=== PATIENT | female | born 1975 | race Caucasian/White ===

== ENCOUNTER 2024-05-03 07:29 | Observation (INO) ==
[2024-05-03] MEDS ORDERED: ALBUTEROL HFA 8 GM INHALER INH PRN (12:11)
[2024-05-03] MEDS ORDERED: HYDROCORTISONE HC 2.5% CRM 30GM TUBE EXT PRN (12:11)
[2024-05-03] MEDS ORDERED: traMADol HCL 50 MG TABLET PO PRN (12:11)
[2024-05-03] MEDS ORDERED: ALUMINUM/MAGNESIUM SUSP 30 ML UDC PO PRN (12:14)
[2024-05-03] MEDS ORDERED: oxyCODONE HCL IR 5 MG TAB (IMMEDIATE RELEASE) PO PRN (12:14)
[2024-05-03] MEDS ORDERED: ONDANSETRON INJ 2 MG/ML 2 ML VIAL IV PRN (12:14)
--- NOTE | 2024-05-03 13:03 | History & Physical Report ---
Date of Service May 03, 2024 Assessment & Plan (1) UTI (urinary tract infection): Plan: Patient developed a fever around 0300 on 05/03 and went to [facility] ED Direct transfer to [facility] for possible sepsis S/p ureteroscopy and laser lithotripsy with Dr. Trujillo on 05/02 Labs at : Lactate 2.2, WBC 11, BUN 35.4, creatinine 2.07, chloride 112, troponin 7, UA infected Lactate WNL at 0.7 on arrival No leukocytosis; afebrile Hx of recurrent UTIs Most recent UCx on 03/23/2024 grew Proteus mirabilis with resistance to Cipro/levofloxacin Ceftriaxone 2000 mg IV q24h Follow current UA/UCx/Blood cx Daily catheter care Acetaminophen as needed for fever/pain IVF with Plasma-Lyte at 100mL/hr x 2 Urology assistance appreciated A.m. CBC, BMP (2) Staghorn calculus: Plan: Left-sided staghorn calculus x 1 year Patient had a procedure in [place] 1 month ago to have half of it removed She has been following with [facility] for stage II ureteroscopy (will require 2-3 more to completely remove staghorn) KUB ordered by urology to assess left ureteral stent placement (3) Anemia: Plan: Hgb 7.5 on arrival; most recently 10.8 on 03/22/2024 Per review of operative note, EBL was listed as 0 cc Hx of SALLY; MCV WNL at 84.5 Clinically, no signs of active bleeding on physical exam Ferritin, iron labs ordered for a.m. Trend a.m. CBC (4) Thrombocytopenia: Plan: Mild; platelet count 104 on arrival Hold heparin VTE ppx if platelet count drops below <100 Follow a.m. CBCs (5) Type 2 diabetes mellitus: Plan: No A1c on record Glucose 112 on admission Hold Sitagliptin, metformin SSI; with target BSG range 120-160mg/dL, CF 20, carb ratio 7 T2DM diet BSG ACHS Adjust regimen as needed AM A1c (6) Psychological disorder: Plan: Patient exhibits severe anxiety on arrival, and is very concerned that she is going to Continue topiramate, sertraline, buspirone (7) IBS (irritable bowel syndrome): Plan: Continue hyoscyamine QID (8) Hemorrhoids: Plan: Hydrocortisone cream as needed (9) VANDANA (obstructive sleep apnea): Plan: BiPAP HS (10) Legally blind: (11) Left nephrolithiasis: Plan Disposition: Admit to [facility] telemetry Full code T2DM diet VTE PPx: Heparin 5000 units SQ q12h Admission and Anticipated Discharge Date Admission Date: May 03, 2024 History of Present Illness Chief Complaint: Fever in the setting of recent urologic procedure Primary Care Provider: José Miguel Ramírez is a 48-year-old female with PMH of legal blindness, left-sided staghorn calculus, T2DM, IBS, GERD, OCD, recurrent UTIs, and anxiety/depression. Patient recently had a stage II ureteroscopy and lithotripsy with [facility] on 05/02 for her left-sided staghorn calculus. This calculus is not new to her. It was discovered around 1 year ago, and she had a procedure in [place] last month to have half of it removed. While the patient was initially thinking of having PCNL at [place], it was determined that it was easier for her to have 2-3 procedures done at [facility] to have a staghorn removed. After her procedure on 05/02, she reports that she developed a fever around 3 AM at home (100.7 F). She took Tylenol, which she reports helped, then she went to [facility] ED. [facility] was concern for possible sepsis due to a lactate of 2.2, and the patient was transferred to the ICU at [facility]. She appears very anxious in the room, and does endorse all symptoms associated with prior UTIs (burning with urination, dysuria, and suprapubic tenderness). She reports she has not had any of her regular morning medicine for 2 days. She does not use a BiPAP at night; no other supplemental oxygen at home. She is a former tobacco cigarette smoker; quit 6 years ago. She denies any recent alcohol use. Patient's vitals are stable at time of admission. ROS: Patient endorses fever, cold intolerance, trouble breathing (which she attributes to her anxiety/paranoia), burning with urination, dysuria, suprapubic tenderness, ongoing diarrhea, and left leg sciatica. Patient denies night sweats, dizziness/lightheadedness with movements, headache, chest pain, chest palpitations, pleuritic CP, SOB, cough, abdominal pain, nausea, or vomiting. Per discussion with fabrication and layout craftsman, and urology, it is unclear why the patient was a direct admit transfer to the ICU rather than one of the [facility] telemetry floors. Allergies Allergy/AdvReac Type Severity Reaction Status Date / Time adhesive tape Allergy Severe Verified 05/03/24 14:17 Penicillins Allergy Severe Rash Verified 05/03/24 14:17 aspirin AdvReac Severe Advised to Verified 05/03/24 14:17 avoid "due to angioma" blood thinner AdvReac Severe Advised to Uncoded 05/03/24 14:17 avoid "due to angioma" Home Medications Medication Instructions Recorded Confirmed Type cholecalciferol (vitamin D3) 50 50 mcg PO QAM 11/18/20 05/03/24 History mcg (2,000 unit) capsule cyanocobalamin (vitamin B-12) 500 1,000 mcg PO QAM 11/18/20 05/03/24 History mcg tablet acetazolamide 500 mg 500 mg PO BID 09/23/22 05/03/24 History capsule,extended release sertraline 100 mg tablet 200 mg PO QAM 09/23/22 05/03/24 History topiramate 200 mg tablet 200 mg PO BID 09/23/22 05/03/24 History albuterol sulfate 90 mcg/actuation 2 puff inhalation Q6H PRN sob 11/04/22 05/03/24 History aerosol inhaler (Ventolin HFA) famotidine 20 mg tablet (Pepcid) 20 mg PO HS 11/04/22 05/03/24 History sitagliptin phosphate 50 mg tablet 50 mg PO HS 12/01/22 05/03/24 History (Januvia) ferrous sulfate 325 mg (65 mg 325 mg PO QAM 04/23/23 05/03/24 History iron) tablet (iron) lisinopril 5 mg tablet 5 mg PO HS 04/23/23 05/03/24 History pantoprazole 40 mg tablet,delayed 40 mg PO BID #60 tabs 08/05/23 05/03/24 Rx release ascorbic acid (vitamin C) 500 mg 500 mg PO BID 04/21/24 05/03/24 History tablet,extended release (Vitamin C With Uyen Hips) atorvastatin 10 mg tablet 10 mg PO HS 04/21/24 05/03/24 History buspirone 30 mg tablet 30 mg PO BID 04/21/24 05/03/24 History clindamycin phosphate 1 % lotion 1 applic topical DAILY PRN 04/21/24 05/03/24 History inflammed boils hydrocortisone 2.5 % topical cream 1 applic SD BID PRN hemorrhoids 04/21/24 05/03/24 History with perineal applicator hyoscyamine sulfate 0.125 mg tablet 0.125 mg PO QID 04/21/24 05/03/24 History solifenacin 10 mg tablet (Vesicare) 10 mg PO DAILY #30 tabs 04/25/24 05/03/24 Rx sulfamethoxazole 800 1 tab PO BID #10 tabs 05/02/24 05/03/24 Rx mg-trimethoprim 160 mg tablet (Bactrim DS) tramadol 50 mg tablet 50 mg PO Q6H PRN pain #20 tabs 05/02/24 05/03/24 Rx metformin 500 mg tablet,extended 1,000 mg PO QAM 05/03/24 05/03/24 History release 24 hr nystatin 100,000 unit/gram topical 1 applic topical HS 05/03/24 05/03/24 History powder tamsulosin 0.4 mg capsule 0.4 mg PO DAILY 05/03/24 05/03/24 History Past Med/Surg History Problem List (Updated 05/03/24 @ 18:38 by Asad Infante PA-C) Thrombocytopenia Anemia Ureteral stent present Hemorrhoids occasional bleeding UTI (urinary tract infection) Staghorn calculus Left nephrolithiasis Nausea Diarrhea Encounter for pre-operative examination Hemorrhoids Heme positive stool GERD (gastroesophageal reflux disease) IBS (irritable bowel syndrome) Type 2 diabetes mellitus Cellulitis Legally blind VANDANA (obstructive sleep apnea) BiPAP UTI symptoms Obsessive compulsive disorder Anxiety and depression Frequency of micturition Urgency of urination Arthritis (Acute) Asthma (Acute) Psychological disorder (Acute) Sensation of pressure in bladder area (Acute) History of recurrent UTIs Medical History Osteoarthritis Diabetes mellitus, type 2 NIDDM Chronic sinusitis Staghorn calculus current - left side History of recurrent UTI (urinary tract infection) Legally blind VANDANA (obstructive sleep apnea) Bipap at night Hx of necrotizing fasciitis (2017) unknown cause. IBS (irritable bowel syndrome) Hemorrhoids occasional bleeding GERD (gastroesophageal reflux disease) Pseudotumor cerebri follows with [facility] Neurology Angioma brain angioma -- follows with [facility] neurology Orthopnea Overactive bladder Anxiety severe Depression OCD (obsessive compulsive disorder) Morbid obesity with BMI of 70 and over, adult Asthma well controlled Iron deficiency anemia Surgical History History of cystoscopy with stent placement and removal "some of the kidney stone" at [facility] 03/30/24 History of colonoscopy History of open reduction and internal fixation (ORIF) procedure LLE History of tonsillectomy History of x2 History of cholecystectomy History of surgery (2017) RLE x 7 surgeries r/t necrotizing fasciitis Family History Other Bladder cancer No family history of adverse response to anesthesia Social History Smoking Status: Former smoker Tobacco Type: Cigarettes Second Hand Exposure: No; Do You Dip or Chew Tobacco: No; Hx Alcohol Use: No Hx Substance Use: No Preferred Language: Lao Communication Ability: Effective Communication Ability Comment: pt is legally blind. does not read braille Cable Stretcher And Tester Required: No Beliefs That Will Affect Care: None Current Living Situation: Other Feels Safe at Home: Yes Assistive Devices: None Review of Systems Review of Systems: See HPI above Physical Exam Physical Exam: General: no acute distress; anxious; non-toxic appearing; cooperative; morbid obesity; SpO2 100% on RA; afebrile HEENT: normocephalic, atraumatic; no scleral icterus; PERRLA; unable to assess vision; hearing grossly intact Neck: supple; no lymphadenopathy; trachea midline Skin: warm, dry without signs of tenting; no cyanosis; no rashes, bruising, lesions, or erythema noted on the extremities, abdomen, flanks, or back CV: chest wall NTP; RRR; S1/S2 normal; no murmurs/rubs/gallops; pulses intact and symmetric at radial, DP, and PT Lungs: no acute respiratory distress; symmetrical chest wall expansion; clear breath sounds across all lung jain w/o adventitious sounds; no wheezing ABD: Soft, NTP; BS present; no rebound/guarding; suboptimal exam secondary to patient's body habitus; distention secondary to body habitus; negative CVA tenderness MSK: no tics or fasciculations; no edema noted in the LEs b/l, nonerythematous Neuro: A&Ox3; normal mood and affect; fluent speech; no focal deficits; sensation grossly intact and symmetric in the LEs b/l Results & Data Results & Data Vital Signs (Past 12 Hours) Vital Signs Temp Resp BP Pulse Ox O2 Del Method 05/03/24 12:17 Room Air 05/03/24 11:49 37.3 C 26 H 111/56 L 93 Room Air Laboratory Results Abnormal lab results 05/03/24 Range/Units 12:06 POC Glucose 112 H (70-99) mg/dl ECG Additional Comments: ECG revealed NSR at 99 bpm; QTc 526 (caution use of QT prolonging agents) Code Status & VTE Plan Code Status Full code VTE Prophylaxis Plan VTE Prophylaxis will be ordered: Yes Supervising Physician Co-Signing Physician Notes Patient was seen and examined independently I discussed the case with JEREMY MILAN I reviewed pertinent past medical social family history and also the plan of care and agree with the plan of care. Transfer to [facility] for concern for sepsis from the urological source with recent urological procedure with a lithotripsy for staghorn calculus on May 02. Patient previous had Proteus mirabilis urinary tract infection with some resistances. Patient was given vancomycin and Rocephin in the ER [place] subsequent continues on ceftriaxone here She had mild BERE on CKD 3 Patient is stable condition she is sight impaired . She appears no distress cardiac exam is regular lungs are clear Patient will be continued on Rocephin therapy hydration and follow renal function. She is minorly anemic undetermined this is a chronic disease and I will continue to follow. Any exceptions will be noted below PG Care Time/CCT Total # of Minutes Spent Total Time Spent with Patient: Total time spent is greater than 50% in coordination of care (as documented) at patient's floor/unit and/or counseling patient: C[place] [address] INT INP/OBS CARE 3/75MIN Patient Type Established Medical Decision Making High Complexity Diagnoses UTI (urinary tract infection) N39.0 Staghorn calculus N20.0 Anemia D64.9 Thrombocytopenia D69.6 Type 2 diabetes mellitus E11.9 Psychological disorder F99 IBS (irritable bowel syndrome) K58.9 Hemorrhoids K64.9 VANDANA (obstructive sleep apnea) G47.33 Legally blind H54.8 Left nephrolithiasis N20.0
[2024-05-03] MEDS: SODIUM CHLORIDE 0.9% 1,000 ML IV SCH (13:25)
[2024-05-03] MEDS: HYOSCYAMINE SULFATE 0.125 MG TAB PO SCH (13:26)
[2024-05-03] MEDS: cefTRIAXone SODIUM 2,000 MG/50 ML BAG IV SCH (13:26)
[2024-05-03 13:29] LABS: Anion Gap 6 (3-11); BUN Creatinine Ratio 20.5 (10-20); Blood Urea Nitrogen 36 mg/dl (6-23); Calcium 7.9 mg/dl (8.6-10.3); Carbon Dioxide 20 mmol/L (21-32); Chloride 111 mmol/L (98-107); Est GFR (African American) 38.7 ml/min; Est GFR (Non-African American) 33.4 ml/min; Glucose 107 mg/dl (70-99(Fasting)); Sodium 137 mmol/L (136-145)
[2024-05-03] MEDS: INSULIN ASPART PER UNIT CHARGE SC SCH (14:17)
--- NOTE | 2024-05-03 14:28 | Urology Consultation ---
Date of Consultation May 03, 2024 Assessment & Plan (1) UTI (urinary tract infection): (2) Staghorn calculus: (3) Ureteral stent present: Plan 48yo/F with a hx of left staghorn stone s/p Left URS/LL on 05/02 who was a direct transfer to [facility] from [facility] due to concern of sepsis. - Afebrile, hemodynamically stable, non-toxic appearing. - Labs on arrival - creatinine 1.76. - UCx to be collected. Blood cultures pending. On Ceftriaxone. Most recent UCx on 03/23/2024 grew Proteus mirabilis resistant to fluoroquinolones. - Voiding without issue. Has external cath in place. Continue to monitor. Bladder scan PRN. - KUB ordered to assess left stent placement. - Continue antibiotics and tailor as culture data becomes available. - Continue supportive care. - Urology will follow along. History of Present Illness Attending Physician: Bg Sibley MD History of Present Illness 48-year-old female with PMHx including legal blindness, left-sided staghorn calculus, T2DM, IBS, GERD, OCD, recurrent UTIs, and anxiety/depression who underwent Left URS/LL/stent on 05/02 for her left-sided staghorn calculus. After her procedure on 05/02, she developed fever at home of 100.7F for which she took Tylenol. She then proceeded to [facility] ED for evaluation. At , there was concern for possible sepsis due to lactate of 2.2 and the patient was transferred to ICU at [facility]. On arrival, she was afebrile and hemodynamically stable. Labs shows a creatinine of 1.76. Blood cultures collected and pending. IV Ceftriaxone given. KUB ordered to check stent placement. Labs at : Lactate 2.2, WBC 11, creatinine 2.07. Pt seen at bedside in the ICU. Awake, resting in bed eating lunch on arrival. No acute distress. Very anxious at time of exam. She reports some bladder discomfort with voiding. External purewick cath in place. Feels she is emptying her bladder well. Reports fever at home. No nausea or vomiting. Pt is well known to the urology service, follows with Dr. Trujillo. Allergies Allergy/AdvReac Type Severity Reaction Status Date / Time adhesive tape Allergy Severe Verified 05/03/24 14:17 Penicillins Allergy Severe Rash Verified 05/03/24 14:17 aspirin AdvReac Severe Advised to Verified 05/03/24 14:17 avoid "due to angioma" blood thinner AdvReac Severe Advised to Uncoded 05/03/24 14:17 avoid "due to angioma" Home Medications Medication Instructions Recorded Confirmed Type cholecalciferol (vitamin D3) 50 50 mcg PO QAM 11/18/20 05/03/24 History mcg (2,000 unit) capsule cyanocobalamin (vitamin B-12) 500 1,000 mcg PO QAM 11/18/20 05/03/24 History mcg tablet acetazolamide 500 mg 500 mg PO BID 09/23/22 05/03/24 History capsule,extended release sertraline 100 mg tablet 200 mg PO QAM 09/23/22 05/03/24 History topiramate 200 mg tablet 200 mg PO BID 09/23/22 05/03/24 History albuterol sulfate 90 mcg/actuation 2 puff inhalation Q6H PRN sob 11/04/22 05/03/24 History aerosol inhaler (Ventolin HFA) famotidine 20 mg tablet (Pepcid) 20 mg PO HS 11/04/22 05/03/24 History sitagliptin phosphate 50 mg tablet 50 mg PO HS 12/01/22 05/03/24 History (Januvia) ferrous sulfate 325 mg (65 mg 325 mg PO QAM 04/23/23 05/03/24 History iron) tablet (iron) lisinopril 5 mg tablet 5 mg PO HS 04/23/23 05/03/24 History pantoprazole 40 mg tablet,delayed 40 mg PO BID #60 tabs 08/05/23 05/03/24 Rx release ascorbic acid (vitamin C) 500 mg 500 mg PO BID 04/21/24 05/03/24 History tablet,extended release (Vitamin C With Uyen Hips) atorvastatin 10 mg tablet 10 mg PO HS 04/21/24 05/03/24 History buspirone 30 mg tablet 30 mg PO BID 04/21/24 05/03/24 History clindamycin phosphate 1 % lotion 1 applic topical DAILY PRN 04/21/24 05/03/24 History inflammed boils hydrocortisone 2.5 % topical cream 1 applic ID BID PRN hemorrhoids 04/21/24 05/03/24 History with perineal applicator hyoscyamine sulfate 0.125 mg tablet 0.125 mg PO QID 04/21/24 05/03/24 History solifenacin 10 mg tablet (Vesicare) 10 mg PO DAILY #30 tabs 04/25/24 05/03/24 Rx sulfamethoxazole 800 1 tab PO BID #10 tabs 05/02/24 05/03/24 Rx mg-trimethoprim 160 mg tablet (Bactrim DS) tramadol 50 mg tablet 50 mg PO Q6H PRN pain #20 tabs 05/02/24 05/03/24 Rx metformin 500 mg tablet,extended 1,000 mg PO QAM 05/03/24 05/03/24 History release 24 hr nystatin 100,000 unit/gram topical 1 applic topical HS 05/03/24 05/03/24 History powder tamsulosin 0.4 mg capsule 0.4 mg PO DAILY 05/03/24 05/03/24 History Patient History Medical History Osteoarthritis Diabetes mellitus, type 2 NIDDM Chronic sinusitis Staghorn calculus current - left side History of recurrent UTI (urinary tract infection) Legally blind VANDANA (obstructive sleep apnea) Bipap at night Hx of necrotizing fasciitis (2017) unknown cause. IBS (irritable bowel syndrome) Hemorrhoids occasional bleeding GERD (gastroesophageal reflux disease) Pseudotumor cerebri follows with [facility] Neurology Angioma brain angioma -- follows with [facility] neurology Orthopnea Overactive bladder Anxiety severe Depression OCD (obsessive compulsive disorder) Morbid obesity with BMI of 70 and over, adult Asthma well controlled Iron deficiency anemia Surgical History History of cystoscopy with stent placement and removal "some of the kidney stone" at [facility] 03/30/24 History of colonoscopy History of open reduction and internal fixation (ORIF) procedure LLE History of tonsillectomy History of x2 History of cholecystectomy History of surgery (2017) RLE x 7 surgeries r/t necrotizing fasciitis Family History Other Bladder cancer No family history of adverse response to anesthesia Social History Smoking Status: Former smoker Tobacco Type: Cigarettes Second Hand Exposure: No; Do You Dip or Chew Tobacco: No; Hx Alcohol Use: No Hx Substance Use: No Preferred Language: Sami Communication Ability: Effective Communication Ability Comment: pt is legally blind. does not read braille Lead Systems Engineer Required: No Beliefs That Will Affect Care: None Current Living Situation: Other Feels Safe at Home: Yes Assistive Devices: None Review of Systems Review of Systems: All systems reviewed & are unremarkable except as noted in HPI & below Physical Exam Constitutional: + obese; no acute distress Eyes: Legally blind Neck: normal visual inspection Respiratory: no respiratory distress and no labored breathing Musculoskeletal: Head/Neck/Chest: normocephalic Skin: No visible rashes or lesions to exposed skin areas Neurologic: awake Psychiatric: Orientation: alert and oriented x 3 Affect: + anxious affect Results & Data Vital Signs (Past 12 Hours) Vital Signs Temp Pulse Resp BP Pulse Ox Pulse Ox O2 Del Method 05/03/24 13:28 36.8 C 24 117/62 100 Room Air 05/03/24 13:27 100 05/03/24 12:17 Room Air 05/03/24 11:49 37.3 C 26 H 111/56 L 93 Room Air 05/03/24 11:36 95 H O2 Del Method 05/03/24 13:28 05/03/24 13:27 Room Air 05/03/24 12:17 05/03/24 11:49 05/03/24 11:36 PG Care Time/CCT Total # of Minutes Spent Total Time Spent with Patient: Total time spent is greater than 50% in coordination of care (as documented) at patient's floor/unit and/or counseling patient: Coding Level of Care Code 28156 IN/OBS CONSULT LVL 3,45M Diagnoses UTI (urinary tract infection) N39.0 Staghorn calculus N20.0 Ureteral stent present Z96.0
[2024-05-03] MEDS: PLASMA-LYTE A 1,000 ML IV SCH (14:53)
--- NOTE | 2024-05-03 15:01 | Electrocardiogram Report ---
Test Reason : Blood Pressure : / mmHG Vent. Rate : 099 BPM Atrial Rate : 100 BPM P-R Int : 150 ms QRS Dur : 102 ms QT Int : 410 ms P-R-T Axes : 047 043 038 degrees QTc Int : 526 ms Age and gender specific ECG analysis Normal sinus rhythm Left atrial enlargement ST depression in Anterior leads , consider ischemia Abnormal ECG No previous ECGs available Confirmed by Edy Flores ([id number]) on 05/03/2024 3:00:57 PM Referred By: Twan Kinsey Confirmed By:Edy Flores
[2024-05-03 15:25] LABS: Basophils # (auto) 0.02 K/uL (0.00-0.20); Basophils % (auto) 0.3 %; Hemoglobin 7.5 g/dl (12.0-16.0); Immature Granulocytes # (auto) 0.04 K/uL (0.01-0.20); Immature Granulocytes % (auto) 0.6 %; Lymphocytes # (auto) 0.48 K/uL (1.20-3.40); Lymphocytes % (auto) 7.2 %; Mean Corpuscular Hemoglobin 25.3 pg (25.0-34.0); Mean Corpuscular Volume 84.5 fL (80.0-100.0); Mean Platelet Volume 9.3 fL (9.4-12.4); Monocytes # (auto) 0.67 K/uL (0.11-0.59); Neutrophils % (auto) 81.9 %; Platelet Count 104 K/uL (130-400); RDW Coefficient of Variation 15.8 % (11.5-14.5); RDW Standard Deviation 48.3 fL (36.4-46.3); Red Blood Count 2.96 M/uL (4.20-5.40); White Blood Count 6.71 K/ul (4.8-10.8)
[2024-05-03 15:49] LABS: Microcytosis Present
--- NOTE | 2024-05-03 16:52 | XRay Report ---
KUB CLINICAL HISTORY: Left ureteral stent placement. FINDINGS: An AP, portable, supine abdominal radiograph is compared to study dated 04/19/2024. Cholecys tectomy clips are noted in the right upper quadrant. A left ureteral stent is in place. No calcificat ions are clearly seen in the left ureter along the course of the stent. Suspect a large staghorn calc ulus of the left kidney. No bowel obstruction is identified. The skeletal structures are osteopenic a nd appear intact. IMPRESSION: 1. A left ureteral stent is in place. No calcifications are seen along the course of the stent. 2. Suspect a large Staghorn calculus within the left renal collecting system. Electronically signed by: Anmol Mosqueda M.D. 05/03/2024 4:50 PM
--- NOTE | 2024-05-03 19:38 | Communication Note ---
Date of Service: May 03, 2024 [facility] urology team asked this provider to follow-up on results of KUB as patient has had a recent cystoscopy with ureteral stent. The KUB was reviewed from today and it does appear that patient's left ureteral stent is in good position.
[2024-05-03] MEDS: ACETAMINOPHEN 325 MG TAB PO PRN (19:56)
[2024-05-03 20:07] LABS: Appearance Urine Turbid (Clear); Bacteria Urine Automated 2+ (None Seen); Bilirubin Urine Negative (Negative); Blood Urine 3+ (Negative); Color Urine Orange; Glucose Urine UA Negative (Negative); Ketones Urine Negative (Negative); Leukocyte Esterase Urine 3+ (Negative); Nitrite Urine Negative (Negative); Protein Urine 3+ (Negative); RBC Urine Automated >20 /hpf (0-2); Specific Gravity Urine 1.017 (1.000-1.030); Urobilinogen Urine Negative (Negative); WBC Urine Automated >50 /hpf (0-5)
[2024-05-03] MEDS: ATORVASTATIN 10 MG TAB PO SCH (23:04)
[2024-05-03] MEDS: lisinopril 5 MG TAB PO SCH (23:04)
[2024-05-03] MEDS: PANTOprazole 40 MG TAB PO SCH (23:05)
[2024-05-03] MEDS: acetaZOLAMIDE 500 MG CAPCR PO SCH (23:05)
[2024-05-03] MEDS: busPIRone 15 MG TAB PO SCH (23:05)
[2024-05-03] MEDS: TOPIRAMATE 100 MG TAB PO SCH (23:05)
[2024-05-03] MEDS: FAMOTIDINE 20 MG TAB PO SCH (23:06)
[2024-05-03] MEDS: HEPARIN SOD 5,000 UNIT/0.5 ML VIAL SQ SCH (23:06)
[2024-05-04] MEDS: MENTHOL-ZINC OXIDE 360 APPLN/120 GM TUBE EXT SCH (00:54)
--- NOTE | 2024-05-04 07:52 | Hospitalist Progress Note ---
Date of Service May 04, 2024 Assessment & Plan (1) UTI (urinary tract infection): Plan: Patient developed a fever around 0300 on 05/03 and went to [facility] ED She was transferred to [place] for possible sepsis in the setting of recent lithotripsy on 05/02 Lactate WNL at 0.7 on arrival No leukocytosis; afebrile Patient remains afebrile on 05/04 Hx of recurrent UTIs Most recent UCx on 03/23/2024 grew Proteus mirabilis with resistance to Cipro/levofloxacin Continue ceftriaxone 2000 mg IV q24h Follow current UA/UCx/Blood cx Daily catheter care Acetaminophen as needed for fever/pain Additional IVF with Plasma-Lyte at 100mL/hr x 2 (set to end on 05/05) Urology assistance appreciated Creatinine level increased overnight from 1.76 on 05/03 --> 1.89 on 05/04 Once trending in the right direction, she can likely be discharged on p.o. antibiotics Hold lisinopril A.m. CBC, BMP (2) Staghorn calculus: Plan: Left-sided staghorn calculus x 1 year Patient had a procedure in [place] 1 month ago to have half of it removed She has been following with [place] urology for stage II ureteroscopy (will require 2-3 more to completely remove staghorn) KUB on 05/03 showed left ureteral stent is in place (3) Iron deficiency anemia: Plan: Hgb 7.5 on 05/03 --> 8.4 on 05/04 Per review of operative note, EBL was listed as 0 cc Hx of SALLY; MCV WNL at 84.5 Clinically, no signs of active bleeding on physical exam Iron < 10 L on a.m. labs 05/04 Ferritin WNL Patient reports she has not been taking her iron prior to urologic procedure Restart ferrous sulfate 325 mg p.o. daily at 6 PM Trend a.m. CBC (4) Fall: Plan: Patient sustained a mechanical ground-level fall while ambulating with her walker on the afternoon of 05/04 No head strike; no LOC; however, patient was able to get up on her own and a code lift was called Fall precaution PT/OT evaluations appreciate (5) Type 2 diabetes mellitus: Plan: A1c 5.5% on 05/04 Hold Sitagliptin, metformin Loose SSI with target BSG range 120-160mg/dL, CF 20, carb ratio 7 T2DM diet BSG ACHS Adjust regimen as needed (6) Psychological disorder: Plan: Patient exhibits severe anxiety on arrival, and is very concerned that she is going to Continue topiramate, sertraline, buspirone (7) IBS (irritable bowel syndrome): Plan: Continue hyoscyamine QID (8) Hemorrhoids: Plan: Hydrocortisone cream as needed (9) VANDANA (obstructive sleep apnea): Plan: BiPAP HS (10) Thrombocytopenia: Plan: Mild; platelet count 105 on 05/04 (11) Angioma: Plan: Patient follows with [facility] Hold chemical DVT PPx (12) Legally blind: (13) Left nephrolithiasis: Plan Disposition: Downgrade MedSurg telemetry --> MedSurg Full code T2DM diet VTE PPx: Patient has been declining blood thinners; will start on SCDs Admission and Anticipated Discharge Date Admission Date: May 03, 2024 Subjective Patient denies any new fevers since she has been in the hospital. She remains anxious, and is concerned about her overall state of health. Her only new symptom at this time is loose stool, but she attributes this to her IBS, which commonly acts up when she is in the hospital. She is not having any new UTI symptoms other than frequent urination (in the setting of IV fluids); burning with urination has resolved. She reports she is eating and drinking well, and ambulating well with a walker. She reports that she has been declining her heparin SQ BID as she was told in the past that she has a history of carcinous angioma, and has weak blood vessels in her brain by a neurologist; for this reason she is not allowed to take aspirin or any blood thinners. She would like to be updated regularly with her hemoglobin levels and white blood cell count. She is okay to use powder on her creases, that she plans to bring in from home. ROS: Patient endorses sweating, increased urinary frequency, and potential blood in her urine. Patient denies fever, chills, chest pain, chest pressure, chest palpitations, SOB, cough, pleuritic CP, wheezing, abdominal pain, N/V/D, burning with urination, or blood in her stool. Addendum written at 1417: Patient was a "code lift" this afternoon. She reportedly fell while walking; no head strike; no LOC. Patient is not currently on blood thinners. Patient reports that she might have banged her right ankle, but denies any other injuries. Initially, attempted to lift patient with 2 other security guards, but was unable. Patient was very anxious at this time regarding being lifted. Nursing obtained Radha lift from sterile processing, and were able to successfully get her back into bed. Review of Systems Review of Systems: See HPI above Physical Exam Physical Exam: General: no acute distress; anxious; non-toxic appearing; cooperative; morbid obesity; SpO2 100% on RA; afebrile HEENT: normocephalic, atraumatic; no scleral icterus; PERRLA; unable to assess vision; hearing grossly intact Neck: supple; no lymphadenopathy; trachea midline Skin: warm, dry without signs of tenting; no cyanosis; no rashes, bruising, lesions, or erythema noted on the extremities, abdomen, flanks, or back CV: chest wall NTP; RRR; S1/S2 normal; no murmurs/rubs/gallops; pulses intact and symmetric at radial, DP, and PT Lungs: no acute respiratory distress; symmetrical chest wall expansion; clear breath sounds across all lung jain w/o adventitious sounds; no wheezing ABD: Soft, NTP; BS present; no rebound/guarding; suboptimal exam secondary to patient's body habitus; distention secondary to body habitus Back: Negative CVA tenderness MSK: no tics or fasciculations; no edema noted in the LEs b/l, nonerythematous Neuro: A&Ox3; normal mood and affect; fluent speech; no focal deficits; sensation grossly intact and symmetric in the LEs b/l Results & Data Results & Data Vital Signs (Past 12 Hours) Vital Signs Temp Pulse Pulse Resp BP BP Pulse Ox 05/04/24 03:14 36.6 C 84 18 111/69 97 05/04/24 00:22 81 17 97 05/03/24 22:24 37.1 C 93 H 16 112/69 95 05/03/24 22:00 85 O2 Del Method FiO2 05/04/24 03:14 Room Air 05/04/24 00:22 21 05/03/24 22:24 Room Air 05/03/24 22:00 Laboratory Results Abnormal lab results 05/03/24 05/03/24 05/03/24 Range/Units 12:34 14:48 17:10 RBC 2.96 L (4.20-5.40) M/uL Hgb 7.5 L (12.0-16.0) g/dl Hct 25.0 L (37.0-47.0) % MCHC 30.0 L (32.0-36.0) g/dL RDW Std Deviation 48.3 H (36.4-46.3) fL RDW Coeff of Eleni 15.8 H (11.5-14.5) % Plt Count 104 L (130-400) K/uL MPV 9.3 L (9.4-12.4) fL Lymph # (Auto) 0.48 L (1.20-3.40) K/uL Island # (Auto) 0.67 H (0.11-0.59) K/uL Chloride 111 H (98-107) mmol/L Carbon Dioxide 20 L (21-32) mmol/L BUN 36 H (6-23) mg/dl Creatinine 1.76 H (0.6-1.2) mg/dl BUN/Creatinine Ratio 20.5 H (10-20) Glucose 107 H (70-99(Fasting)) mg/dl POC Glucose 118 H (70-99) mg/dl Calcium 7.9 L (8.6-10.3) mg/dl Iron (35-150) mcg/dl Unsaturated IBC (155-355) mcg/dl Urine Appearance (Clear) Urine Protein (Negative) Urine Blood (Negative) Ur Leukocyte Esterase (Negative) Urine WBC (Auto) (0-5) /hpf Urine RBC (Auto) (0-2) /hpf U Hyaline Cast (Auto) (0-2) /lpf U Epithel Cells (Auto) (0-2) /hpf Urine Bacteria (Auto) (None Seen) Urine Yeast (None Prsent) 05/03/24 05/03/24 05/04/24 Range/Units 19:42 19:57 07:40 RBC 3.27 L (4.20-5.40) M/uL Hgb 8.4 L (12.0-16.0) g/dl Hct 28.2 L (37.0-47.0) % MCHC 29.8 L (32.0-36.0) g/dL RDW Std Deviation 49.3 H (36.4-46.3) fL RDW Coeff of Eleni 15.9 H (11.5-14.5) % Plt Count 105 L (130-400) K/uL MPV (9.4-12.4) fL Lymph # (Auto) (1.20-3.40) K/uL Island # (Auto) (0.11-0.59) K/uL Chloride 113 H (98-107) mmol/L Carbon Dioxide 19 L (21-32) mmol/L BUN 36 H (6-23) mg/dl Creatinine 1.89 H (0.6-1.2) mg/dl BUN/Creatinine Ratio (10-20) Glucose (70-99(Fasting)) mg/dl POC Glucose 112 H (70-99) mg/dl Calcium 8.2 L (8.6-10.3) mg/dl Iron < 10 L (35-150) mcg/dl Unsaturated IBC 143 L (155-355) mcg/dl Urine Appearance Turbid A (Clear) Urine Protein 3+ H (Negative) Urine Blood 3+ H (Negative) Ur Leukocyte Esterase 3+ H (Negative) Urine WBC (Auto) >50 H (0-5) /hpf Urine RBC (Auto) >20 H (0-2) /hpf U Hyaline Cast (Auto) 3-5 H (0-2) /lpf U Epithel Cells (Auto) 11-20 H (0-2) /hpf Urine Bacteria (Auto) 2+ H (None Seen) Urine Yeast Present A (None Prsent) 05/04/24 05/04/24 Range/Units 08:07 12:20 RBC (4.20-5.40) M/uL Hgb (12.0-16.0) g/dl Hct (37.0-47.0) % MCHC (32.0-36.0) g/dL RDW Std Deviation (36.4-46.3) fL RDW Coeff of Eleni (11.5-14.5) % Plt Count (130-400) K/uL MPV (9.4-12.4) fL Lymph # (Auto) (1.20-3.40) K/uL Island # (Auto) (0.11-0.59) K/uL Chloride (98-107) mmol/L Carbon Dioxide (21-32) mmol/L BUN (6-23) mg/dl Creatinine (0.6-1.2) mg/dl BUN/Creatinine Ratio (10-20) Glucose (70-99(Fasting)) mg/dl POC Glucose 101 H 102 H (70-99) mg/dl Calcium (8.6-10.3) mg/dl Iron (35-150) mcg/dl Unsaturated IBC (155-355) mcg/dl Urine Appearance (Clear) Urine Protein (Negative) Urine Blood (Negative) Ur Leukocyte Esterase (Negative) Urine WBC (Auto) (0-5) /hpf Urine RBC (Auto) (0-2) /hpf U Hyaline Cast (Auto) (0-2) /lpf U Epithel Cells (Auto) (0-2) /hpf Urine Bacteria (Auto) (None Seen) Urine Yeast (None Prsent) PG Care Time/CCT Total # of Minutes Spent Total Time Spent with Patient: Total time spent is greater than 50% in coordination of care (as documented) at patient's floor/unit and/or counseling patient: [place] [address] SUB INP/OBS CARE 3/50MIN Patient Type Established History Comprehensive Exam Comprehensive Medical Decision Making Moderate Complexity Diagnoses UTI (urinary tract infection) N39.0 Staghorn calculus N20.0 Iron deficiency anemia D50.9 Fall W19.XXXA Type 2 diabetes mellitus E11.9 Psychological disorder F99 IBS (irritable bowel syndrome) K58.9 Hemorrhoids K64.9 VANDANA (obstructive sleep apnea) G47.33 Thrombocytopenia D69.6 Angioma D18.00 Legally blind H54.8 Left nephrolithiasis N20.0
[2024-05-04 08:04] LABS: Hematocrit (blood only) 28.2 % (37.0-47.0); Hemoglobin 8.4 g/dl (12.0-16.0); Mean Corpuscular Hemoglobin 25.7 pg (25.0-34.0); Mean Corpuscular Hgb Conc 29.8 g/dL (32.0-36.0); Mean Corpuscular Volume 86.2 fL (80.0-100.0); Mean Platelet Volume 9.4 fL (9.4-12.4); Platelet Count 105 K/uL (130-400); RDW Coefficient of Variation 15.9 % (11.5-14.5); RDW Standard Deviation 49.3 fL (36.4-46.3); Red Blood Count 3.27 M/uL (4.20-5.40); White Blood Count 5.49 K/ul (4.8-10.8)
[2024-05-04] MEDS: SERTRALINE HCL 100 MG TABLET PO SCH (08:06)
[2024-05-04] MEDS: OXYBUTYNIN CHLORIDE XL 5 MG TABCR PO SCH (08:07)
[2024-05-04 08:35] LABS: Anion Gap 8 (3-11); Blood Urea Nitrogen 36 mg/dl (6-23); Calcium 8.2 mg/dl (8.6-10.3); Carbon Dioxide 19 mmol/L (21-32); Chloride 113 mmol/L (98-107); Est GFR (African American) 35.5 ml/min; Est GFR (Non-African American) 30.6 ml/min; Glucose 96 mg/dl (70-99(Fasting)); Sodium 140 mmol/L (136-145)
[2024-05-04 08:37] LABS: Iron < 10 mcg/dl (35-150); Unsaturated Iron Binding Cap 143 mcg/dl (155-355)
[2024-05-04] MEDS: FERROUS SULFATE 325 MG TAB PO SCH ×2 (08:39→17:14)
[2024-05-04 08:54] LABS: Ferritin 124.6 ng/ml (8-388)
[2024-05-04 09:02] LABS: Estimated Average Glucose 111 mg/dl; Hemoglobin A1C 5.5 % (4.5-5.6)
[2024-05-04] MEDS: CHOLECALCIFEROL 25 MCG (1000 UNITS) TAB PO SCH (09:14)
[2024-05-04] MEDS: CYANOCOBALAMIN (B-12) 500 MCG TABLET PO SCH (09:14)
--- NOTE | 2024-05-04 09:21 | Urology Progress Note ---
Date of Service May 04, 2024 Assessment & Plan (1) UTI (urinary tract infection): (2) Staghorn calculus: (3) Ureteral stent present: Plan 48yo/F with a hx of left staghorn stone s/p Left URS/LL on 05/02 who was a direct transfer to [place] from [facility] due to concern of sepsis. - Afebrile and hemodynamically stable at present. - Labs reviewed - WBC 5.49, Hemoglobin 8.4, Creatinine 1.89. Continue to trend. - Urine and blood cultures pending. On Ceftriaxone. - Voiding without issue. Continue to monitor. Bladder scan PRN. - KUB shows the left ureteral stent in appropriate position. - Continue antibiotics and tailor as culture data becomes available. - Continue supportive care. - No acute intervention warranted. - Urology will follow. Admission and Anticipated Discharge Date Admission Date: May 03, 2024 Subjective Pt seen at bedside this AM Awake, sitting in bedside chair on arrival No acute distress She reports some mild stent discomfort No fevers Voiding spontaneously Review of Systems Constitutional: as per Subjective / HPI Genitourinary: as per Subjective / HPI Physical Exam Constitutional: + obese; no acute distress Eyes: Legally blind Respiratory: no respiratory distress and no labored breathing Neurologic: awake Psychiatric: Orientation: alert and oriented x 3 Affect: + anxious affect Results & Data Vital Signs (Past 12 Hours) Vital Signs Temp Pulse Pulse Resp BP BP Pulse Ox 05/04/24 08:25 36.8 C 87 17 102/62 98 05/04/24 03:14 36.6 C 84 18 111/69 97 05/04/24 00:22 81 17 97 05/03/24 22:24 37.1 C 93 H 16 112/69 95 05/03/24 22:00 85 O2 Del Method FiO2 05/04/24 08:25 Room Air 05/04/24 03:14 Room Air 05/04/24 00:22 21 05/03/24 22:24 Room Air 05/03/24 22:00 PG Care Time/CCT Total # of Minutes Spent Total Time Spent with Patient: Total time spent is greater than 50% in coordination of care (as documented) at patient's floor/unit and/or counseling patient: Coding Level of Care Code 35520 SUB INP/OBS CARE 2/35MIN Diagnoses UTI (urinary tract infection) N39.0 Staghorn calculus N20.0 Ureteral stent present Z96.0
[2024-05-04] MEDS: PLASMA-LYTE A 1,000 ML IV SCH (17:14)
[2024-05-04] MEDS: HYOSCYAMINE SULFATE 0.125 MG TAB PO SCH (20:40)
[2024-05-05] MEDS: NYSTATIN POWDER 15GM BTL EXT PRN (05:19)
[2024-05-05 07:29] LABS: Hematocrit (blood only) 25.2 % (37.0-47.0); Hemoglobin 7.4 g/dl (12.0-16.0); Mean Corpuscular Hemoglobin 25.3 pg (25.0-34.0); Mean Corpuscular Hgb Conc 29.4 g/dL (32.0-36.0); Mean Corpuscular Volume 86.3 fL (80.0-100.0); Mean Platelet Volume 9.7 fL (9.4-12.4); Platelet Count 115 K/uL (130-400); RDW Coefficient of Variation 15.7 % (11.5-14.5); RDW Standard Deviation 49.7 fL (36.4-46.3); Red Blood Count 2.92 M/uL (4.20-5.40); White Blood Count 4.19 K/ul (4.8-10.8)
[2024-05-05 07:58] LABS: Anion Gap 8 (3-11); Blood Urea Nitrogen 34 mg/dl (6-23); Calcium 8.2 mg/dl (8.6-10.3); Carbon Dioxide 19 mmol/L (21-32); Chloride 115 mmol/L (98-107); Est GFR (African American) 40.3 ml/min; Est GFR (Non-African American) 34.8 ml/min; Glucose 103 mg/dl (70-99(Fasting)); Potassium 4.1 mmol/L (3.5-5.1); Sodium 142 mmol/L (136-145)
--- NOTE | 2024-05-05 08:47 | Urology Progress Note ---
Date of Service May 05, 2024 Assessment & Plan (1) UTI (urinary tract infection): (2) Staghorn calculus: (3) Ureteral stent present: Plan 48yo/F with a hx of left staghorn stone s/p Left URS/LL on 05/02 who was a direct transfer to [place] from [facility] due to concern of sepsis. - Afebrile and hemodynamically stable at present. - Labs reviewed - WBC 4.19, Hemoglobin 7.4, Creatinine 1.70. - Urine and blood cultures prelim no growth. On Ceftriaxone. - Voiding without issue. Continue to monitor. Bladder scan PRN. - KUB shows the left ureteral stent in appropriate position. - No acute intervention warranted. - Continue antibiotics and tailor as culture data becomes available. - Continue supportive care. - Okay to d/c from perspective when medically stable. - Pt is scheduled for the next stage of stone treatment on 05/16, will keep as scheduled for now. - Urology will sign-off. Please call with any further questions or concerns. Admission and Anticipated Discharge Date Admission Date: May 03, 2024 Subjective Pt seen at bedside this AM Awake, sitting in bedside chair on arrival No acute distress Tolerating the stent with minimal discomfort Voiding spontaneously, report some frequency Denies dysuria or hematuria Denies f/c/n/v Review of Systems Constitutional: as per Subjective / HPI Genitourinary: as per Subjective / HPI Physical Exam Constitutional: + obese; no acute distress Eyes: Legally blind Respiratory: no respiratory distress and no labored breathing Neurologic: awake Psychiatric: Orientation: alert and oriented x 3 Affect: + anxious affect Results & Data Vital Signs (Past 12 Hours) Vital Signs O2 Del Method 05/05/24 07:39 Room Air PG Care Time/CCT Total # of Minutes Spent Total Time Spent with Patient: Total time spent is greater than 50% in coordination of care (as documented) at patient's floor/unit and/or counseling patient: Coding Level of Care Code 41267 SUB INP/OBS CARE 2/35MIN Diagnoses UTI (urinary tract infection) N39.0 Staghorn calculus N20.0 Ureteral stent present Z96.0
[2024-05-05] MEDS: TAMSULOSIN HCL 0.4 MG CAP PO SCH (09:35)
--- NOTE | 2024-05-05 15:38 | Hospitalist Progress Note ---
Date of Service May 05, 2024 Assessment & Plan (1) UTI (urinary tract infection): Plan: Patient developed a fever around 0300 on 05/03 and went to [facility] ED She was transferred to [place] for possible sepsis in the setting of recent lithotripsy on 05/02 Lactate WNL at 0.7 on arrival No leukocytosis; afebrile Patient remains afebrile Hx of recurrent UTIs Most recent UCx on 03/23/2024 grew Proteus mirabilis with resistance to Cipro/levofloxacin Continue ceftriaxone 2000 mg IV q24h Follow current UA/UCx/Blood cx Daily catheter care Acetaminophen as needed for fever/pain Additional IVF with Plasma-Lyte at 100mL/hr x 2 (set to end on 05/05) Urology assistance appreciated Creatinine level increased overnight from 1.76 on 05/03 --> 1.89 on 05/04. Today 1.7. But her baseline on 04/06 was 1.79 She can likely be switched to p.o. antibiotics soon. Hold lisinopril Urology has signed off. (2) Staghorn calculus: Plan: Left-sided staghorn calculus x 1 year Patient had a procedure in [place] 1 month ago to have half of it removed She has been following with [place] urology for stage II ureteroscopy (will require 2-3 more to completely remove staghorn) KUB on 05/03 showed left ureteral stent is in place Urology did not recommend any acute intervention. Recommended continuing antibiotics (3) Iron deficiency anemia: Plan: Hgb 7.5 on 05/03 --> 8.4 on 05/04 Per review of operative note, EBL was listed as 0 cc Hx of SALLY; MCV WNL at 84.5 Clinically, no signs of active bleeding on physical exam Iron < 10 L on a.m. labs 05/04 Ferritin WNL Patient reports she has not been taking her iron prior to urologic procedure Restart ferrous sulfate 325 mg p.o. daily at 6 PM Trend a.m. CBC (4) Fall: Plan: Patient sustained a mechanical ground-level fall while ambulating with her walker on the afternoon of 05/04 No head strike; no LOC; however, patient was able to get up on her own and a code lift was called Fall precaution PT/OT recommend discharge to home with home health. (5) Type 2 diabetes mellitus: Plan: A1c 5.5% on 05/04 Hold Sitagliptin, metformin Loose SSI with target BSG range 120-160mg/dL, CF 20, carb ratio 7 T2DM diet BSG ACHS Adjust regimen as needed (6) Psychological disorder: Plan: Patient exhibits severe anxiety on arrival, and is very concerned that she is going to Continue topiramate, sertraline, buspirone (7) IBS (irritable bowel syndrome): Plan: Continue hyoscyamine QID (8) Hemorrhoids: Plan: Hydrocortisone cream as needed (9) VANDANA (obstructive sleep apnea): Plan: BiPAP HS (10) Thrombocytopenia: Plan: Mild; improved to 115 today (11) Angioma: Plan: Patient follows with [facility] Hold chemical DVT PPx (12) Legally blind: (13) Left nephrolithiasis: Plan Full code VTE PPx: Patient has been declining blood thinners; will start on SCDs Admission and Anticipated Discharge Date Admission Date: May 03, 2024 Subjective Patient has anxiety and OCD. She keeps asking if I think she is going to . Review of Systems Review of Systems: All systems reviewed & are unremarkable except as noted in Subjective Physical Exam Physical Exam: General: Awake, conversant. Morbidly obese Heart: S1, S2/regular rate and rhythm, no murmur rubs or gallops Lungs: Clear to auscultation bilaterally. Normal effort Abdomen: Soft/nontender/nondistended. No hepatosplenomegaly Extremities: No clubbing/cyanosis. No edema Behavior: Appropriate, cooperative Results & Data Results & Data Vital Signs (Past 12 Hours) Vital Signs O2 Del Method 05/05/24 07:39 Room Air Laboratory Results Abnormal lab results 05/04/24 05/04/24 05/05/24 Range/Units 17:06 20:50 06:07 WBC 4.19 L (4.8-10.8) K/ul RBC 2.92 L (4.20-5.40) M/uL Hgb 7.4 L (12.0-16.0) g/dl Hct 25.2 L (37.0-47.0) % MCHC 29.4 L (32.0-36.0) g/dL RDW Std Deviation 49.7 H (36.4-46.3) fL RDW Coeff of Eleni 15.7 H (11.5-14.5) % Plt Count 115 L (130-400) K/uL Chloride 115 H (98-107) mmol/L Carbon Dioxide 19 L (21-32) mmol/L BUN 34 H (6-23) mg/dl Creatinine 1.70 H (0.6-1.2) mg/dl Glucose 103 H (70-99(Fasting)) mg/dl POC Glucose 107 H 122 H (70-99) mg/dl Calcium 8.2 L (8.6-10.3) mg/dl 05/05/24 Range/Units 07:36 WBC (4.8-10.8) K/ul RBC (4.20-5.40) M/uL Hgb (12.0-16.0) g/dl Hct (37.0-47.0) % MCHC (32.0-36.0) g/dL RDW Std Deviation (36.4-46.3) fL RDW Coeff of Eleni (11.5-14.5) % Plt Count (130-400) K/uL Chloride (98-107) mmol/L Carbon Dioxide (21-32) mmol/L BUN (6-23) mg/dl Creatinine (0.6-1.2) mg/dl Glucose (70-99(Fasting)) mg/dl POC Glucose 100 H (70-99) mg/dl Calcium (8.6-10.3) mg/dl PG Care Time/CCT Total # of Minutes Spent Total Time Spent with Patient: Total time spent is greater than 50% in coordination of care (as documented) at patient's floor/unit and/or counseling patient: Coding Level of Care Code 24565 SUB INP/OBS CARE 235MIN Diagnoses UTI (urinary tract infection) N39.0 Staghorn calculus N20.0 Iron deficiency anemia D50.9 Fall W19.XXXA Type 2 diabetes mellitus E11.9 Psychological disorder F99 IBS (irritable bowel syndrome) K58.9 Hemorrhoids K64.9 VANDANA (obstructive sleep apnea) G47.33 Thrombocytopenia D69.6 Angioma D18.00 Legally blind H54.8 Left nephrolithiasis N20.0
[2024-05-05] MEDS: ASCORBIC ACID 500 MG TAB PO SCH (21:09)
[2024-05-05] MEDS: CLOTRIMAZOLE 1% CR 15 GM TUBE EXT SCH (21:11)
[2024-05-05] MEDS: MICONAZOLE NITRATE 2% CR 30 GM TUBE EXT SCH (21:13)
[2024-05-06 07:22] LABS: Hematocrit (blood only) 25.1 % (37.0-47.0); Hemoglobin 7.3 g/dl (12.0-16.0); Mean Corpuscular Hgb Conc 29.1 g/dL (32.0-36.0); Mean Platelet Volume 9.5 fL (9.4-12.4); Platelet Count 110 K/uL (130-400); RDW Coefficient of Variation 15.4 % (11.5-14.5); RDW Standard Deviation 48.8 fL (36.4-46.3); Red Blood Count 2.92 M/uL (4.20-5.40); White Blood Count 3.61 K/ul (4.8-10.8)
[2024-05-06 07:47] LABS: Anion Gap 7 (3-11); BUN Creatinine Ratio 18.6 (10-20); Blood Urea Nitrogen 30 mg/dl (6-23); Calcium 8.1 mg/dl (8.6-10.3); Carbon Dioxide 19 mmol/L (21-32); Chloride 116 mmol/L (98-107); Est GFR (African American) 43.1 ml/min; Est GFR (Non-African American) 37.2 ml/min; Glucose 100 mg/dl (70-99(Fasting)); Potassium 4.1 mmol/L (3.5-5.1); Sodium 142 mmol/L (136-145)
--- NOTE | 2024-05-06 12:31 | Discharge Summary ---
Date of Service May 06, 2024 Admission HPI Per Admitting Provider Desiree is a 48-year-old female with PMH of legal blindness, left-sided staghorn calculus, T2DM, IBS, GERD, OCD, recurrent UTIs, and anxiety/depression. Patient recently had a stage II ureteroscopy and lithotripsy with CT urology on 05/02 for her left-sided staghorn calculus. This calculus is not new to her. It was discovered around 1 year ago, and she had a procedure in [place] last month to have half of it removed. While the patient was initially thinking of having PCNL at [place], it was determined that it was easier for her to have 2-3 procedures done at [facility] to have a staghorn removed. After her procedure on 05/02, she reports that she developed a fever around 3 AM at home (100.7 F). She took Tylenol, which she reports helped, then she went to [facility] ED. [facility] was concern for possible sepsis due to a lactate of 2.2, and the patient was transferred to the ICU at [facility]. She appears very anxious in the room, and does endorse all symptoms associated with prior UTIs (burning with urination, dysuria, and suprapubic tenderness). She reports she has not had any of her regular morning medicine for 2 days. She does not use a BiPAP at night; no other supplemental oxygen at home. She is a former tobacco cigarette smoker; quit 6 years ago. She denies any recent alcohol use. Patient's vitals are stable at time of admission. ROS: Patient endorses fever, cold intolerance, trouble breathing (which she attributes to her anxiety/paranoia), burning with urination, dysuria, suprapubic tenderness, ongoing diarrhea, and left leg sciatica. Patient denies night sweats, dizziness/lightheadedness with movements, headache, chest pain, chest palpitations, pleuritic CP, SOB, cough, abdominal pain, nausea, or vomiting. Per discussion with rn bariatric, and urology, it is unclear why the patient was a direct admit transfer to the ICU rather than one of the [facility] telemetry floors. Admission Exam Per Admitting Provider General: no acute distress; anxious; non-toxic appearing; cooperative; morbid obesity; SpO2 100% on RA; afebrile HEENT: normocephalic, atraumatic; no scleral icterus; PERRLA; unable to assess vision; hearing grossly intact Neck: supple; no lymphadenopathy; trachea midline Skin: warm, dry without signs of tenting; no cyanosis; no rashes, bruising, lesions, or erythema noted on the extremities, abdomen, flanks, or back CV: chest wall NTP; RRR; S1/S2 normal; no murmurs/rubs/gallops; pulses intact and symmetric at radial, DP, and PT Lungs: no acute respiratory distress; symmetrical chest wall expansion; clear breath sounds across all lung jain w/o adventitious sounds; no wheezing ABD: Soft, NTP; BS present; no rebound/guarding; suboptimal exam secondary to patient's body habitus; distention secondary to body habitus; negative CVA tenderness MSK: no tics or fasciculations; no edema noted in the LEs b/l, nonerythematous Neuro: A&Ox3; normal mood and affect; fluent speech; no focal deficits; sensation grossly intact and symmetric in the LEs b/l Principal Diagnosis Acute complicated UTI with sepsis, recent left lithotripsy on 05/02 Left staghorn calculus, being followed by [facility] urology. Scheduled for next stage of stone treatment on 05/16 Mechanical fall Discharge Exam General: Awake, conversant. Morbidly obese Heart: S1, S2/regular rate and rhythm, no murmur rubs or gallops Lungs: Clear to auscultation bilaterally. Normal effort Abdomen: Soft/nontender/nondistended. No hepatosplenomegaly Extremities: No clubbing/cyanosis. No edema Behavior: Appropriate, cooperative Discharge Data Allergies Allergy/AdvReac Type Severity Reaction Status Date / Time adhesive tape Allergy Severe Verified 05/03/24 14:17 Penicillins Allergy Severe Rash Verified 05/03/24 14:17 aspirin AdvReac Severe Advised to Verified 05/03/24 14:17 avoid "due to angioma" blood thinner AdvReac Severe Advised to Uncoded 05/03/24 14:17 avoid "due to angioma" Consultations 05/03/24 12:14 Consult Urology Routine Hospital Course (1) UTI (urinary tract infection): Patient developed a fever around 0300 on 05/03 and went to [facility] She was transferred to CT for possible sepsis in the setting of recent lithotripsy on 05/02 Lactate WNL at 0.7 on arrival No leukocytosis; afebrile Patient remains afebrile Hx of recurrent UTIs Most recent UCx on 03/23/2024 grew Proteus mirabilis with resistance to Cipro/levofloxacin Patient was treated with ceftriaxone 2000 mg IV q24h All blood cultures and urine cultures were negative Acetaminophen as needed for fever/pain Patient was given IV fluids Urology assistance appreciated, did not recommend any acute intervention during this hospital stay. Recommended follow-up for next step of stone management Creatinine trending down. Urology signed off (2) Staghorn calculus: Left-sided staghorn calculus x 1 year Patient had a procedure in [place] 1 month ago to have half of it removed She has been following with CT urology for stage II ureteroscopy (will require 2-3 more to completely remove staghorn) KUB on 05/03 showed left ureteral stent is in place Urology did not recommend any acute intervention. Recommended continuing antibiotics and follow-up with urology for next stage of stone management. Patient has been advised to follow-up with urology in 2 weeks (3) Iron deficiency anemia: Hgb 7.5 on 05/03 Per review of operative note, EBL was listed as 0 cc Hx of SALLY; MCV WNL at 84.5 Clinically, no signs of active bleeding on physical exam Iron < 10 L on a.m. labs 05/04 Ferritin WNL Patient reports she has not been taking her iron prior to urologic procedure Resume ferrous sulfate Hemoglobin has been low during this hospital stay. Part of it could be due to hemodilution versus frequent blood draws. This will need to be pursued outpatient Patient is not having any GI bleed. No black or bloody stools She denies any dizziness. No hypotension. No indication for blood transfusion. This will need to be pursued outpatient by her PCP. Advised to follow-up with PCP in 1 week (4) Fall: Patient sustained a mechanical ground-level fall while ambulating with her walker on the afternoon of 05/04 No head strike; no LOC; however, patient was able to get up on her own and a code lift was called Fall precaution PT/OT recommend discharge to home with home health. PCP to arrange for home health outpatient. (5) Type 2 diabetes mellitus: A1c 5.5% on 05/04 Hold Sitagliptin, metformin Loose SSI with target BSG range 120-160mg/dL, CF 20, carb ratio 7 T2DM diet BSG ACHS Adjust regimen as needed (6) Psychological disorder: Patient exhibits severe anxiety on arrival, and is very concerned that she is going to Continue topiramate, sertraline, buspirone (7) IBS (irritable bowel syndrome): Continue hyoscyamine QID (8) Hemorrhoids: Hydrocortisone cream as needed (9) VANDANA (obstructive sleep apnea): BiPAP HS (10) Thrombocytopenia: Mild; improved (11) Angioma: Patient follows with [facility] Hold chemical DVT PPx (12) Legally blind: (13) Left nephrolithiasis: Plan Full code VTE PPx: Patient has been declining blood thinners; will start on SCDs Total Time Total Time Spent Total Time Spent (In Minutes): 35 Discharge Plan Discharge Items Patient Disposition: Home - Home Health Services Reason For Visit: SEPSIS Discharge Diagnosis: Acute complicated UTI with sepsis, recent left lithotripsy on 05/02 Left staghorn calculus, being followed by [facility] urology. Scheduled for next stage of stone treatment on 05/16 Mechanical fall Activity: Resume your previous activity Non-emergency contact: Primary Care Provider Call non-emergency contact if: you have any medication questions and your symptoms worsen Follow-up/Referrals: José Miguel Ohara [Primary Care Provider] - Diet: Heart Healthy Addtl Attending Provider Instructions: Advised to note that you were treated for a UTI with sepsis with IV antibiotics and will be discharged on oral antibiotics Advised to note that you will need to follow-up with urology, next stage of stone treatment scheduled for 05/16 Advised to follow-up with PCP in 1 week Advised to follow-up with urology in 2 weeks Pending Studies at Discharge: No Stand-Alone Forms: My [facility] Medications and DC Order Prescriptions: New cefdinir 300 mg capsule 300 mg PO BID 5 Days Qty: 10 0RF Continued famotidine [Pepcid] 20 mg tablet 20 mg PO HS albuterol sulfate [Ventolin HFA] 90 mcg/actuation HFA aerosol inhaler 2 puff inhalation Q6H PRN (Reason: sob) pantoprazole 40 mg tablet,delayed release (DR/EC) 40 mg PO BID Qty: 60 0RF solifenacin [Vesicare] 10 mg tablet 10 mg PO DAILY Qty: 30 11RF cholecalciferol (vitamin D3) 50 mcg (2,000 unit) capsule 50 mcg PO QAM Rx Instructions: Unable to verify OTC meds at this date/time cyanocobalamin (vitamin B-12) 500 mcg tablet 1,000 mcg PO QAM Rx Instructions: Unable to verify OTC meds at this date/time acetazolamide 500 mg capsule, extended release 500 mg PO BID sertraline 100 mg tablet 200 mg PO QAM topiramate 200 mg tablet 200 mg PO BID Januvia 50 mg tablet 50 mg PO HS ferrous sulfate [iron] 325 mg (65 mg iron) Tablet 325 mg PO QAM lisinopril 5 mg tablet 5 mg PO HS hyoscyamine sulfate 0.125 mg tablet 0.125 mg PO QID buspirone 30 mg tablet 30 mg PO BID ascorbic acid (vitamin C) [Vitamin C With Uyen Hips] 500 mg Tablet Extended Release 500 mg PO BID Rx Instructions: Unable to verify OTC meds at this date/time atorvastatin 10 mg tablet 10 mg PO HS hydrocortisone 2.5 % cream with perineal applicator 1 applic HI BID PRN (Reason: hemorrhoids) clindamycin phosphate 1 % lotion 1 applic topical DAILY PRN (Reason: inflammed boils) Rx Instructions: Apply to the lesions BID when inflamed. tramadol 50 mg tablet 50 mg PO Q6H PRN (Reason: pain) Qty: 20 0RF Rx Instructions: As of 05/03/24 - Pt hasn't started medication yet. tamsulosin 0.4 mg capsule 0.4 mg PO DAILY metformin 500 mg tablet extended release 24 hr 1,000 mg PO QAM nystatin 100,000 unit/gram powder 1 applic TOPICAL HS Discontinued sulfamethoxazole-trimethoprim [Bactrim DS] 800-160 mg tablet 1 tab PO BID Qty: 10 0RF Rx Instructions: As of 05/03/24 - Pt hasn't started medication yet. Discharge Orders: Discharge Order (Routine); Ordered 05/06/24 Ordered By: Rodo Ariza Admission Data Admit Date/Time: 05/03/24 11:23 Attending Provider: Rodo Ariza Admit Provider: Twan Kinsey Primary Care Provider: José Miguel Ohara Other Providers: Burt Trujillo Coding Level of Care Code 19733 INP/OBS DISCH >30 MIN Diagnoses UTI (urinary tract infection) N39.0 Staghorn calculus N20.0 Iron deficiency anemia D50.9 Fall W19.XXXA Type 2 diabetes mellitus E11.9 Psychological disorder F99 IBS (irritable bowel syndrome) K58.9 Hemorrhoids K64.9 VANDANA (obstructive sleep apnea) G47.33 Thrombocytopenia D69.6 Angioma D18.00 Legally blind H54.8 Left nephrolithiasis N20.0
--- NOTE | 2024-05-09 05:17 | Coding Query ---
CODING QUERY To promote full compliance with coding requirements relating to patient care, provider participation is requested in all cases of link and link knitting machine operator uncertainty. Please assist us with the question(s) below: Coding Question(s): Pt admittted for Sepsis. Pt had a lithotripsy at outside hospital on 05/02. Developed a postop fever at home. 05/05 note stated pt admitted for possible Sepsis in the setting of recent Lithotripsy. Please document, if known or suspected, the etiology of the Sepsis POA. Thanks for your help! Scott Colmeanres [facility] Physician's Response(s): Patient had fever, lactic acidosis and leukocytosis at outside hospital. Thus, she met sepsis criteria on admission. Known Sepsis POA Principal Diagnosis: "that condition established after study, to be chiefly responsible for occasioning the admission of the patient to the hospital for care." Co-Existing Principal Diagnosis: "when two or more diagnoses equally meet the criteria for principal diagnosis as determined by the circumstances of admission, diagnostic work up, and/or therapy provided, and the Alphabetic Index, Tabular List, or another coding guideline does not provide sequencing direction, any one of the diagnoses may be sequenced first." "When the physician has documented what appears to be a current diagnosis in the body of the record, but has not included the diagnosis in the final diagnostic statement, the physician should be asked whether the diagnosis should be added." (Source Coding Clinic 2 QTR90. p3-4) GELY
== END 2024-05-06 15:13 | disposition home or self-care (01) ==
LOC: SUATTDRO 11:23 → INTOOBSV 11:23 → 1E 11:23 → 2W 15:42 → 3E 05-04 19:42

== ENCOUNTER 2024-05-16 05:53 | Observation (INO) ==
--- NOTE | 2024-05-09 14:56 | Anesthesiology Consultation ---
Date of Service May 09, 2024 Assessment & Plan (1) Encounter for pre-operative examination: Chart Review Chart Review: Acceptable Risk for Surgery and Patient NOT seen in Pre Admission Testing *D/w (see note, Re: EKG, CBC). Infectious Disease screening: Per PAT nursing assessment on 05/09/24, No known infectious disease contacts in past 10 days or current infectious disease symptoms. No recent travel outside the country. History Surgery Operation Date: 05/16/24 08:40 Proposed Procedures p Cystoscopy, Ureteronephroscopy Retrograde Pyelogram, with Possible Ureteral Dilation, Laser Destruction or Extraction of the Stone, Insertion or Exchange of Stent Catheter Left - Burt Trujillo MD Height/Weight Height: 5 ft 4 in Weight: 188.694 kg Allergies Allergy/AdvReac Type Severity Reaction Status Date / Time adhesive tape Allergy Severe Verified 05/09/24 13:22 Penicillins Allergy Severe Rash Verified 05/09/24 13:22 aspirin AdvReac Severe Advised to Verified 05/09/24 13:22 avoid "due to angioma" blood thinner AdvReac Severe Advised to Uncoded 05/09/24 13:22 avoid "due to angioma" Medications Home Medications Medication Instructions Recorded Confirmed Last Taken cholecalciferol (vitamin D3) 50 50 mcg PO QAM 11/18/20 05/09/24 04/21/24 mcg (2,000 unit) capsule cyanocobalamin (vitamin B-12) 500 1,000 mcg PO QAM 11/18/20 05/09/24 04/21/24 mcg tablet acetazolamide 500 mg 500 mg PO BID 09/23/22 05/09/24 05/01/24 12:00 capsule,extended release sertraline 100 mg tablet 200 mg PO QAM 09/23/22 05/09/24 05/01/24 12:00 topiramate 200 mg tablet 200 mg PO BID 09/23/22 05/09/24 05/01/24 23:59 albuterol sulfate 90 mcg/actuation 2 puff inhalation Q6H PRN sob 11/04/22 05/09/24 Unknown aerosol inhaler (Ventolin HFA) famotidine 20 mg tablet (Pepcid) 20 mg PO HS 11/04/22 05/09/24 05/01/24 23:59 sitagliptin phosphate 50 mg tablet 50 mg PO HS 12/01/22 05/09/24 04/30/24 23:59 (Januvia) ferrous sulfate 325 mg (65 mg 325 mg PO QAM 04/23/23 05/09/24 04/21/24 iron) tablet (iron) lisinopril 5 mg tablet 5 mg PO HS 04/23/23 05/09/24 05/01/24 23:59 pantoprazole 40 mg tablet,delayed 40 mg PO BID #60 tabs 08/05/23 05/09/24 05/01/24 23:59 release ascorbic acid (vitamin C) 500 mg 500 mg PO BID 04/21/24 05/09/24 04/21/24 tablet,extended release (Vitamin C With Uyen Hips) atorvastatin 10 mg tablet 10 mg PO HS 04/21/24 05/09/24 04/30/24 23:59 buspirone 30 mg tablet 30 mg PO BID 04/21/24 05/09/24 05/01/24 23:59 clindamycin phosphate 1 % lotion 1 applic topical DAILY PRN 04/21/24 05/09/24 Unknown inflammed boils hydrocortisone 2.5 % topical cream 1 applic MS BID PRN hemorrhoids 04/21/24 05/09/24 05/01/24 23:59 with perineal applicator hyoscyamine sulfate 0.125 mg tablet 0.125 mg PO QID 04/21/24 05/09/24 05/01/24 23:59 solifenacin 10 mg tablet (Vesicare) 10 mg PO DAILY #30 tabs 04/25/24 05/09/24 Un known tramadol 50 mg tablet 50 mg PO Q6H PRN pain #20 tabs 05/02/24 05/09/24 Unknown metformin 500 mg tablet,extended 1,000 mg PO QAM 05/03/24 05/09/24 Unknown release 24 hr cefdinir 300 mg capsule 300 mg PO BID 5 days #10 caps 05/06/24 05/09/24 Unknown Past Medical History Medical History (Updated 05/09/24 @ 15:33 by Jerrica Pfeiffer PA-C) Angioma brain angioma -- follows with [facility] neurology Anxiety severe Arthritis Asthma well controlled Chronic sinusitis Depression Diabetes mellitus, type 2 NIDDM GERD (gastroesophageal reflux disease) Hemorrhoids occasional bleeding History of recent fall 05/04/24, while amb w/ walker while inpt at [facility]. no loc, no head strike History of recurrent UTI (urinary tract infection) Hx of necrotizing fasciitis (2017) unknown cause. IBS (irritable bowel syndrome) Iron deficiency anemia monitored during inpt admission 04/2024. Iron was low; pt had been off of iron supplement and it was resumed. No signs of GI bleed. Per D/C summary: "She denies any dizziness. No hypotension. No indication for blood transfusion. This will need to be pursued outpatient by her PCP. Advised to follow-up with PCP in 1 week" Left nephrolithiasis Legally blind Morbid obesity with BMI of 70 and over, adult OCD (obsessive compulsive disorder) severe Orthopnea VANDANA (obstructive sleep apnea) Bipap at night; not using, being fixed currently Osteoarthritis Overactive bladder Pseudotumor cerebri follows with [facility] Neurology Staghorn calculus current - left side (had procedure 03/2024 in [place] and 04/2024 [facility] for this) Thrombocytopenia Thrombocytopenia dx during 04/2024 admission [facility]; mild; monitoring Ureteral stent present UTI (urinary tract infection) pt admitted [facility] 05/03/24 (POD1 from cysto, litho procedure) for UTI with possible sepsis. D/C on 05/06/24. currently on Cefdinir Past Family History Family History Other Bladder cancer No family history of adverse response to anesthesia Past Surgical History Surgical History (Updated 05/09/24 @ 14:41 by Jerrica Pfeiffer PA-C) History of x2 History of cholecystectomy History of colonoscopy History of cystoscopy multiple cystoscopy and lithotripsy procedures. most recent: cysto, laser litho, L stent 05/02/24 [facility]: GA: Glidescope#3, ETT#7.0 oral, Gr View 1 History of open reduction and internal fixation (ORIF) procedure LLE History of surgery (2017) RLE x 7 surgeries r/t necrotizing fasciitis History of tonsillectomy Social History Smoking Status: Former smoker Do You Dip or Chew Tobacco: No Smoking End Date: quit 2017 Hx Alcohol Use: No Hx Substance Use: No substance use type: does not use Lab Results Anesthesia Preop Results Results Anesthesia Widget: WBC 3.61 K/ul (4.8-10.8) L 05/06/24 Hgb 7.3 g/dl (12.0-16.0) L 05/06/24 Hct 25.1 % (37.0-47.0) L 05/06/24 Plt 110 K/uL (130-400) L 05/06/24 Na 142 mmol/L (136-145) 05/06/24 K 4.1 mmol/L (3.5-5.1) 05/06/24 Cl 116 mmol/L (98-107) H 05/06/24 CO2 19 mmol/L (21-32) L 05/06/24 BUN 30 mg/dl (6-23) H 05/06/24 Creat 1.61 mg/dl (0.6-1.2) H 05/06/24 Glucose Level 100 mg/dl (70-99(Fasting)) H 05/06/24 POC Glucose 125 mg/dl (70-99) H 05/06/24 PT 12.4 seconds (9-12) H 04/06/24 INR 1.09 (0.9-1.1) 04/06/24 HA1c 5.5 % (4.5-5.6) 05/04/24 POC Ur Test NEG (NEG) 05/02/24 Urine Color [facility] 05/03/24 Urine Appearance Turbid (Clear) A 05/03/24 Urine pH 6.0 (4.5-7.5) 05/03/24 Urine Specific [place] 1.017 (1.000-1.030) 05/03/24 Urine Protein 3+ (Negative) H 05/03/24 Urine Glucose (UA) Negative (Negative) 05/03/24 Urine Ketones Negative (Negative) 05/03/24 Urine Blood 3+ (Negative) H 05/03/24 Urine Nitrite Negative (Negative) 05/03/24 Urine Bilirubin Negative (Negative) 05/03/24 Urine Urobilinogen Negative (Negative) 05/03/24 Urine Leukocyte Esterase 3+ (Negative) H 05/03/24 Urine WBC (Auto) >50 /hpf (0-5) H 05/03/24 Urine RBC (Auto) >20 /hpf (0-2) H 05/03/24 Urine Hyaline Casts (Auto) 3-5 /lpf (0-2) H 05/03/24 Urine Epithelial Cells (Auto) 11-20 /hpf (0-2) H 05/03/24 Urine Bacteria (Auto) 2+ (None Seen) H 05/03/24 Urine Yeast Present (None Prsent) A 05/03/24 Testing Laboratory Results *D/w Dr. Cantu, Re: pt's anemia. (See notation Re: Iron Deficiency anemia; pt's 04/2024 hospitalization). CBC and BMP will be repeated AM of surgery. Electrocardiogram Date: 05/03/24 Findings: + NSR @ (99bpm) LA enlargement. ST depression in anterior leads. (EKG reviewed with . EKG was done during pt inpt stay. Pt asympto matic. ST depression in V3 likely 2/2 body habitus. Will repeat AM of surgery)
[2024-05-16] MEDS ORDERED: ONDANSETRON INJ 2 MG/ML 2 ML VIAL IV PRN (06:31)
[2024-05-16] MEDS ORDERED: ATROPINE SULFATE 0.1 MG/ML 10ML SYR IV PRN (06:31)
[2024-05-16] MEDS ORDERED: ePHEDrine sulfate 50 MG/ML AMP IV PRN (06:31)
[2024-05-16] MEDS ORDERED: fentaNYL citrate PF 100 MCG/2 ML VIAL IV PRN (06:31)
[2024-05-16 06:38] LABS: Basophils # (auto) 0.05 K/uL (0.00-0.20); Basophils % (auto) 0.7 %; Eosinophils # (auto) 0.11 K/uL (0.00-0.50); Eosinophils % (auto) 1.6 %; Hematocrit (blood only) 30.8 % (37.0-47.0); Hemoglobin 9.2 g/dl (12.0-16.0); Immature Granulocytes # (auto) 0.04 K/uL (0.01-0.20); Immature Granulocytes % (auto) 0.6 %; Lymphocytes # (auto) 1.06 K/uL (1.20-3.40); Mean Corpuscular Hemoglobin 25.6 pg (25.0-34.0); Mean Corpuscular Hgb Conc 29.9 g/dL (32.0-36.0); Mean Corpuscular Volume 85.8 fL (80.0-100.0); Mean Platelet Volume 9.4 fL (9.4-12.4); Monocytes # (auto) 0.58 K/uL (0.11-0.59); Monocytes % (auto) 8.2 %; Neutrophils # (auto) 5.22 K/uL (1.40-6.50); Neutrophils % (auto) 73.9 %; Platelet Count 189 K/uL (130-400); RDW Coefficient of Variation 15.8 % (11.5-14.5); RDW Standard Deviation 49.6 fL (36.4-46.3); Red Blood Count 3.59 M/uL (4.20-5.40); White Blood Count 7.06 K/ul (4.8-10.8)
[2024-05-16] MEDS ORDERED: ONDANSETRON INJ 2 MG/ML 2 ML VIAL ONE (06:43)
[2024-05-16] MEDS ORDERED: DEXAMETHASONE SOD INJ 4 MG/ML VIAL ONE (06:43)
[2024-05-16] MEDS ORDERED: LIDOCAINE 2% 2 ML VIAL/AMP(20MG/ML) INFIL ONE (06:43)
[2024-05-16] MEDS ORDERED: SUCCINYLCHOLINE CHLORIDE 20 MG/ML 10 ML VIAL IV ONE (06:43)
[2024-05-16] MEDS ORDERED: PROPOFOL IV EMULSION 10 MG/ML 20 ML VIAL IV ONE (06:43)
[2024-05-16] MEDS ORDERED: ROCURONIUM BROMIDE 10 MG/ML 5 ML VIAL IV ONE (06:43)
[2024-05-16] MEDS ORDERED: fentaNYL citrate PF 100 MCG/2 ML VIAL ONE (06:44)
[2024-05-16] MEDS ORDERED: DexMEDEtomidine HCL IV 100 MCG/ML VIAL IV ONE (06:44)
[2024-05-16] MEDS: LR 15ML/HR IV SCH (06:48)
[2024-05-16 06:50] LABS: BUN Creatinine Ratio 17.2 (10-20); Calcium 8.3 mg/dl (8.6-10.3); Creatinine Clr Calc Pharmacy 56.1 ml/min; Est GFR (African American) 32.4 ml/min; Est GFR (Non-African American) 27.9 ml/min; Potassium 4.3 mmol/L (3.5-5.1)
--- NOTE | 2024-05-16 07:27 | History & Physical Report ---
Date of Service May 16, 2024 Assessment & Plan (1) Staghorn calculus: Plan: Extremely large left staghorn calculus Undergoing staged ureteroscopy and laser lithotripsy Returns today for the next age Risks, benefits, expectations reviewed History of Present Illness Primary Care Provider: José Miguel Ohara Returns for the next stage of her multistage left ureteroscopy laser lithotripsy for a large staghorn calculus Allergies Allergy/AdvReac Type Severity Reaction Status Date / Time adhesive tape Allergy Severe Redness of Verified 05/16/24 06:20 Skin Penicillins Allergy Severe Rash Verified 05/16/24 06:20 aspirin AdvReac Severe Advised to Verified 05/16/24 06:20 avoid "due to angioma" blood thinner AdvReac Severe Advised to Uncoded 05/16/24 06:20 avoid "due to angioma" Home Medications Medication Instructions Recorded Confirmed Type cholecalciferol (vitamin D3) 50 50 mcg PO QAM 11/18/20 05/16/24 History mcg (2,000 unit) capsule cyanocobalamin (vitamin B-12) 500 1,000 mcg PO QAM 11/18/20 05/16/24 History mcg tablet acetazolamide 500 mg 500 mg PO BID 09/23/22 05/16/24 History capsule,extended release sertraline 100 mg tablet 200 mg PO QAM 09/23/22 05/16/24 History topiramate 200 mg tablet 200 mg PO BID 09/23/22 05/16/24 History albuterol sulfate 90 mcg/actuation 2 puff inhalation Q6H PRN sob 11/04/22 05/09/24 History aerosol inhaler (Ventolin HFA) famotidine 20 mg tablet (Pepcid) 20 mg PO HS 11/04/22 05/16/24 History sitagliptin phosphate 50 mg tablet 50 mg PO HS 12/01/22 05/16/24 History (Januvia) ferrous sulfate 325 mg (65 mg 325 mg PO QAM 04/23/23 05/16/24 History iron) tablet (iron) lisinopril 5 mg tablet 5 mg PO HS 04/23/23 05/16/24 History pantoprazole 40 mg tablet,delayed 40 mg PO BID #60 tabs 08/05/23 05/16/24 Rx release ascorbic acid (vitamin C) 500 mg 500 mg PO BID 04/21/24 05/16/24 History tablet,extended release (Vitamin C With Uyen Hips) atorvastatin 10 mg tablet 10 mg PO HS 04/21/24 05/16/24 History buspirone 30 mg tablet 30 mg PO BID 04/21/24 05/16/24 History clindamycin phosphate 1 % lotion 1 applic topical DAILY PRN 04/21/24 05/16/24 History inflammed boils hydrocortisone 2.5 % topical cream 1 applic MT BID PRN hemorrhoids 04/21/24 05/16/24 History with perineal applicator hyoscyamine sulfate 0.125 mg tablet 0.125 mg PO QID 04/21/24 05/16/24 History solifenacin 10 mg tablet (Vesicare) 10 mg PO DAILY #30 tabs 04/25/24 05/16/24 Rx tramadol 50 mg tablet 50 mg PO Q6H PRN pain #20 tabs 05/02/24 05/09/24 Rx metformin 500 mg tablet,extended 1,000 mg PO QAM 05/03/24 05/16/24 History release 24 hr Past Med/Surg History Problem List Fall Thrombocytopenia Anemia Ureteral stent present UTI (urinary tract infection) Hemorrhoids occasional bleeding Staghorn calculus Left nephrolithiasis Nausea Diarrhea Encounter for pre-operative examination 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 Iron deficiency anemia Hemorrhoids Heme positive stool GERD (gastroesophageal reflux disease) IBS (irritable bowel syndrome) Type 2 diabetes mellitus Cellulitis Legally blind VANDANA (obstructive sleep apnea) BiPAP UTI symptoms Obsessive compulsive disorder Anxiety and depression Frequency of micturition Urgency of urination Arthritis (Acute) Asthma (Acute) Psychological disorder (Acute) Sensation of pressure in bladder area (Acute) History of recurrent UTIs Medical History Thrombocytopenia dx during 04/2024 admission [facility]; mild; monitoring UTI (urinary tract infection) pt admitted [facility] 05/03/24 (POD1 from cysto, litho procedure) for UTI with possible sepsis. D/C on 05/06/24. currently on Cefdinir History of recent fall 05/04/24, while amb w/ walker while inpt at [facility]. no loc, no head strike Arthritis Left nephrolithiasis Hemorrhoids occasional bleeding Ureteral stent present Thrombocytopenia Iron deficiency anemia monitored during inpt admission 04/2024. Iron was low; pt had been off of iron supplement and it was resumed. No signs of GI bleed. Per D/C summary: "She denies any dizziness. No hypotension. No indication for blood transfusion. This will need to be pursued outpatient by her PCP. Advised to follow-up with PCP in 1 week" 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 Osteoarthritis Diabetes mellitus, type 2 NIDDM Chronic sinusitis Staghorn calculus current - left side (had procedure 03/2024 in [place] and 04/2024 [facility] for this) History of recurrent UTI (urinary tract infection) Legally blind VANDANA (obstructive sleep apnea) Bipap at night; not using, being fixed currently Hx of necrotizing fasciitis (2017) unknown cause. IBS (irritable bowel syndrome) GERD (gastroesophageal reflux disease) Pseudotumor cerebri follows with [facility] Neurology Orthopnea Overactive bladder Anxiety severe Depression OCD (obsessive compulsive disorder) severe Morbid obesity with BMI of 70 and over, adult Asthma well controlled Surgical History History of cystoscopy multiple cystoscopy and lithotripsy procedures. most recent: cysto, laser litho, L stent 05/02/24 [facility]: GA: Glidescope#3, ETT#7.0 oral, Gr View 1 History of colonoscopy History of open reduction and internal fixation (ORIF) procedure LLE History of tonsillectomy History of x2 History of cholecystectomy History of surgery (2017) RLE x 7 surgeries r/t necrotizing fasciitis Family History Other Bladder cancer No family history of adverse response to anesthesia Social History Smoking Status: Former smoker Tobacco Type: Cigarettes Smoking End Date: quit 2017; Second Hand Exposure: No; Do You Dip or Chew Tobacco: No; Tobacco Cessation Education Requested by Patient: No Hx Alcohol Use: No Hx Substance Use: No Preferred Language: Syriac Communication Ability: Effective Communication Ability Comment: pt is legally blind. does not read braille Visual Impairment: Blindness Designer Writer Required: No Beliefs That Will Affect Care: None Current Living Situation: Family and Significant Other Current Living Situation Comment: son and boyfriend Other Information That Helps Us Care for You: No Feels Safe at Home: Yes Safety Concerns: Feels Safe At This Time Assistive Devices: BiPap and Walker Physical Exam Physical Exam: Obese Constitutional: well developed and well nourished Neck: neck nontender Respiratory: normal respiratory effort; no respiratory distress and does not use accessory muscles Cardiovascular: Rate/Rhythm: regular rate Vessels: radial pulses present Extremities: no edema Gastrointestinal (Abdomen): Inspection/Auscultation: abdomen normal to inspection Percussion/Palpation: abdomen soft; abdomen nontender and no guarding Musculoskeletal: Head/Neck/Chest: normocephalic and head atraumatic Extremities: extremities normal to inspection Skin: no rashes and no lesions Trauma: no evidence of skin trauma Neurologic: awake; not obtunded Speech / Cognition: normal speech Motor/Sensory: no tremor Psychiatric: Orientation: alert and oriented x 3 Lymphatic: no lymphadenopathy Results & Data Vital Signs (Past 12 Hours) Vital Signs O2 Del Method 05/16/24 06:34 BiPAP
[2024-05-16] MEDS: MEROPENEM 1,000 MG in SYRINGE 0 ML IV ONE (07:40)
[2024-05-16] MEDS ORDERED: SUGAMMADEX SODIUM 200 MG/2 ML VIAL IV ONE (09:05)
[2024-05-16] MEDS: DIATRIZOATE MEGLUMINE 30% 100ML VIAL INSTIL ONE (09:18)
--- NOTE | 2024-05-16 09:30 | Operative Report ---
PG Post Operative Report Pre & Post Diagnosis Operation Date: 05/16/24 07:30 Pre-Op Diagnosis: Calculus Kidney Post-Op Diagnosis: Calculus Kidney I identified the patient and participated in the time-out.: Yes Procedure Operation Date: 05/16/24 07:30 Actual Procedures p Cystoscopy, Ureteronephroscopy, Retrograde Pyelogram, Laser Lithotripsy, Exchange of Stent Catheter Left(Right) - Burt Trujillo MD Surgeon Burt Trujillo MD Banquet Manager none Estimated Blood Loss 0 Findings Consistent with Post-Op Diagnosis Specimens none Description of Procedure The patient was identified in the preoperative holding area, appropriate informed consents were reviewed and completed and the patient was transferred to the operative suite. Upon arrival, appropriate antibiotics and anesthesia were administered and the patient was placed in dorsal lithotomy position and prepped and draped in sterile fashion. To begin the case I passed a 21 Maltese cystoscope with 30 degree lens. Inspection of her bladder was unremarkable. There was some debris and stone within the bladder and I irrigated this out of the bladder. The stent was in appropriate position and protruding from the left orifice. The distal aspect of the stent was grasped and withdrawn to the meatus. I was able to intubate it with a sensor wire and then utilizing a 10 Maltese double-lumen catheter introduced a second wire into the kidney. I did opacify the collecting system before placing a second wire. This showed that the upper pole of the kidney had been largely cleared of stone debris. There was still stone within the upper mid pole and the main mid pole as well as a substantial amount of stone in the lower pole. I placed a ureteral access sheath to the proximal ureter and then advanced a flexible ureteroscope utilizing a single use disposable scope. I chose a 200 m laser fiber and I began fragmenting the stone within the renal pelvis followed by inspection of the upper pole which revealed a relatively clear and healthy calyx. The lower portion of this upper pole or upper portion of the midpole had some stone remaining within it. I fragmented all of the free-floating pieces and then there was a shell of stone around the lateral border of the calyx. I was able to fragment this entirely. After feeling that that area was cleared and moved down 1 level and begin working through the lower portion of the mid pole. This was not 1 large stone but numerous smaller stones, all of which were too large to pass. I was able to fragment most of these into smaller pieces and I was able to inspect the whole calyx and saw no large fragments. At that time I decided to try to work my way into the extreme lower pole. There was a stone wedged into the infundibulum of the lower pole and I was able to gradually work my way through this stone. As a navigated through it and into the lower pole there were numerous moderate to large size fragments within the lower pole. I work my way through all of these attempting to fragment them all to the best of my ability. I saw no other large stones remaining at that time. She has a huge amount of stone debris filed within her kidney. I performed a careful exit ureteroscopy and saw clear and healthy appearing ureter. I placed a 7 Maltese by 24 cm stent with good curl in the kidney as well as the bladder. I will anticipate at least 1 additional procedure to confirm that the largest fragments have been cleared. Given her substantial amount of stone debris there is a possibility she could require 1 more procedure after that. What ever the case, she did extremely well today we made a lot of progress. I attest to the content of the Intraoperative Record and any orders documented therein. Any exceptions are noted below.
--- NOTE | 2024-05-16 09:38 | Fluoroscopy Report ---
FL retrograde includes kub CLINICAL HISTORY: Left retrograde COMPARISON STUDY: None. FLUOROSCOPY TIME: 28 seconds FLUOROSCOPY IMAGES: 1 Ka,r: 19.7 mGy FINDINGS: Retrograde opacification of the left renal collecting system with placement of a left urete ral stent. Only the proximal portion of the stent is identified and appears in good position. IMPRESSION: Fluoroscopic assistance as above. ACT 112: Negative or not required by law. Electronically signed by: Asad Forrester M.D. 05/16/2024 9:37 AM
--- NOTE | 2024-05-16 10:11 | Anesthesiology Progress Note ---
Date of Service May 16, 2024 Anesthesia Post Procedure Vital Signs Vital Signs: Temp Pulse Resp BP Pulse Ox O2 Del Method O2 Flow Rate 05/16/24 09:50 98 H 20 103/56 L 100 Oxymask 4 05/16/24 09:40 95 H 20 98/53 L 100 Oxymask 4 05/16/24 09:30 98 H 22 101/73 98 Oxymask 6 05/16/24 09:22 36 C L 100 H 23 104/57 L 98 Oxymask 6 05/16/24 06:34 BiPAP Pain Intensity Left Hip: Pain Intensity: 6 Transfer of Care Handoff Completed per policy Notes Mental Status: alert / awake / arousable Patient Amnestic to Procedure: Yes Nausea / Vomiting: adequately controlled Pain: adequately controlled Airway Patency, RR, SpO2: stable & adequate BP & HR: stable & adequate Hydration State: stable & adequate Anesthetic Complications: no major complications apparent and Pt Satisfied with anesthetic care
--- NOTE | 2024-05-16 10:48 | Electrocardiogram Report ---
Test Reason : Blood Pressure : / mmHG Vent. Rate : 081 BPM Atrial Rate : 081 BPM P-R Int : 164 ms QRS Dur : 102 ms QT Int : 396 ms P-R-T Axes : 060 046 026 degrees QTc Int : 460 ms Poor data quality, interpretation may be adversely affected Normal sinus rhythm Normal ECG When compared with ECG of 03-MAY-2024 14:38, QT has shortened Confirmed by Burt Mercado ([id number]) on 05/16/2024 10:48:23 AM Referred By: Lauro Trujillo Confirmed By:Lauro Mercado
[2024-05-16] MEDS ORDERED: traMADol HCL 50 MG TABLET PO PRN (11:17)
[2024-05-16] MEDS ORDERED: PHARMACY GLYCEMIC MGMT CONSULT PRN (11:17)
[2024-05-16] MEDS ORDERED: GENTAMICIN SULFATE 80 MG in DEXTROSE 5% 100 ML IV SCH (11:17)
[2024-05-16] MEDS ORDERED: ALBUTEROL HFA 8 GM INHALER INH PRN (11:17)
[2024-05-16] MEDS ORDERED: GENTAMICIN CONSULT ACTIVE PRN (11:17)
[2024-05-16] MEDS ORDERED: PHENAZOPYRIDINE HCL 200 MG TAB PO PRN (11:17)
[2024-05-16] MEDS ORDERED: GLUCOSE 10 TAB/TUBE PO PRN (12:00)
[2024-05-16] MEDS ORDERED: CARBOHYDRATES FOR HYPOGLYCEMIA PO PRN (12:00)
[2024-05-16] MEDS ORDERED: GLUCOSE 40% GEL 15 GM TUBE PO PRN (12:00)
[2024-05-16] MEDS ORDERED: GLUCAGON FOR INJ 1 MG VIAL IM PRN (12:00)
[2024-05-16] MEDS ORDERED: DEXTROSE 50% 50 ML SYRINGE IV PRN (12:00)
[2024-05-16] MEDS: ACETAMINOPHEN 1,000 MG/100 ML VIAL IV STA (12:37)
[2024-05-16] MEDS: cefTRIAXone SODIUM 2,000 MG/50 ML BAG IV SCH (13:04)
[2024-05-16] MEDS: HYOSCYAMINE SULFATE 0.125 MG TAB PO SCH ×2 (13:12→18:31)
[2024-05-16] MEDS ORDERED: FERROUS SULFATE 325 MG TAB PO SCH (13:15)
[2024-05-16] MEDS: INSULIN ASPART PER UNIT CHARGE SC SCH (13:19)
[2024-05-16] MEDS: SODIUM CHLORIDE 0.9% 1,000 ML IV SCH (13:40)
--- NOTE | 2024-05-16 14:05 | Pharmacy Report ---
Pharmacy Glycemic Short Note 2 - Date of Service May 16, 2024 - Glycemic Short BSG Results (Last 24 hours): 05/16/24 05/16/24 05/16/24 06:17 09:24 12:22 Glucose 107 H POC Glucose 109 H 141 H 127 H OUTPATIENT ANTIDIABETIC REGIMEN: * Metformin 1000 mg ER qam * A1c = 5.5 % (05/04/24) ASSESSMENT: * Desiree is a T2DM s/p staged ureteroscopy and laser lithotripsy for large left staghorn calculus * She is well controlled on metformin as an outpatient. Will hold this for now. * During hospital admission April 2024, patient required only 3 units of bolus insulin with BSGs ranging from 94 to 140 mg/dL. She refused insulin on multiple occasions. * Dexamethasone 4 mg IV was pulled in the OR. Unclear if patient received this. BSG decreased from 141 to 127 mg/dL without administration of insulin so I assume steroids were not administered. Will start conservative bolus insulin. PLAN FOR INPATIENT GLYCEMIC CONTROL: * Hold outpatient oral diabetes medications * Basal insulin * none * Bolus insulin * NovoLog per scale ACHS or Q6hrs while NPO * Goal Range: Low 110 mg/dL - High 140 mg/dL * Correction Factor: 20 mg/dL/unit * Nutritional / Prandial insulin per carb ratio of 1 unit per 10 grams CHO consumed
[2024-05-16] MEDS: SODIUM CHLORIDE 0.9% 500 ML IV SCH (14:44)
[2024-05-16] MEDS ORDERED: Nursing to Pharmacy Communication SCH (15:00)
[2024-05-16] MEDS: TAMSULOSIN HCL 0.4 MG CAP PO ONE (16:31)
[2024-05-16] MEDS: FERROUS SULFATE 325 MG TAB PO SCH (16:58)
[2024-05-16] MEDS: ACETAMINOPHEN 325 MG TAB PO PRN (19:09)
[2024-05-16] MEDS: TOPIRAMATE 100 MG TAB PO SCH (21:45)
[2024-05-16] MEDS: acetaZOLAMIDE 500 MG CAPCR PO SCH (21:45)
[2024-05-16] MEDS: PANTOprazole 40 MG TAB PO SCH (21:46)
[2024-05-16] MEDS: FAMOTIDINE 20 MG TAB PO SCH (21:46)
[2024-05-16] MEDS: lisinopril 5 MG TAB PO SCH (21:46)
[2024-05-16] MEDS: ATORVASTATIN 10 MG TAB PO SCH (21:47)
[2024-05-16] MEDS: busPIRone 15 MG TAB PO SCH (21:47)
[2024-05-16] MEDS: TAMSULOSIN HCL 0.4 MG CAP PO SCH (22:03)
[2024-05-17 07:36] LABS: Calcium 7.3 mg/dl (8.6-10.3); Creatinine Clr Calc Pharmacy 53.5 ml/min; Est GFR (African American) 30.5 ml/min; Est GFR (Non-African American) 26.3 ml/min; Potassium 4.2 mmol/L (3.5-5.1)
[2024-05-17 08:24] LABS: Hematocrit (blood only) 22.2 % (37.0-47.0); Hemoglobin 6.5 g/dl (12.0-16.0); Mean Corpuscular Hgb Conc 29.3 g/dL (32.0-36.0); Mean Corpuscular Volume 85.4 fL (80.0-100.0); Mean Platelet Volume 9.3 fL (9.4-12.4); Platelet Count 103 K/uL (130-400); RDW Coefficient of Variation 15.9 % (11.5-14.5); RDW Standard Deviation 49.6 fL (36.4-46.3); White Blood Count 3.31 K/ul (4.8-10.8)
[2024-05-17] MEDS: CHOLECALCIFEROL 25 MCG (1000 UNITS) TAB PO SCH (09:11)
[2024-05-17] MEDS: OXYBUTYNIN CHLORIDE XL 5 MG TABCR PO SCH (09:12)
[2024-05-17] MEDS: SERTRALINE HCL 100 MG TABLET PO SCH (09:12)
--- NOTE | 2024-05-17 09:54 | Pharmacy Report ---
Pharmacy Glycemic Sign Off Nt - Date of Service May 17, 2024 - Assessment & Plan ASSESSMENT: * Pharmacy consulted for glycemic management. * Patient refused insulin x2 yesterday, with the 3rd check not requiring insulin. Refused insulin on previous admission as well. * Despite that, BSG's have been good, ranging 100-127 mg/dL yesterday. * Novolog regimen is currently very loose - no carb coverage ordered, with loose correction factor. Patient will only have insulin indicated if BSG's rise above 140 mg/dL. * Pharmacy will sign off glycemic management at this time - Bryant'norman Trujillo r/e above and sign-off, message read. PLAN FOR INPATIENT GLYCEMIC CONTROL: No changes needed to current regimen. * No basal insulin * Continue NovoLog per scale ACHS/Q6hrs while NPO * Goal range = 110 140 mg/dl * CF = 20 mg/dl/unit * Pharmacy is signing off of glycemic consult and will no longer be making adjustments to inpatient regimen. Please feel free to re-consult if needed. Thank you.
[2024-05-17 12:57] LABS: Hematocrit (blood only) 25.7 % (37.0-47.0); Hemoglobin 7.5 g/dl (12.0-16.0)
[2024-05-17] MEDS ORDERED: MENTHOL-ZINC OXIDE 360 APPLN/120 GM TUBE EXT SCH (16:15)
--- NOTE | 2024-05-17 16:38 | Urology Progress Note ---
Date of Service May 17, 2024 Assessment & Plan (1) Ureteral stent present: (2) Staghorn calculus: Plan - POD #1 s/p Cystoscopy, Ureteronephroscopy, Retrograde Pyelogram, Laser Lithotripsy, Exchange of Left Stent Catheter - Admitted to urology service postoperatively. - Afebrile at present (Febrile overnight - Tmax 38C). Mildly hypotensive otherwise stable vitals. - Labs reviewed - WBC 3.31, Hemoglobin 6.5, Creatinine 2.14. - Voiding spontaneously. - Continues on Ceftriaxone. - Will repeat H&H now. - Continue supportive care and antibiotic therapy. - Will reassess after repeat labs. - Pt reassessed - Afebrile, mildly hypotensive otherwise stable vitals - Repeat Hgb 7.5, Hct 25.7 - Will continue to trend labs - Continue supportive care and antibiotic therapy - Will reassess in the morning, possible d/c home tomorrow pending patient progression Plan reviewed with Dr. Trujillo. Admission and Anticipated Discharge Date Admission Date: May 16, 2024 Subjective Patient seen at bedside this AM Awake, sitting in bedside chair on arrival No acute distress Febrile overnight No reported pain at present Reports some pressure with voiding Denies dysuria Denies f/c/n/v at present Denies chest pain, dizziness, lightheadedness Review of Systems Constitutional: as per Subjective / HPI Gastrointestinal: as per Subjective / HPI Genitourinary: as per Subjective / HPI Physical Exam Constitutional: + obese; no acute distress Eyes: Legally blind Respiratory: no respiratory distress and no labored breathing Skin: Warm and dry Neurologic: moves all extremities and awake Psychiatric: Orientation: alert and oriented x 3 Affect: + anxious affect and + tearful affect Results & Data Vital Signs (Past 12 Hours) Vital Signs Temp Pulse Resp BP BP Pulse Ox O2 Del Method 05/17/24 10:11 100/56 L 84/43 L 05/17/24 09:55 37.4 C 90 18 82/49 L 95 Room Air 05/17/24 07:32 Room Air 05/17/24 05:37 36.8 C 96 H 18 92/56 L 99 Room Air PG Care Time/CCT Total # of Minutes Spent Total Time Spent with Patient: Total time spent is greater than 50% in coordination of care (as documented) at patient's floor/unit and/or counseling patient: Coding Level of Care Code 12585 SUB INP/OBS CARE 35MIN Diagnoses Ureteral stent present Z96.0 Staghorn calculus N20.0
[2024-05-17] MEDS: ASCORBIC ACID 500 MG TAB PO SCH (18:12)
[2024-05-18 06:29] LABS: Calcium 7.8 mg/dl (8.6-10.3); Creatinine Clr Calc Pharmacy 58.4 ml/min; Est GFR (Non-African American) 29.3 ml/min; Potassium 4.2 mmol/L (3.5-5.1)
[2024-05-18 06:42] LABS: Hematocrit (blood only) 24.1 % (37.0-47.0); Mean Corpuscular Hemoglobin 25.1 pg (25.0-34.0); Mean Corpuscular Volume 86.4 fL (80.0-100.0); Mean Platelet Volume 9.1 fL (9.4-12.4); Platelet Count 105 K/uL (130-400); RDW Coefficient of Variation 15.9 % (11.5-14.5); RDW Standard Deviation 51.3 fL (36.4-46.3); Red Blood Count 2.79 M/uL (4.20-5.40); White Blood Count 2.92 K/ul (4.8-10.8)
--- NOTE | 2024-05-18 07:52 | Urology Progress Note ---
Date of Service May 18, 2024 Assessment & Plan (1) Ureteral stent present: (2) Staghorn calculus: Plan - POD #2 s/p Cystoscopy, Ureteronephroscopy, Retrograde Pyelogram, Laser Lithotripsy, Exchange of Left Stent Catheter - Admitted to urology service postoperatively - Tolerating the stent with minimal bother - Afebrile, normotensive. - Labs today - WBC 2.92, Hemoglobin 7.0, Creatinine 1.96. - Voiding spontaneously Plan: - D/C IV Fluids - Repeat H&H - Continue home medications - Continue SCDs Update- - Repeat Hgb 7.0-6.7-6.6. - Hospital medicine consulted d/t anemia, medical management - appreciate assistance - Continue to trend labs - Continue supportive care and antibiotic therapy - Encourage ambulation - Will reassess in the AM, possible discharge home tomorrow pending patient progression Admission and Anticipated Discharge Date Admission Date: May 16, 2024 Subjective Patient seen at bedside today Awake, sitting in bedside chair on arrival No acute distress Reports some pressure with voiding Denies dysuria Denies f/c/n/v at present Denies chest pain, dizziness, lightheadedness Review of Systems Constitutional: as per Subjective / HPI Genitourinary: as per Subjective / HPI Physical Exam Constitutional: + obese; no acute distress Eyes: Legally blind Respiratory: no respiratory distress and no labored breathing Skin: Warm and dry Neurologic: moves all extremities and awake Psychiatric: Orientation: alert and oriented x 3 Affect: + anxious affect Results & Data Vital Signs (Past 12 Hours) Vital Signs Temp Pulse Resp BP Pulse Ox O2 Del Method 05/18/24 07:06 36.7 C 78 16 100/64 97 Room Air 05/17/24 20:30 36.9 C 85 18 110/62 97 Room Air PG Care Time/CCT Total # of Minutes Spent Total Time Spent with Patient: Total time spent is greater than 50% in coordination of care (as documented) at patient's floor/unit and/or counseling patient: Coding Level of Care Code 38362 SUB INP/OBS CARE 2/35MIN Diagnoses Ureteral stent present Z96.0 Staghorn calculus N20.0
[2024-05-18] MEDS: CYANOCOBALAMIN (B-12) 500 MCG TABLET PO SCH (09:09)
[2024-05-18 12:00] LABS: Hematocrit (blood only) 23.3 % (37.0-47.0); Hemoglobin 6.7 g/dl (12.0-16.0); Mean Corpuscular Hemoglobin 24.8 pg (25.0-34.0); Mean Corpuscular Hgb Conc 28.8 g/dL (32.0-36.0); Mean Corpuscular Volume 86.3 fL (80.0-100.0); Mean Platelet Volume 9.6 fL (9.4-12.4); Platelet Count 110 K/uL (130-400); RDW Standard Deviation 50.9 fL (36.4-46.3)
[2024-05-18 13:34] LABS: Hematocrit (blood only) 22.7 % (37.0-47.0); Hemoglobin 6.6 g/dl (12.0-16.0)
--- NOTE | 2024-05-18 13:37 | Hospitalist Consultation ---
Date of Consultation May 18, 2024 Assessment & Plan (1) Iron deficiency anemia: Similar to previous admission and may be somewhat dilutional with IV fluids given Hgb 7.3 on discharge last admission but improved to 9.2 as outpatient Ferrous sulfate was started but no IV Venofer given last admission Will repeat workup with FOB, iron studies, B12 and folate Discussed with patient and despite Hgb 6.6 she is asymptomatic therefore wishes to see if this improves off IV fluids like last admission prior to a blood transfusion Repeat CBC in AM, if Hgb < 7 consider blood transfusion If iron levels continue to be decreased today will give iron transfusion (2) Normal anion gap metabolic acidosis: Suspect due to normal saline in setting of CKD and acetazolmide use (later prescribed by her neurologist) - recommend LR if IV fluids needed with future operations or sodium bicarb if serum CO2 is low Will start sodium bicarb 650mg PO BID History of Present Illness Reason for Consultation: anemia, medical management Attending Physician: Burt Trujillo MD History of Present Illness Desiree Ridley is a 48 year old female with staghorn calculus POD#2 for Laser Lithotripsy and Exchange of Stent Catheter Left. She denies any acute problems post operatively. Despite anemia she denies any chest pain shortness of breath or dizziness. She repeats herself constantly through the interview and reports she is anxious. Needs reassurance she isn't dying multiple times. Reassured if she gets iron transufsions or blood now that doesn't necessarily mean she needs it ongoing. She denies any known blood loss such as hematochezia, melena, hematemesis, hemoptysis or skin bleeding. No significant blood loss was seen during the operation. Allergies Allergy/AdvReac Type Severity Reaction Status Date / Time adhesive tape Allergy Severe Redness of Verified 05/16/24 06:20 Skin Penicillins Allergy Severe Rash Verified 05/16/24 06:20 aspirin AdvReac Severe Advised to Verified 05/16/24 06:20 avoid "due to angioma" blood thinner AdvReac Severe Advised to Uncoded 05/16/24 06:20 avoid "due to angioma" Home Medications Medication Instructions Recorded Confirmed Type cholecalciferol (vitamin D3) 50 50 mcg PO QAM 11/18/20 05/16/24 History mcg (2,000 unit) capsule cyanocobalamin (vitamin B-12) 500 1,000 mcg PO QAM 11/18/20 05/16/24 History mcg tablet acetazolamide 500 mg 500 mg PO BID 09/23/22 05/16/24 History capsule,extended release sertraline 100 mg tablet 200 mg PO QAM 09/23/22 05/16/24 History topiramate 200 mg tablet 200 mg PO BID 09/23/22 05/16/24 History albuterol sulfate 90 mcg/actuation 2 puff inhalation Q6H PRN sob 11/04/22 05/09/24 History aerosol inhaler (Ventolin HFA) famotidine 20 mg tablet (Pepcid) 20 mg PO HS 11/04/22 05/16/24 History sitagliptin phosphate 50 mg tablet 50 mg PO HS 12/01/22 05/16/24 History (Januvia) ferrous sulfate 325 mg (65 mg 325 mg PO QAM 04/23/23 05/16/24 History iron) tablet (iron) lisinopril 5 mg tablet 5 mg PO HS 04/23/23 05/16/24 History pantoprazole 40 mg tablet,delayed 40 mg PO BID #60 tabs 08/05/23 05/16/24 Rx release ascorbic acid (vitamin C) 500 mg 500 mg PO BID 04/21/24 05/16/24 History tablet,extended release (Vitamin C With Uyen Hips) atorvastatin 10 mg tablet 10 mg PO HS 04/21/24 05/16/24 History buspirone 30 mg tablet 30 mg PO BID 04/21/24 05/16/24 History clindamycin phosphate 1 % lotion 1 applic topical DAILY PRN 04/21/24 05/16/24 History inflammed boils hydrocortisone 2.5 % topical cream 1 applic NV BID PRN hemorrhoids 04/21/24 05/16/24 History with perineal applicator hyoscyamine sulfate 0.125 mg tablet 0.125 mg PO QID 04/21/24 05/16/24 History solifenacin 10 mg tablet (Vesicare) 10 mg PO DAILY #30 tabs 04/25/24 05/16/24 Rx tramadol 50 mg tablet 50 mg PO Q6H PRN pain #20 tabs 05/02/24 05/09/24 Rx metformin 500 mg tablet,extended 1,000 mg PO QAM 05/03/24 05/16/24 History release 24 hr Patient History Medical History (Updated 05/18/24 @ 13:28 by Mehran Hansen MD) Thrombocytopenia dx during 04/2024 admission [facility]; mild; monitoring UTI (urinary tract infection) pt admitted [facility] 05/03/24 (POD1 from cysto, litho procedure) for UTI with possible sepsis. D/C on 05/06/24. currently on Cefdinir History of recent fall 05/04/24, while amb w/ walker while inpt at [facility]. no loc, no head strike Arthritis Left nephrolithiasis Hemorrhoids occasional bleeding Ureteral stent present Thrombocytopenia Iron deficiency anemia monitored during inpt admission 04/2024. Iron was low; pt had been off of iron supplement and it was resumed. No signs of GI bleed. Per D/C summary: "She denies any dizziness. No hypotension. No indication for blood transfusion. This will need to be pursued outpatient by her PCP. Advised to follow-up with PCP in 1 week" Angioma brain angioma -- follows with [facility] neurology Osteoarthritis Diabetes mellitus, type 2 NIDDM Chronic sinusitis Staghorn calculus current - left side (had procedure 03/2024 in [place] and 04/2024 [facility] for this) History of recurrent UTI (urinary tract infection) Legally blind VANDANA (obstructive sleep apnea) Bipap at night; not using, being fixed currently Hx of necrotizing fasciitis (2017) unknown cause. IBS (irritable bowel syndrome) GERD (gastroesophageal reflux disease) Pseudotumor cerebri follows with [facility] Orthopnea Overactive bladder Anxiety severe Depression OCD (obsessive compulsive disorder) severe Morbid obesity with BMI of 70 and over, adult Asthma well controlled Surgical History History of cystoscopy multiple cystoscopy and lithotripsy procedures. most recent: cysto, laser litho, L stent 05/02/24 [facility]: [place]: Glidescope#3, ETT#7.0 oral, Gr View 1 History of colonoscopy History of open reduction and internal fixation (ORIF) procedure LLE History of tonsillectomy History of x2 History of cholecystectomy History of surgery (2017) RLE x 7 surgeries r/t necrotizing fasciitis Family History Other Bladder cancer No family history of adverse response to anesthesia Social History Smoking Status: Former smoker Tobacco Type: Cigarettes Smoking End Date: quit 2017; Second Hand Exposure: No; Do You Dip or Chew Tobacco: No; Tobacco Cessation Education Requested by Patient: No Hx Alcohol Use: No Hx Substance Use: No Preferred Language: Moroccan Communication Ability: Effective Communication Ability Comment: pt is legally blind. does not read braille Visual Impairment: Blindness Vice President Of Nursing Required: No Beliefs That Will Affect Care: None Current Living Situation: Family and Significant Other Current Living Situation Comment: son and boyfriend Other Information That Helps Us Care for You: No Feels Safe at Home: Yes Safety Concerns: Feels Safe At This Time Assistive Devices: CPAP, Hospital Bed, Lift Chair and Walker Review of Systems Review of Systems: All systems reviewed & are unremarkable except as noted in HPI & below Physical Exam Constitutional: + morbidly obese; + not well nourished a nd no acute distress Respiratory: normal respiratory effort, lungs clear to auscultation Cardiovascular: RRR, no murmur, no edema Gastrointestinal (Abdomen): normal bowel sounds, soft, nontender, no hepatosp lenomegaly Psychiatric: Orientation: alert and oriented x 3 Affect: + anxious affect Genitourinary: no CVA tenderness Results & Data Results & Data Vital Signs (Past 12 Hours) Vital Signs Temp Pulse Resp BP Pulse Ox O2 Del Method 05/18/24 07:40 Room Air 05/18/24 07:06 36.7 C 78 16 100/64 97 Room Air Laboratory Results Abnormal lab results 05/17/24 05/17/24 05/18/24 Range/Units 16:37 20:27 05:47 WBC 2.92 L (4.8-10.8) K/ul RBC 2.79 L (4.20-5.40) M/uL Hgb 7.0 L (12.0-16.0) g/dl Hct 24.1 L (37.0-47.0) % MCH (25.0-34.0) pg MCHC 29.0 L (32.0-36.0) g/dL RDW Std Deviation 51.3 H (36.4-46.3) fL RDW Coeff of Eleni 15.9 H (11.5-14.5) % Plt Count 105 L (130-400) K/uL MPV 9.1 L (9.4-12.4) fL Chloride 118 H (98-107) mmol/L Carbon Dioxide 15 L (21-32) mmol/L BUN 39 H (6-23) mg/dl Creatinine 1.96 H (0.6-1.2) mg/dl POC Glucose 108 H 112 H (70-99) mg/dl Calcium 7.8 L (8.6-10.3) mg/dl 05/18/24 05/18/24 05/18/24 Range/Units 07:43 11:29 11:46 WBC 2.90 L (4.8-10.8) K/ul RBC 2.70 L (4.20-5.40) M/uL Hgb 6.7 L* (12.0-16.0) g/dl Hct 23.3 L (37.0-47.0) % MCH 24.8 L (25.0-34.0) pg MCHC 28.8 L (32.0-36.0) g/dL RDW Std Deviation 50.9 H (36.4-46.3) fL RDW Coeff of Eleni 16.0 H (11.5-14.5) % Plt Count 110 L (130-400) K/uL MPV (9.4-12.4) fL Chloride (98-107) mmol/L Carbon Dioxide (21-32) mmol/L BUN (6-23) mg/dl Creatinine (0.6-1.2) mg/dl POC Glucose 109 H 155 H (70-99) mg/dl Calcium (8.6-10.3) mg/dl 05/18/24 Range/Units 13:17 WBC (4.8-10.8) K/ul RBC (4.20-5.40) M/uL Hgb 6.6 L* (12.0-16.0) g/dl Hct 22.7 L (37.0-47.0) % MCH (25.0-34.0) pg MCHC (32.0-36.0) g/dL RDW Std Deviation (36.4-46.3) fL RDW Coeff of Eleni (11.5-14.5) % Plt Count (130-400) K/uL MPV (9.4-12.4) fL Chloride (98-107) mmol/L Carbon Dioxide (21-32) mmol/L BUN (6-23) mg/dl Creatinine (0.6-1.2) mg/dl POC Glucose (70-99) mg/dl Calcium (8.6-10.3) mg/dl PG Care Time/CCT Total # of Minutes Spent Total Time Spent with Patient: Total time spent is greater than 50% in coordination of care (as documented) at patient's floor/unit and/or counseling patient: Coding Level of Care Code 87625 IN/OBS CONSULT LVL 4,60M Diagnoses Iron deficiency anemia D50.9 Normal anion gap metabolic acidosis E87.20
[2024-05-18] MEDS ORDERED: SODIUM CHLORIDE 0.9% 250 ML IV PRN ×2 (13:40→17:11)
[2024-05-18 13:56] LABS: Reticulocyte % 1.26 % (0.50-2.00); Reticulocytes # 0.03 10^6/uL (0.020-0.100)
[2024-05-18] MEDS ORDERED: MICONAZOLE NITRATE 2% CR 30 GM TUBE EXT PRN (14:17)
[2024-05-18 14:51] LABS: Base Excess VBG -10.4 mEq/L; HCO3 VBG 16 mmol/L; Oxygen Saturation VBG 70.2 %; PCO2 VBG 35 mmHg (38-50); PO2 VBG 40 mmHg; pH VBG 7.26 (7.36-7.41)
[2024-05-18] MEDS: SODIUM BICARBONATE 650 MG TAB PO SCH (14:56)
[2024-05-18 15:33] LABS: Ferritin 91.2 ng/ml (8-388)
[2024-05-18 15:39] LABS: Folate (Folic Acid),Ser orPlas 6.81 ng/ml (>5.38)
[2024-05-18] MEDS: ASCORBIC ACID 500 MG TAB PO SCH (21:18)
[2024-05-19 07:59] LABS: Hematocrit (blood only) 25.4 % (37.0-47.0); Hemoglobin 7.5 g/dl (12.0-16.0); Mean Corpuscular Hemoglobin 25.6 pg (25.0-34.0); Mean Corpuscular Hgb Conc 29.5 g/dL (32.0-36.0); Mean Corpuscular Volume 86.7 fL (80.0-100.0); Mean Platelet Volume 9.6 fL (9.4-12.4); Platelet Count 125 K/uL (130-400); RDW Coefficient of Variation 15.7 % (11.5-14.5); RDW Standard Deviation 50.4 fL (36.4-46.3); Red Blood Count 2.93 M/uL (4.20-5.40)
[2024-05-19 08:22] LABS: BUN Creatinine Ratio 21.4 (10-20); Creatinine Clr Calc Pharmacy 58.4 ml/min; Est GFR (Non-African American) 29.3 ml/min; Potassium 4.2 mmol/L (3.5-5.1)
[2024-05-19 12:01] LABS: Hematocrit (blood only) 26.3 % (37.0-47.0); Hemoglobin 7.5 g/dl (12.0-16.0); Mean Corpuscular Hemoglobin 25.3 pg (25.0-34.0); Mean Corpuscular Hgb Conc 28.5 g/dL (32.0-36.0); Mean Corpuscular Volume 88.6 fL (80.0-100.0); Mean Platelet Volume 9.6 fL (9.4-12.4); Platelet Count 115 K/uL (130-400); RDW Coefficient of Variation 15.9 % (11.5-14.5); RDW Standard Deviation 51.6 fL (36.4-46.3); Red Blood Count 2.97 M/uL (4.20-5.40); White Blood Count 3.31 K/ul (4.8-10.8)
--- NOTE | 2024-05-19 12:54 | Urology Progress Note ---
Date of Service May 19, 2024 Assessment & Plan (1) Ureteral stent present: (2) Staghorn calculus: Plan - POD #3 s/p Cystoscopy, Ureteronephroscopy, Retrograde Pyelogram, Laser Lithotripsy, Exchange of Left Stent Catheter - Admitted to urology service postoperatively - Hospital medicine consulted for medical management, anemia - appreciate assistance - Tolerating the stent with minimal bother - Remains afebrile, normotensive. - Labs today - WBC 3.31, Creatinine 1.96, Hemoglobin stable at 7.5 -s/p 1 unit PRBCs 05/18. - Voiding spontaneously - Discussed with hospital team - OK for discharge from their standpoint Plan: - Stable for discharge home today - Will d/c on short course of antibiotics and Flomax per pt request - Discharge instructions were reviewed, all questions were answered. - Will arrange follow-up with our service. Admission and Anticipated Discharge Date Admission Date: May 16, 2024 Subjective Patient seen at bedside today Awake, sitting in bedside chair on arrival No acute distress She is very anxious Feels she is at baseline Reports some pressure with voiding but otherwise no c/o pain Denies dysuria Denies f/c/n/v Denies chest pain, dizziness, lightheadedness Review of Systems Constitutional: as per Subjective / HPI Gastrointestinal: as per Subjective / HPI Genitourinary: as per Subjective / HPI Physical Exam Constitutional: + obese; no acute distress Eyes: Legally blind Respiratory: no respiratory distress and no labored breathing Skin: Warm and dry Neurologic: moves all extremities and awake Psychiatric: Orientation: alert and oriented x 3 Affect: + anxious affect Results & Data Vital Signs (Past 12 Hours) Vital Signs Temp Pulse Resp BP Pulse Ox O2 Del Method 05/19/24 12:33 113/62 100 Room Air 05/19/24 08:00 Room Air 05/19/24 07:00 36.6 C 75 18 114/72 99 Room Air PG Care Time/CCT Total # of Minutes Spent Total Time Spent with Patient: Total time spent is greater than 50% in coordination of care (as documented) at patient's floor/unit and/or counseling patient: Coding Level of Care Code 61202 SUB INP/OBS CARE 2/35MIN Diagnoses Ureteral stent present Z96.0 Staghorn calculus N20.0
--- NOTE | 2024-05-19 13:26 | Hospitalist Progress Note ---
Date of Service May 19, 2024 Assessment & Plan (1) Iron deficiency anemia: Plan: Likely due to IV fluids, underlying CKD, and recent procedure performed. Previous admission patient was 7.3 on discharge and improved to 9.2 outpatient. -s/p 1 unit PRBCs 05/18 -reviewed repeat CBC 05/19: hgb stable at 7.5. -Continue Ferrous sulfate -consider hematology outpatient workup if levels do not improve. -if patient is discharged, repeat CBC in 1 week. Discussed with urology PADMINI. (2) Normal anion gap metabolic acidosis: Plan: Suspect due to normal saline in setting of CKD and acetazolamide use (later prescribed by her neurologist) - recommend LR if IV fluids needed with future operations or sodium bicarb if serum CO2 is low Will start sodium bicarb 650mg PO BID Admission and Anticipated Discharge Date Admission Date: May 16, 2024 Subjective Patient seen and examined this afternoon at bedside. Patient is very anxious and is very scared of "dying" and "having cancer". All questions were answered. Patient feels at baseline. She was pleased her hgb did not drop any further. She states this has happened to her in the past following procedures as well. She denied chest pain. She did have some SOB and thinks it is "because she is fat". Physical Exam 2 Constitutional: WD/WN, vitals as above Eyes: PERRL, conjunctivae normal, anicteric sclerae Respiratory: normal respiratory effort, lungs clear to auscultation Cardiovascular: RRR, no murmur, no edema Psychiatric: A+Ox3, euthymic affect Results & Data Results & Data Vital Signs (Past 12 Hours) Vital Signs Temp Pulse Resp BP Pulse Ox O2 Del Method 05/19/24 12:33 113/62 100 Room Air 05/19/24 08:00 Room Air 05/19/24 07:00 36.6 C 75 18 114/72 99 Room Air Laboratory Results 05/19/24 11:45 05/19/24 07:28 PG Care Time/CCT Total # of Minutes Spent Total Time Spent with Patient: Total time spent is greater than 50% in coordination of care (as documented) at patient's floor/unit and/or counseling patient: Coding Level of Care Code 38869 SUB INP/OBS CARE 2/35MIN Diagnoses Other iron deficiency anemia D50.8 Iron deficiency anemia type: other iron deficiency Normal anion gap metabolic acidosis E87.20 (1) Iron deficiency anemia Iron deficiency anemia type: other iron deficiency Qualified Code(s): D50.8 - Other iron deficiency anemias
[2024-05-19 15:35] LABS: Adenovirus F 40/41 PCR Not Detected (NotDetected); Astrovirus PCR Not Detected (NotDetected); Campylobacter PCR Not Detected (NotDetected); Cryptosporidium PCR Not Detected (NotDetected); Cyclospora cayetanensis PCR Not Detected (NotDetected); Entamoeba histolytica PCR Not Detected (NotDetected); Enteroaggregative E.coli(EAEC) Not Detected (NotDetected); Enteropathogenic E.coli (EPEC) Not Detected (NotDetected); Enterotoxigenic E.coli (ETEC) Not Detected (NotDetected); Giardia lamblia PCR Not Detected (NotDetected); Norovirus GI/GII PCR Not Detected (NotDetected); Plesiomonas shigelloides PCR Not Detected (NotDetected); Rotavirus A PCR Not Detected (NotDetected); Salmonella PCR Not Detected (NotDetected); Sapovirus PCR Not Detected (NotDetected); Shiga-like Toxin E.coli (STEC) Not Detected (NotDetected); Shigella/Enteroinvasive E.coli Not Detected (NotDetected); Vibrio cholerae PCR Not Detected (NotDetected); Vibrio species PCR Not Detected (NotDetected); Yersinia enterocolitica PCR Not Detected (NotDetected)
--- NOTE | 2024-05-19 15:43 | Discharge Summary ---
Date of Service May 19, 2024 Admission HPI Per Admitting Provider 48yo/F who returns for the next stage of her multistage left ureteroscopy laser lithotripsy for a large staghorn calculus Admission Exam Per Admitting Provider Physical Exam: Obese Constitutional: well developed and well nourished Neck: neck nontender Respiratory: normal respiratory effort; no respiratory distress and does not use accessory muscles Cardiovascular: Rate/Rhythm: regular rate Vessels: radial pulses present Extremities: no edema Gastrointestinal (Abdomen): Inspection/Auscultation: abdomen normal to inspection Percussion/Palpation: abdomen soft; abdomen nontender and no guarding Musculoskeletal: Head/Neck/Chest: normocephalic and head atraumatic Extremities: extremities normal to inspection Skin: no rashes and no lesions Trauma: no evidence of skin trauma Neurologic: awake; not obtunded Speech / Cognition: normal speech Motor/Sensory: no tremor Psychiatric: Orientation: alert and oriented x 3 Lymphatic: no lymphadenopathy Principal Diagnosis Renal Calculus Discharge Exam Constitutional + obese; no acute distress Respiratory no respiratory distress and no labored breathing Skin Warm and dry Neurologic moves all extremities and awake Psychiatric Orientation: alert and oriented x 3 Affect: + anxious affect Discharge Data Allergies Allergy/AdvReac Type Severity Reaction Status Date / Time adhesive tape Allergy Severe Redness of Verified 05/16/24 06:20 Skin Penicillins Allergy Severe Rash Verified 05/16/24 06:20 aspirin AdvReac Severe Advised to Verified 05/16/24 06:20 avoid "due to angioma" blood thinner AdvReac Severe Advised to Uncoded 05/16/24 06:20 avoid "due to angioma" Consultations 05/18/24 13:06 Consult Hospitalist Routine Procedures Performed Operation Date: 05/16/24 07:30 Actual Procedures p Cystoscopy, Ureteronephroscopy, Retrograde Pyelogram, Laser Lithotripsy, (Right) - Burt Trujillo MD s Exchange of Stent Catheter Left(Right) - Burt Trujillo MD Ordered Studies 05/16/24 [place] retrograde includes kub Routine Hospital Course (1) Ureteral stent present: (2) Staghorn calculus: Plan - POD #1 s/p Cystoscopy, Ureteronephroscopy, Retrograde Pyelogram, Laser Lithotripsy, Exchange of Left Stent Catheter - Admitted to urology service postoperatively. - Afebrile at present (Febrile overnight - Tmax 38C). Mildly hypotensive otherwise stable vitals. - Labs reviewed - WBC 3.31, Hemoglobin 6.5, Creatinine 2.14. - Voiding spontaneously. - Continues on Ceftriaxone. - Will repeat H&H now. - Continue supportive care and antibiotic therapy. - Will reassess after repeat labs. - Pt reassessed - Afebrile, mildly hypotensive otherwise stable vitals - Repeat Hgb 7.5, Hct 25.7 - Will continue to trend labs - Continue supportive care and antibiotic therapy - Will reassess in the morning, possible d/c home tomorrow pending patient progression - POD #2 s/p Cystoscopy, Ureteronephroscopy, Retrograde Pyelogram, Laser Lithotripsy, Exchange of Left Stent Catheter - Admitted to urology service postoperatively - Tolerating the stent with minimal bother - Afebrile, normotensive. - Labs today - WBC 2.92, Hemoglobin 7.0, Creatinine 1.96. - Voiding spontaneously - D/C IV Fluids - Repeat H&H - Continue home medications - Continue SCDs Update- - Repeat Hgb 7.0-6.7-6.6. - Hospital medicine consulted d/t anemia, medical management - appreciate assistance - Continue to trend labs - Continue supportive care and antibiotic therapy - Encourage ambulation - Will reassess in the AM, possible discharge home tomorrow pending patient progression - POD #3 s/p Cystoscopy, Ureteronephroscopy, Retrograde Pyelogram, Laser Lithotripsy, Exchange of Left Stent Catheter - Admitted to urology service postoperatively - Hospital medicine consulted for medical management, anemia - appreciate assistance - Tolerating the stent with minimal bother - Remains afebrile, normotensive. - Labs today - WBC 3.31, Creatinine 1.96, Hemoglobin stable at 7.5 -s/p 1 unit PRBCs 7/11. - Voiding spontaneously - Discussed with hospital team - OK for discharge from their standpoint - Stable for discharge home today - Will d/c on short course of antibiotics and Flomax per pt request - Discharge instructions were reviewed, all questions were answered. - Will arrange follow-up with our service. Total Time Total Time Spent Total Time Spent (In Minutes): 15 Discharge Plan Discharge Items Patient Disposition: Home - Self-Care Reason For Visit: Calculus Kidney Discharge Diagnosis: Calculus Kidney Activity: Per Instructions section Non-emergency contact: Surgeon and Urologist Call non-emergency contact if: you have any medication questions, your symptoms worsen, your pain is worsening and you have a fever Follow-up/Referrals: Burt Trujillo MD [Physician] - José Miguel Ohara [Primary Care Provider] - Diet: Regular Addtl Attending Provider Instructions: Please take all medications as prescribed and keep all follow-ups as scheduled. Please call our office at [phone] with any questions, concerns or need to reschedule appointments for any reason. We are happy to assist you. A prescription for an antibiotic (Cefdinir) and Flomax has been sent to your pharmacy. Please take as directed. While you have a ureteral stent in place: Some discomfort is normal. Certain movements may trigger pain or a feeling that you need to urinate. You may also feel mild soreness or pressure before or during urination. Your urine may be slightly pink or red. This is due to bleeding caused by minor irritation from the stent. This may happen on and off while you have the stent, it is not harmful and is to be expected. Medication to help minimize discomfort or bladder spasms, or to prevent infection may be prescribed. Take this as directed. Drink plenty of fluids to help flush out your urinary tract. When to call [facility] at [phone]: Your urine contains heavy blood clots or you are unable to urinate You are constantly leaking urine Fever of 101F or higher, chills, nausea, or vomiting Your pain is not relieved with medication The end of the stent comes out of your urethra Addtl Hot Saw Operator Provider Instructions: Hospital medicine recommendations- -Repeat CBC in 1 week. -Consider hematology outpatient workup if levels do not improve -Follow-up with your PCP Pending Studies at Discharge: No Stand-Alone Forms: My [employer], Smoking Cessation Medications and DC Order Prescriptions: New tamsulosin [Flomax] 0.4 mg capsule 0.4 mg PO HS Qty: 30 0RF cefdinir 300 mg capsule 300 mg PO BID 3 Days Qty: 6 0RF Continued famotidine [Pepcid] 20 mg tablet 20 mg PO HS albuterol sulfate [Ventolin HFA] 90 mcg/actuation HFA aerosol inhaler 2 puff inhalation Q6H PRN (Reason: sob) Patient Comments: Has not had to use pantoprazole 40 mg tablet,delayed release (DR/EC) 40 mg PO BID Qty: 60 0RF solifenacin [Vesicare] 10 mg tablet 10 mg PO DAILY Qty: 30 11RF cholecalciferol (vitamin D3) 50 mcg (2,000 unit) capsule 50 mcg PO QAM Rx Instructions: Unable to verify OTC meds at this date/time cyanocobalamin (vitamin B-12) 500 mcg tablet 1,000 mcg PO QAM Rx Instructions: Unable to verify OTC meds at this date/time acetazolamide 500 mg capsule, extended release 500 mg PO BID sertraline 100 mg tablet 200 mg PO QAM topiramate 200 mg tablet 200 mg PO BID Januvia 50 mg tablet 50 mg PO HS ferrous sulfate [iron] 325 mg (65 mg iron) Tablet 325 mg PO QAM lisinopril 5 mg tablet 5 mg PO HS hyoscyamine sulfate 0.125 mg tablet 0.125 mg PO QID buspirone 30 mg tablet 30 mg PO BID ascorbic acid (vitamin C) [Vitamin C With Uyen Hips] 500 mg Tablet Extended Release 500 mg PO BID Rx Instructions: Unable to verify OTC meds at this date/time atorvastatin 10 mg tablet 10 mg PO HS hydrocortisone 2.5 % cream with perineal applicator 1 applic SD BID PRN (Reason: hemorrhoids) clindamycin phosphate 1 % lotion 1 applic topical DAILY PRN (Reason: inflammed boils) Rx Instructions: Apply to the lesions BID when inflamed. tramadol 50 mg tablet 50 mg PO Q6H PRN (Reason: pain) Qty: 20 0RF Patient Comments: has not taken Rx Instructions: As of 05/03/24 - Pt hasn't started medication yet. metformin 500 mg tablet extended release 24 hr 1,000 mg PO QAM Discharge Orders: Discharge Order (Routine); Ordered 05/19/24 Ordered By: Emelia Zhu Admission Data Admit Date/Time: 05/16/24 09:32 Attending Provider: Burt Trujillo Admit Provider: Burt Trujillo Primary Care Provider: José Miguel Ohara Other Providers: Twan Kinsey; Mehran Hilton; Mark Murray; Bg Sibley; Anurag Garrison; Betsy House; Jade Rucker; Roula Valderrama; Darrian Gant; Delroy Kapoor; Marybel Mcmahan; Burt Louise; Mehran Hansen; Asad Infante; Kim Monet; Rose Crabtree; Rose Alan; Kae Coon; Jh Ybarra; Sanjana Vanegas; Hardik Holt; Satish Mcrae; John Singh; Kendra Michaud; Lian Berumen; Doroteo Tarango; Rodo Ariza; Mark Soira; Bg Teran; Grace Del Rio; Goldie Lopez Other Interventions: Discharge Summary Assessment (RN) Last Done: 05/19/24 15:19 Coding Diagnoses Ureteral stent present Z96.0 Staghorn calculus N20.0
== END 2024-05-19 17:10 | disposition home or self-care (01) ==
LOC: PACUINP 05:53 → ASU 05:53 → 3E 12:00

== ENCOUNTER 2024-06-06 10:16 | Observation (INO) ==
--- NOTE | 2024-05-30 14:58 | Anesthesiology Consultation ---
Date of Service May 30, 2024 Assessment & Plan (1) Encounter for pre-operative examination: Chart Review Chart Review: Acceptable Risk for Surgery and Patient NOT seen in Pre Admission Testing *Recent Anesthesia: 05/16/24 cysto, laser stone destruction: GA: Glidescope#3; per record: "easy 2 hand mask with oral AW#9, Grade I glide 3, airway very dry" (pt also had cysto, laser litho, L stent 05/02/24: Glidescope#3, Gr View 1) *See note, Re: anemia and transfusion 05/18/24 during admission. Pt states that she has been taking oral iron supplement. Will check CBC AM of surgery. Infectious Disease screening: Per PAT nursing assessment on 05/30/24, No known infectious disease contacts in past 10 days or current infectious disease symptoms. No recent travel outside the country. History Surgery Operation Date: 06/06/24 10:40 Proposed Procedures p Cystoscopy, Ureteronephroscopy, Retrograde Pyelogram, with Possible Ureteral Dilation, Laser Destruction or Extraction of the Stone, Insertion or Exchange of Stent Catheter-Left - Burt Trujillo MD Height/Weight Height: 5 ft 3 in Weight: 186.426 kg Allergies Allergy/AdvReac Type Severity Reaction Status Date / Time adhesive tape Allergy Severe Redness of Verified 05/30/24 13:31 Skin Penicillins Allergy Severe Rash Verified 05/30/24 13:31 aspirin AdvReac Severe Advised to Verified 05/30/24 13:31 avoid "due to angioma" blood thinner AdvReac Severe Advised to Uncoded 05/30/24 13:31 avoid "due to angioma" Medications Home Medications Medication Instructions Recorded Confirmed Last Taken cholecalciferol (vitamin D3) 50 50 mcg PO QAM 11/18/20 05/30/24 05/10/24 09:00 mcg (2,000 unit) capsule cyanocobalamin (vitamin B-12) 500 1,000 mcg PO QAM 11/18/20 05/30/24 05/10/24 09:00 mcg tablet acetazolamide 500 mg 500 mg PO BID 09/23/22 05/30/24 05/15/24 09:00 capsule,extended release sertraline 100 mg tablet 200 mg PO QAM 09/23/22 05/30/24 05/15/24 09:00 topiramate 200 mg tablet 200 mg PO BID 09/23/22 05/30/24 05/15/24 21:00 albuterol sulfate 90 mcg/actuation 2 puff inhalation Q6H PRN sob 11/04/22 05/30/24 Unknown aerosol inhaler (Ventolin HFA) famotidine 20 mg tablet (Pepcid) 20 mg PO HS 11/04/22 05/30/24 05/15/24 20:00 sitagliptin phosphate 50 mg tablet 50 mg PO HS 12/01/22 05/30/24 05/15/24 21:00 (Januvia) ferrous sulfate 325 mg (65 mg 325 mg PO QPM 04/23/23 05/30/24 05/15/24 06:00 iron) tablet (iron) lisinopril 5 mg tablet 5 mg PO HS 04/23/23 05/30/24 05/14/24 21:00 pantoprazole 40 mg tablet,delayed 40 mg PO BID #60 tabs 08/05/23 05/30/24 05/15/24 21:00 release ascorbic acid (vitamin C) 500 mg 500 mg PO BID 04/21/24 05/30/24 05/10/24 08:00 tablet,extended release (Vitamin C With Uyen Hips) atorvastatin 10 mg tablet 10 mg PO HS 04/21/24 05/30/24 05/15/24 20:00 buspirone 30 mg tablet 30 mg PO BID 04/21/24 05/30/24 05/15/24 20:00 clindamycin phosphate 1 % lotion 1 applic topical DAILY PRN 04/21/24 05/30/24 05/14/24 09:00 inflammed boils hydrocortisone 2.5 % topical cream 1 applic [place] BID PRN hemorrhoids 04/21/24 05/30/24 05/15/24 21:00 with perineal applicator hyoscyamine sulfate 0.125 mg tablet 0.125 mg PO QID 04/21/24 05/30/24 05/15/24 21:00 metformin 500 mg tablet,extended 1,000 mg PO QAM 05/03/24 05/30/24 05/14/24 09:00 release 24 hr solifenacin 10 mg tablet (Vesicare) 10 mg PO QAM 05/30/24 05/30/24 Unknown Past Medical History Medical History (Updated 05/31/24 @ 10:16 by Jerrica Pfeiffer PA-C) 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 Anxiety severe Arthritis Asthma well controlled Boil of groin pt described hx of "boils" around perineum area, states worsen with stress. has had these get infected in past with purulent drainage requiring abx. has clindaymycin ointment to use. states currently has one the size of her palm at top of nicole-area but not draining / advised to have her pcp assess - "Ita" from Dr. Trujillo office on phone call and states she will alert Dr. Trujillo Chronic sinusitis Depression Diabetes mellitus, type 2 NIDDM GERD (gastroesophageal reflux disease) Hemorrhoids occasional bleeding History of postoperative nausea and vomiting History of recent fall 05/04/24, while amb w/ walker while inpt at [facility]. no loc, no head strike History of recent hospitalization Admitted after 05/16/24 urology surgery; D/C 05/19/24; received 1 unit PRBCs 05/18/24 History of recurrent UTI (urinary tract infection) Hx of colonic polyps Hx of necrotizing fasciitis (2017) unknown cause. Hx: UTI (urinary tract infection) (04/2024) treated, no current abx IBS (irritable bowel syndrome) Iron deficiency anemia monitored during inpt admission 04/2024. Iron was low; pt had been off of iron supplement and it was resumed. No signs of GI bleed. Per D/C summary: "She denies any dizziness. No hypotension. No indication for blood transfusion. Pt advised to f/u with PCP outpt. During 05/2024 admission, pt received 1 unit PRBCs on 05/18/24 and advised to f/u with PCP 1 week after hospital D/C Left nephrolithiasis Legally blind Morbid obesity with BMI of 70 and over, adult OCD (obsessive compulsive disorder) severe - pt. would only participate in PAT phone assessment with "ita" from Dr. Trujillo office on phone with her Orthopnea occasional VANDANA (obstructive sleep apnea) Bipap at night; not using currently Osteoarthritis Overactive bladder Pseudotumor cerebri follows with [facility] Neurology Staghorn calculus current - left side (had procedure 03/2024 in [place] and 04/2024 and 05/2024 [facility] for this) Thrombocytopenia (04/2024) dx during 04/2024 admission [facility]; mild; monitoring Ureteral stent present Past Family History Family History Other Bladder cancer No family history of adverse response to anesthesia Past Surgical History Surgical History (Updated 05/30/24 @ 15:34 by Jerrica Pfeiffer PA-C) History of x2 History of cholecystectomy History of cystoscopy (05/16/24) multiple cystoscopy and lithotripsy procedures. most recent 05/16/24: GA: Gl idescope#3; per record: "easy 2 hand mask with oral AW#9, Grade I glide 3, airway very dry" History of open reduction and internal fixation (ORIF) procedure LLE - as a chhild History of surgery (2016) RLE x 7 surgeries r/t necrotizing fasciitis History of tonsillectomy Hx of colonoscopy with polypectomy (05/2023) Social History Smoking Status: Former smoker Do You Dip or Chew Tobacco: No Smoking End Date: quit 6.5 ago (1 ppd) Hx Alcohol Use: No Hx Substance Use: No substance use type: does not use Lab Results Anesthesia Preop Results Results Anesthesia Widget: WBC 3.31 K/ul (4.8-10.8) L 05/19/24 Hgb 7.5 g/dl (12.0-16.0) L 05/19/24 Hct 26.3 % (37.0-47.0) L 05/19/24 Plt 115 K/uL (130-400) L 05/19/24 Na 142 mmol/L (136-145) 05/19/24 K 4.2 mmol/L (3.5-5.1) 05/19/24 Cl 119 mmol/L (98-107) H 05/19/24 CO2 15 mmol/L (21-32) L 05/19/24 BUN 42 mg/dl (6-23) H 05/19/24 Creat 1.96 mg/dl (0.6-1.2) H 05/19/24 Glucose Level 96 mg/dl (70-99(Fasting)) 05/19/24 Fasting Glucose 99 mg/dl (70-99) 05/18/24 POC Glucose 121 mg/dl (70-99) H 05/19/24 PT 12.4 seconds (9-12) H 04/06/24 INR 1.09 (0.9-1.1) 04/06/24 HA1c 5.5 % (4.5-5.6) 05/04/24 POC Ur Test NEG (NEG) 05/02/24 Urine Color Johnson 05/03/24 Urine Appearance Turbid (Clear) A 05/03/24 Urine pH 6.0 (4.5-7.5) 05/03/24 Urine Specific [place] 1.017 (1.000-1.030) 05/03/24 Urine Protein 3+ (Negative) H 05/03/24 Urine Glucose (UA) Negative (Negative) 05/03/24 Urine Ketones Negative (Negative) 05/03/24 Urine Blood 3+ (Negative) H 05/03/24 Urine Nitrite Negative (Negative) 05/03/24 Urine Bilirubin Negative (Negative) 05/03/24 Urine Urobilinogen Negative (Negative) 05/03/24 Urine Leukocyte Esterase 3+ (Negative) H 05/03/24 Urine WBC (Auto) >50 /hpf (0-5) H 05/03/24 Urine RBC (Auto) >20 /hpf (0-2) H 05/03/24 Urine Hyaline Casts (Auto) 3-5 /lpf (0-2) H 05/03/24 Urine Epithelial Cells (Auto) 11-20 /hpf (0-2) H 05/03/24 Urine Bacteria (Auto) 2+ (None Seen) H 05/03/24 Urine Yeast Present (None Prsent) A 05/03/24 Blood Type A Negative 05/18/24 Antibody Screen NEGATIVE 05/18/24 Testing Electrocardiogram Date: 05/16/24 Findings: + NSR @ (81bpm)
[2024-06-06] MEDS: LR 15ML/HR IV SCH (11:00)
--- NOTE | 2024-06-06 11:01 | History & Physical Report ---
Date of Service June 06, 2024 Assessment & Plan (1) Staghorn calculus: Plan left staghorn calculus - plan for next stage ureteroscopy, laser lithotripsy, stent exchange - risks, benefits, expectations reviewed History of Present Illness Primary Care Provider: José Miguel Ohara Returns for next stage of multiple staged ureteroscopy/laser lithotripsy surgeries Allergies Allergy/AdvReac Type Severity Reaction Status Date / Time adhesive tape Allergy Severe Redness of Verified 05/30/24 13:31 Skin Penicillins Allergy Severe Rash Verified 05/30/24 13:31 aspirin AdvReac Severe Advised to Verified 05/30/24 13:31 avoid "due to angioma" blood thinner AdvReac Severe Advised to Uncoded 05/30/24 13:31 avoid "due to angioma" Home Medications Medication Instructions Recorded Confirmed Type cholecalciferol (vitamin D3) 50 50 mcg PO QAM 11/18/20 05/30/24 History mcg (2,000 unit) capsule cyanocobalamin (vitamin B-12) 500 1,000 mcg PO QAM 11/18/20 05/30/24 History mcg tablet acetazolamide 500 mg 500 mg PO BID 09/23/22 05/30/24 History capsule,extended release sertraline 100 mg tablet 200 mg PO QAM 09/23/22 05/30/24 History topiramate 200 mg tablet 200 mg PO BID 09/23/22 05/30/24 History albuterol sulfate 90 mcg/actuation 2 puff inhalation Q6H PRN sob 11/04/22 05/30/24 History aerosol inhaler (Ventolin HFA) famotidine 20 mg tablet (Pepcid) 20 mg PO HS 11/04/22 05/30/24 History sitagliptin phosphate 50 mg tablet 50 mg PO HS 12/01/22 05/30/24 History (Januvia) ferrous sulfate 325 mg (65 mg 325 mg PO QPM 04/23/23 05/30/24 History iron) tablet (iron) lisinopril 5 mg tablet 5 mg PO HS 04/23/23 05/30/24 History pantoprazole 40 mg tablet,delayed 40 mg PO BID #60 tabs 08/05/23 05/30/24 Rx release ascorbic acid (vitamin C) 500 mg 500 mg PO BID 04/21/24 05/30/24 History tablet,extended release (Vitamin C With Uyen Hips) atorvastatin 10 mg tablet 10 mg PO HS 04/21/24 05/30/24 History buspirone 30 mg tablet 30 mg PO BID 04/21/24 05/30/24 History clindamycin phosphate 1 % lotion 1 applic topical DAILY PRN 04/21/24 05/30/24 History inflammed boils hydrocortisone 2.5 % topical cream 1 applic [place] BID PRN hemorrhoids 04/21/24 05/30/24 History with perineal applicator hyoscyamine sulfate 0.125 mg tablet 0.125 mg PO QID 04/21/24 05/30/24 History metformin 500 mg tablet,extended 1,000 mg PO QAM 05/03/24 05/30/24 History release 24 hr solifenacin 10 mg tablet (Vesicare) 10 mg PO QAM 05/30/24 05/30/24 History Past Med/Surg History Problem List (Updated 06/02/24 @ 00:08 by Background Daemon) Normal anion gap metabolic acidosis Fall Thrombocytopenia Anemia Ureteral stent present UTI (urinary tract infection) Hemorrhoids occasional bleeding Staghorn calculus Left nephrolithiasis Nausea Diarrhea Angioma brain angioma -- follows with [facility] neurology Iron deficiency anemia Heme positive stool GERD (gastroesophageal reflux disease) IBS (irritable bowel syndrome) Type 2 diabetes mellitus Cellulitis Legally blind VANDANA (obstructive sleep apnea) BiPAP UTI symptoms Obsessive compulsive disorder Anxiety and depression Frequency of micturition Urgency of urination Arthritis (Acute) Asthma (Acute) Psychological disorder (Acute) Sensation of pressure in bladder area (Acute) History of recurrent UTIs Medical History (Updated 06/02/24 @ 00:08 by Background Daemon) History of recent hospitalization Admitted after 05/16/24 urology surgery; D/C 05/19/24; received 1 unit PRBCs 05/18/24 Boil of groin pt described hx of "boils" around perineum area, states worsen with stress. has had these get infected in past with purulent drainage requiring abx. has clindaymycin ointment to use. states currently has one the size of her palm at top of nicole-area but not draining / advised to have her pcp assess - "Ita" from Dr. Trujillo office on phone call and states she will alert Dr. Trujillo Hx: UTI (urinary tract infection) (04/2024) treated, no current abx Hx of colonic polyps Encounter for pre-operative examination History of postoperative nausea and vomiting Thrombocytopenia (04/2024) dx during 04/2024 admission [facility]; mild; monitoring History of recent fall 05/04/24, while amb w/ walker while inpt at [facility]. no loc, no head strike Arthritis Left nephrolithiasis Hemorrhoids occasional bleeding Ureteral stent present Iron deficiency anemia monitored during inpt admission 04/2024. Iron was low; pt had been off of iron supplement and it was resumed. No signs of GI bleed. Per D/C summary: "She denies any dizziness. No hypotension. No indication for blood transfusion. Pt advised to f/u with PCP outpt. During 05/2024 admission, pt received 1 unit PRBCs on 05/18/24 and advised to f/u with PCP 1 week after hospital D/C Angioma brain angioma -- follows with [facility] neurology Osteoarthritis Diabetes mellitus, type 2 NIDDM Chronic sinusitis Staghorn calculus current - left side (had procedure 03/2024 in [place] and 04/2024 and 05/2024 [facility] for this) History of recurrent UTI (urinary tract infection) Legally blind VANDANA (obstructive sleep apnea) Bipap at night; not using currently Hx of necrotizing fasciitis (2017) unknown cause. IBS (irritable bowel syndrome) GERD (gastroesophageal reflux disease) Pseudotumor cerebri follows with [facility] Neurology Orthopnea occasional Overactive bladder Anxiety severe Depression OCD (obsessive compulsive disorder) severe - pt. would only participate in PAT phone assessment with "ita" from Dr. Trujillo office on phone with her Morbid obesity with BMI of 70 and over, adult Asthma well controlled Surgical History (Updated 05/30/24 @ 15:34 by Jerrica Pfeiffer PA-C) Hx of colonoscopy with polypectomy (05/2023) History of cystoscopy (05/16/24) multiple cystoscopy and lithotripsy procedures. most recent 05/16/24: GA: Glidescope#3; per record: "easy 2 hand mask with oral AW#9, Grade I glide 3, airway very dry" History of open reduction and internal fixation (ORIF) procedure LLE - as a chhild History of tonsillectomy History of x2 History of cholecystectomy History of surgery (2017) RLE x 7 surgeries r/t necrotizing fasciitis Family History Other Bladder cancer No family history of adverse response to anesthesia Social History Smoking Status: Former smoker Tobacco Type: Cigarettes Smoking End Date: quit 6.5 ago (1 ppd); Second Hand Exposure: No; Do You Dip or Chew Tobacco: No; Tobacco Cessation Education Requested by Patient: No Hx Alcohol Use: No Hx Substance Use: No Preferred Language: Georgian Communication Ability: Effective Communication Ability Comment: pt is legally blind. does not read braille Visual Impairment: Blindness Foil Spooler Required: No Beliefs That Will Affect Care: None Current Living Situation: Spouse Current Living Situation Comment: son and boyfriend Other Information That Helps Us Care for You: No Feels Safe at Home: Yes Safety Concerns: Feels Safe At This Time Assistive Devices: None Physical Exam Physical Exam: Obese Constitutional: well developed and well nourished Neck: neck nontender Respiratory: normal respiratory effort; no respiratory distress and does not use accessory muscles Cardiovascular: Rate/Rhythm: regular rate Vessels: radial pulses present Extremities: no edema Gastrointestinal (Abdomen): Inspection/Auscultation: abdomen normal to inspection Percussion/Palpation: abdomen soft; abdomen nontender and no guarding Musculoskeletal: Head/Neck/Chest: normocephalic and head atraumatic Extremi ties: extremities normal to inspection Skin: no rashes and no lesions Trauma: no evidence of skin trauma Neurologic: awake; not obtunded Speech / Cognition: normal speech Motor/Sensory: no tremor Psychiatric: Orientation: alert and oriented x 3 Lymphatic: no lymphadenopathy
[2024-06-06] MEDS ORDERED: fentaNYL citrate PF 100 MCG/2 ML VIAL IV PRN (11:08)
[2024-06-06] MEDS ORDERED: ePHEDrine sulfate 50 MG/ML AMP IV PRN (11:08)
[2024-06-06] MEDS ORDERED: ATROPINE SULFATE 0.1 MG/ML 10ML SYR IV PRN (11:08)
[2024-06-06] MEDS ORDERED: ONDANSETRON INJ 2 MG/ML 2 ML VIAL IV PRN ×2 (11:08→14:14)
[2024-06-06] MEDS ORDERED: PROPOFOL IV EMULSION 10 MG/ML 20 ML VIAL IV ONE ×4 (11:14→13:30)
[2024-06-06] MEDS ORDERED: DexMEDEtomidine HCL IV 100 MCG/ML VIAL IV ONE (11:14)
[2024-06-06] MEDS ORDERED: ONDANSETRON INJ 2 MG/ML 2 ML VIAL ONE (11:14)
[2024-06-06] MEDS ORDERED: DEXAMETHASONE SOD INJ 4 MG/ML VIAL ONE (11:14)
[2024-06-06] MEDS ORDERED: LIDOCAINE 2% 2 ML VIAL/AMP(20MG/ML) INFIL ONE (11:14)
[2024-06-06] MEDS ORDERED: fentaNYL citrate PF 100 MCG/2 ML VIAL ONE ×2 (11:15→13:00)
[2024-06-06 11:26] LABS: Basophils # (auto) 0.05 K/uL (0.00-0.20); Basophils % (auto) 0.6 %; Eosinophils # (auto) 0.11 K/uL (0.00-0.50); Eosinophils % (auto) 1.3 %; Hematocrit (blood only) 35.2 % (37.0-47.0); Hemoglobin 10.3 g/dl (12.0-16.0); Immature Granulocytes % (auto) 1.2 %; Lymphocytes # (auto) 1.99 K/uL (1.20-3.40); Lymphocytes % (auto) 23.8 %; Mean Corpuscular Hemoglobin 24.8 pg (25.0-34.0); Mean Corpuscular Hgb Conc 29.3 g/dL (32.0-36.0); Mean Corpuscular Volume 84.6 fL (80.0-100.0); Monocytes # (auto) 0.67 K/uL (0.11-0.59); Neutrophils # (auto) 5.44 K/uL (1.40-6.50); Neutrophils % (auto) 65.1 %; Platelet Count 197 K/uL (130-400); RDW Coefficient of Variation 16.8 % (11.5-14.5); RDW Standard Deviation 51.8 fL (36.4-46.3); Red Blood Count 4.16 M/uL (4.20-5.40); White Blood Count 8.36 K/ul (4.8-10.8)
[2024-06-06 11:42] LABS: BUN Creatinine Ratio 16.6 (10-20); Creatinine Clr Calc Pharmacy 72.5 ml/min; Est GFR (African American) 44.4 ml/min; Est GFR (Non-African American) 38.3 ml/min; Potassium 3.9 mmol/L (3.5-5.1)
[2024-06-06 11:44] LABS: Pregnancy Test, Serum Negative (Negative)
[2024-06-06] MEDS: cefTRIAXone SODIUM 2,000 MG MINI-B 50 ML IV SCH (11:44)
[2024-06-06] MEDS ORDERED: NEOSTIGMINE METHYLSULFATE 1 MG/ML 10ML VIAL ONE (13:02)
[2024-06-06] MEDS ORDERED: GLYCOPYRROLATE 0.2 MG/ML VIAL ONE (13:02)
[2024-06-06] MEDS ORDERED: HYDROCODONE/ACETAMOPHEN 5/325MG TAB PO PRN (14:14)
--- NOTE | 2024-06-06 14:26 | Operative Report ---
PG Post Operative Report Pre & Post Diagnosis Operation Date: 06/06/24 11:50 Pre-Op Diagnosis: Calculus of Left Kidney Post-Op Diagnosis: Calculus of Left Kidney I identified the patient and participated in the time-out.: Yes Procedure Operation Date: 06/06/24 11:50 Actual Procedures p Cystoscopy, Ureteronephroscopy, Retrograde Pyelogram, Ureteral Dilation, Laser Destruction of the Stone, Insertion of Stent Catheter - Left(Left) - Burt Trujillo MD Surgeon Burt Trujillo MD Gas Systems Worker none Estimated Blood Loss 5 Findings Consistent with Post-Op Diagnosis Specimens none Description of Procedure The patient was identified in the preoperative holding area, appropriate informed consents were reviewed and completed and the patient was transferred to the operative suite. Upon arrival, appropriate antibiotics and anesthesia were administered and the patient was placed in dorsal lithotomy position and prepped and draped in sterile fashion. Reviewed the case I passed a 22 Georgian cystoscope per urethra. Inspection revealed a stent protruding from the left orifice no other abnormalities The distal aspect of the stent withdrew it. I intubated with a sensor wire. I then passed a 10 Georgian double-lumen catheter into the proximal ureter. I used a Super Stiff wire through the second port of the catheter. I then advanced a flexible ureteral access sheath over the Super Stiff wire and positioned it at the UPJ. The sensor wire was left in place as a safety wire. I passed a disposable single use flexible ureteroscope per the access sheath. Bleeding in the upper pole I treated a few small fragments which were left over from her prior treatment. In the upper mid pole I again treated a few small fragments. Fluoroscopic evaluation showed the most of this area was clear but there was enough sand and debris that it was still showing on fluoroscopy. I then began to move towards the lower pole and the lower portion of the mid pole. This is where the majority of the stone still resides on imaging. I gradually work my way into the lower portion of the midpole and treated several stone fragments. After working with the these I encountered a very large stone in the posterior aspect of this calyx. I spent approximate the next hour treating that stone. At the conclusion of that time, the calyx had been largely cleared with exception of dust and small fragments which were safe for passage. Throughout that treatment I had required a new scope as well as a new laser fiber secondary to the difficulty of treating the stone. I then began to enter into the lower pole. I began to work my way through stone debris which was clogging the infundibulum into the lower pole. I eventually advance the scope into the lower pole which was still largely filled with stone. At this time I thought it was appropriate to conclude today's case as we have been lasering for greater than 90 minutes. I elected to withdraw the scope and carefully withdraw the access sheath simultaneously. Her ureter was quite healthy. A 7 Georgian by 24 cm double-J stent was placed with a good curl in the upper pole of the kidney as well as the bladder. Her bladder was decompressed and she was reversed from anesthesia. There were no complications. I attest to the content of the Intraoperative Record and any orders documented therein. Any exceptions are noted below.
[2024-06-06] MEDS ORDERED: traMADol HCL 50 MG TABLET PO PRN ×2 (14:27→14:28)
[2024-06-06] MEDS ORDERED: ACETAMINOPHEN 325 MG TAB PO PRN (14:29)
--- NOTE | 2024-06-06 15:03 | Anesthesiology Progress Note ---
Date of Service June 06, 2024 Anesthesia Post Procedure Vital Signs Vital Signs: Temp Pulse Pulse Resp BP BP Pulse Ox 06/06/24 15:00 90 16 102/59 L 94 06/06/24 14:50 36.4 C L 94 H 18 116/79 96 06/06/24 14:40 92 H 20 135/98 95 06/06/24 14:30 93 H 20 109/82 95 06/06/24 14:23 36.5 C 95 H 24 126/74 94 06/06/24 10:54 36.7 C 82 20 127/70 98 O2 Del Method O2 Flow Rate 06/06/24 15:00 Room Air 06/06/24 14:50 Nasal Cannula 2 06/06/24 14:40 Nasal Cannula 2 06/06/24 14:30 Nasal Cannula 2 06/06/24 14:23 Room Air 06/06/24 10:54 Room Air Transfer of Care Handoff Completed per policy Notes Mental Status: alert / awake / arousable Patient Amnestic to Procedure: Yes Nausea / Vomiting: adequately controlled Pain: adequately controlled Airway Patency, RR, SpO2: stable & adequate BP & HR: stable & adequate Hydration State: stable & adequate Anesthetic Complications: no major complications apparent
[2024-06-06] MEDS ORDERED: HYDROCORTISONE HC 2.5% CRM 30GM TUBE EXT PRN (16:03)
[2024-06-06] MEDS ORDERED: ALBUTEROL HFA 8 GM INHALER INH PRN (16:03)
--- NOTE | 2024-06-06 16:05 | Fluoroscopy Report ---
FL retrograde includes kub CLINICAL HISTORY: LEFT RETROGRADE, LASER, STENT COMPARISON STUDY: None. FLUOROSCOPY TIME: 56 seconds FLUOROSCOPY IMAGES: 14 Ka,r: 40.95 mGy FINDINGS: Retrograde opacification of the left renal collecting system with associated lithotripsy an d placement of a left ureteral stent. The ureteral stent appears in good position. IMPRESSION: Fluoroscopic assistance as above. ACT 112: Negative or not required by law. Electronically signed by: Asad Forrester M.D. 06/06/2024 4:04 PM
[2024-06-06] MEDS ORDERED: Nursing to Pharmacy Communication SCH (18:00)
[2024-06-06] MEDS: SODIUM CHLORIDE 0.9% 1,000 ML IV SCH (18:01)
[2024-06-06] MEDS: cefTRIAXone SODIUM 2,000 MG/50 ML BAG IV SCH (18:01)
[2024-06-06] MEDS: INSULIN ASPART PER UNIT CHARGE SC SCH (18:09)
[2024-06-06] MEDS: HYOSCYAMINE SULFATE 0.125 MG TAB PO SCH (18:11)
[2024-06-06] MEDS: busPIRone 15 MG TAB PO SCH (20:40)
[2024-06-06] MEDS: FERROUS SULFATE 325 MG TAB PO SCH (20:40)
[2024-06-06] MEDS: acetaZOLAMIDE 500 MG CAPCR PO SCH (20:40)
[2024-06-06] MEDS: lisinopril 5 MG TAB PO SCH (20:40)
[2024-06-06] MEDS: TOPIRAMATE 100 MG TAB PO SCH (20:40)
[2024-06-06] MEDS: ATORVASTATIN 10 MG TAB PO SCH (20:40)
[2024-06-06] MEDS: FAMOTIDINE 20 MG TAB PO SCH (20:40)
[2024-06-06] MEDS: ASCORBIC ACID 500 MG TAB PO SCH (20:40)
[2024-06-06] MEDS: PANTOprazole 40 MG TAB PO SCH (20:40)
[2024-06-06] MEDS ORDERED: FERROUS SULFATE 325 MG TAB PO SCH (21:00)
[2024-06-06] MEDS ORDERED: SITagliptin PHOSPHATE 25 MG TAB PO SCH (21:00)
[2024-06-07 07:53] LABS: Basophils # (auto) 0.03 K/uL (0.00-0.20); Basophils % (auto) 0.3 %; Eosinophils # (auto) 0.01 K/uL (0.00-0.50); Eosinophils % (auto) 0.1 %; Hematocrit (blood only) 27.9 % (37.0-47.0); Hemoglobin 8.2 g/dl (12.0-16.0); Immature Granulocytes # (auto) 0.08 K/uL (0.01-0.20); Immature Granulocytes % (auto) 0.8 %; Lymphocytes # (auto) 0.84 K/uL (1.20-3.40); Lymphocytes % (auto) 8.7 %; Mean Corpuscular Hemoglobin 24.9 pg (25.0-34.0); Mean Corpuscular Hgb Conc 29.4 g/dL (32.0-36.0); Mean Corpuscular Volume 84.8 fL (80.0-100.0); Mean Platelet Volume 9.4 fL (9.4-12.4); Monocytes # (auto) 1.07 K/uL (0.11-0.59); Monocytes % (auto) 11.1 %; Neutrophils # (auto) 7.64 K/uL (1.40-6.50); Platelet Count 136 K/uL (130-400); RDW Coefficient of Variation 16.5 % (11.5-14.5); RDW Standard Deviation 51.1 fL (36.4-46.3); Red Blood Count 3.29 M/uL (4.20-5.40); White Blood Count 9.67 K/ul (4.8-10.8)
--- NOTE | 2024-06-07 08:00 | Urology Progress Note ---
Date of Service June 07, 2024 Assessment & Plan (1) Staghorn calculus: Plan Left staghorn calculus status post numerous staged ureteroscopy's We continue to make progress and decrease her stone burden substantially Tolerated surgery well yesterday Anxiety seems to be her biggest issue this morning Plan for continued observation and potential discharge home this afternoon Admission and Anticipated Discharge Date Admission Date: June 06, 2024 Subjective Postop day #1 status post left ureteroscopy for staghorn calculus Doing okay this morning Has some abdominal pressure and pelvic pressure but otherwise seems to be okay Afebrile overnight No leukocytosis this morning Her hemoglobin appears to have dropped today, this is happen after every surgery despite a lack of blood loss during surgery I think this may be very much artifactual Physical Exam Physical Exam: Abdomen soft, nontender Results & Data Vital Signs (Past 12 Hours) Vital Signs Temp Pulse Resp BP Pulse Ox O2 Del Method 06/07/24 03:15 37.1 C 98 H 18 109/65 96 Room Air 06/06/24 23:12 37.6 C H 110 H 18 127/70 98 Room Air PG Care Time/CCT Total # of Minutes Spent Total Time Spent with Patient: Total time spent is greater than 50% in coordination of care (as documented) at patient's floor/unit and/or counseling patient: Coding Level of Care Code None Diagnoses Staghorn calculus N20.0
[2024-06-07 08:34] LABS: Calcium 7.6 mg/dl (8.6-10.3); Creatinine Clr Calc Pharmacy 66.6 ml/min; Est GFR (African American) 40.1 ml/min; Est GFR (Non-African American) 34.6 ml/min; Potassium 3.7 mmol/L (3.5-5.1)
[2024-06-07] MEDS: metFORMIN HCL ER 500 MG TABCR PO SCH (09:35)
[2024-06-07] MEDS: CYANOCOBALAMIN (B-12) 500 MCG TABLET PO SCH (09:35)
[2024-06-07] MEDS: SERTRALINE HCL 100 MG TABLET PO SCH (09:36)
[2024-06-07] MEDS: OXYBUTYNIN CHLORIDE XL 5 MG TABCR PO SCH (09:36)
[2024-06-07] MEDS: CHOLECALCIFEROL 25 MCG (1000 UNITS) TAB PO SCH (09:36)
--- NOTE | 2024-06-07 11:42 | Communication Note ---
Date of Service: June 07, 2024 Asked to see pt regarding her concern for sore throat. She is POD #1 from a urology procedure (has had multiple similar procedures in past) that required general anesthesia. Per anesthesia team that cared for her yesterday there was no difficulty with intubation or extubation. She had had concerns previously with dry throat and mouth perioperatively. Went to see patient on floor as it appeared she might be discharged from the hospital today. Patient stated she had a sore throat but denied any swallowing difficulty. She had been eating red popsicles so tongue and throat were coated by dye. I did note a small area of irritation near the posterior aspect of the hard palate. No ulceration noted. Had a long discussion with patient about irritation from the endotracheal tube and its natural course. This likely should resolve in two or three days. She was advised to continue to use ice chips and cool liquids for symptom relief. She was also advised to consume softer foods. She can also use throat lozenges if needed. If her symptoms do not improve she knows to follow up with her primary care provider. All questions were answered.
[2024-06-07] MEDS: cefTRIAXone SODIUM 2,000 MG/50 ML BAG IV SCH (15:53)
--- NOTE | 2024-06-08 07:33 | Discharge Summary ---
Date of Service June 08, 2024 Admission HPI Per Admitting Provider Returns for next stage of multiple staged ureteroscopy/laser lithotripsy surgeries Admission Exam Per Admitting Provider Physical Exam: Obese Constitutional: well developed and well nourished Neck: neck nontender Respiratory: normal respiratory effort; no respiratory distress and does not use accessory muscles Cardiovascular: Rate/Rhythm: regular rate Vessels: radial pulses present Extremities: no edema Gastrointestinal (Abdomen): Inspection/Auscultation: abdomen normal to inspection Percussion/Palpation: abdomen soft; abdomen nontender and no guarding Musculoskeletal: Head/Neck/Chest: normocephalic and head atraumatic Extremities: extremities normal to inspection Skin: no rashes and no lesions Trauma: no evidence of skin trauma Neurologic: awake; not obtunded Speech / Cognition: normal speech Motor/Sensory: no tremor Psychiatric: Orientation: alert and oriented x 3 Lymphatic: no lymphadenopathy Principal Diagnosis Staghorn calculus Discharge Exam Constitutional + morbidly obese; no acute distress Respiratory no respiratory distress and no labored breathing Musculoskeletal Head/Neck/Chest: normocephalic Neurologic moves all extremities and awake Psychiatric Orientation: alert and oriented x 3 Affect: + anxious affect Discharge Data Allergies Allergy/AdvReac Type Severity Reaction Status Date / Time adhesive tape Allergy Severe Redness of Verified 06/06/24 11:05 Skin Penicillins Allergy Severe Rash Verified 06/06/24 11:05 aspirin AdvReac Severe Advised to Verified 06/06/24 11:05 avoid "due to angioma" blood thinner AdvReac Severe Advised to Uncoded 06/06/24 11:05 avoid "due to angioma" Procedures Performed Operation Date: 06/06/24 11:50 Actual Procedures p Cystoscopy, Ureteronephroscopy, Retrograde Pyelogram, Ureteral Dilation, Laser Destruction of the Stone,(Left) - Burt Trujillo MD s Insertion of Stent Catheter - Left(Left) - Burt Trujillo MD Ordered Studies 06/06/24 07:00 FL retrograde includes kub Routine Hospital Course (1) Staghorn calculus: Plan Left staghorn calculus status post numerous staged ureteroscopy's We continue to make progress and decrease her stone burden substantially Tolerated surgery well yesterday Anxiety seems to be her biggest issue this morning Plan for continued observation and potential discharge home this afternoon Patient to be discharged after scheduled IV antibiotics Discharge with course of PO antibiotics to start the following day Expected clinical course reviewed, all questions answered Total Time Total Time Spent Total Time Spent (In Minutes): 29 Discharge Plan Discharge Items Patient Disposition: Home - Self-Care Reason For Visit: Calculus of Kidney Discharge Diagnosis: Calculus of kidney Activity: Per Instructions section Lifting: No more than 25 pounds Bathing Comment: Okay to shower after discharge Sexual Activity: When tolerated Exercise/Sports: Gradually increase as tolerated Non-emergency contact: Surgeon and Urologist Call non-emergency contact if: your pain is not controlled and your temperature is above 101 Follow-up/Referrals: José Miguel Ohara [Primary Care Provider] - Diet: Carb Consistent or DM2 Addtl Attending Provider Instructions: Please take all medications as prescribed and keep all follow-ups as scheduled. Please call our office at [phone] with any questions, concerns or need to reschedule appointments for any reason. We are happy to assist you. While you have a ureteral stent in place: Some discomfort is normal. Certain movements may trigger pain or a feeling that you need to urinate. You may also feel mild soreness or pressure before or during urination. These symptoms should go away a few days after the stent is removed. Your urine may be slightly pink or red. This is due to bleeding caused by minor irritation from the stent. This may happen on and off while you have the stent, it is not harmful and is to be expected. Medication to help minimize discomfort or bladder spasms, or to prevent infection may be prescribed. Take this as directed. Drink plenty of fluids to help flush out your urinary tract. If you go home with a catheter, wash with soapy water and a fresh washcloth twice daily. We recommend mild bar soap such as Dial or Dove. When to call [facility] at [phone]: Your urine contains heavy blood clots You are constantly leaking urine Fever of 101F or higher, chills, nausea, or vomiting Your pain is not relieved with medication The end of the stent comes out of your urethra Pending Studies at Discharge: No Stand-Alone Forms: My mPura, Smoking Cessation Medications and DC Order Prescriptions: New cefdinir 300 mg capsule 300 mg PO BID 5 Days Qty: 10 0RF Continued famotidine [Pepcid] 20 mg tablet 20 mg PO HS albuterol sulfate [Ventolin HFA] 90 mcg/actuation HFA aerosol inhaler 2 puff inhalation Q6H PRN (Reason: sob) Patient Comments: Has not had to use pantoprazole 40 mg tablet,delayed release (DR/EC) 40 mg PO BID Qty: 60 0RF cholecalciferol (vitamin D3) 50 mcg (2,000 unit) capsule 50 mcg PO QAM Rx Instructions: Unable to verify OTC meds at this date/time cyanocobalamin (vitamin B-12) 500 mcg tablet 1,000 mcg PO QAM Rx Instructions: Unable to verify OTC meds at this date/time acetazolamide 500 mg capsule, extended release 500 mg PO BID sertraline 100 mg tablet 200 mg PO QAM topiramate 200 mg tablet 200 mg PO BID Januvia 50 mg tablet 50 mg PO HS ferrous sulfate [iron] 325 mg (65 mg iron) Tablet 325 mg PO QPM lisinopril 5 mg tablet 5 mg PO HS hyoscyamine sulfate 0.125 mg tablet 0.125 mg PO QID buspirone 30 mg tablet 30 mg PO BID ascorbic acid (vitamin C) [Vitamin C With Uyen Hips] 500 mg Tablet Extended Release 500 mg PO BID Rx Instructions: Unable to verify OTC meds at this date/time atorvastatin 10 mg tablet 10 mg PO HS hydrocortisone 2.5 % cream with perineal applicator 1 applic AR BID PRN (Reason: hemorrhoids) clindamycin phosphate 1 % lotion 1 applic topical DAILY PRN (Reason: inflammed boils) Rx Instructions: Apply to the lesions BID when inflamed. metformin 500 mg tablet extended release 24 hr 1,000 mg PO QAM solifenacin [Vesicare] 10 mg tablet 10 mg PO QAM Discharge Orders: Discharge Order (Routine); Ordered 06/07/24 Ordered By: Mary Ziegler/Other Patient Handouts: Thrombocytopenia Admission Data Admit Date/Time: 06/06/24 14:14 Attending Provider: Burt Trujillo Admit Provider: Burt Trujillo Primary Care Provider: José Miguel Ohara Other Interventions: Discharge Summary Assessment (RN) Last Done: 06/07/24 16:36 Coding Level of Care Code 78427 IN/OBS DISCH 30 MIN/LESS Diagnoses Staghorn calculus N20.0
== END 2024-06-07 19:10 | disposition home or self-care (01) ==
LOC: 3W 10:16 → ASU 10:16

== ENCOUNTER 2024-07-11 07:11 | Observation (INO) ==
--- NOTE | 2024-07-07 08:42 | Anesthesiology Consultation ---
Date of Service July 07, 2024 Assessment & Plan (1) Encounter for pre-operative examination: Plan - check BSG am DOS. - ER 07/04/24: "...not feeling like her regular self, having malaise and urinary frequency, urgency and dysuria...decreased HGB...hypocalcemia...positive for uti...12 lead ecg shows NSR with no ST depression or elevation...discharge patient home..." Surgeon's office made aware of UTI. EKG fax incorrectly labeled as stress test per [place]. "Procedure ECG-CV. Report type ECG." [facility] staff with EKG team advised they were unable to fully confirm if a stress test was done however they did not see a 07/04/24 stress test in chart nor documented in ER records. They advised [facility] team was not there today. - Case discussed in detail wiht Dr. Gerardo who advised patient is acceptable to proceed. - Anesthesia notation 06/07/24: "...sore throat. She is POD #1 from a urology procedure (has had multiple similar procedures in past) that required general anesthesia. Per anesthesia team that cared for her yesterday there was no difficulty with intubation or extubation. She had had concerns previously with dry throat and mouth perioperatively. Went to see patient on floor as it appeared she might be discharged from the hospital today. Patient stated she had a sore throat but denied any swallowing difficulty. She had been eating red popsicles so tongue and throat were coated by dye. I did note a small area of irritation near the posterior aspect of the hard palate. No ulceration noted. Had a long discussion with patient about irritation from the endotracheal tube and its natural course..." - Per assessment coordinator on 07/05/24: No known infectious disease contacts, current infectious disease symptoms in past 10 days or COVID positive test result in the past 30 days. Chart Review Chart Review: Acceptable Risk for Surgery (pending anesthesiologist evaluation am DOS) and Patient NOT seen in Pre Admission Testing History Surgery Operation Date: 07/11/24 09:10 Proposed Procedures p Cystoscopy, Ureteronephroscopy, Retrograde Pyelogram, Possible Ureteral Dilation, Laser Destruction or Extraction of the Stone, Insertion or Exchange of Stent Catheter - Left - Burt Trujillo MD Height/Weight Height: 5 ft 3 in Weight: 186.426 kg Allergies Allergy/AdvReac Type Severity Reaction Status Date / Time adhesive tape Allergy Severe Redness of Verified 07/05/24 13:11 Skin Penicillins Allergy Severe Rash Verified 07/05/24 13:11 aspirin AdvReac Severe Advised to Verified 07/05/24 13:11 avoid "due to angioma" blood thinner AdvReac Severe Advised to Uncoded 07/05/24 13:11 avoid "due to angioma" Medications Home Medications Medication Instructions Recorded Confirmed Last Taken cholecalciferol (vitamin D3) 50 50 mcg PO QAM 11/18/20 07/05/24 05/10/24 09:00 mcg (2,000 unit) capsule cyanocobalamin (vitamin B-12) 500 1,000 mcg PO QAM 11/18/20 07/05/24 05/10/24 09:00 mcg tablet acetazolamide 500 mg 500 mg PO BID 09/23/22 07/05/24 06/05/24 12:00 capsule,extended release sertraline 100 mg tablet 200 mg PO QAM 09/23/22 07/05/24 06/05/24 12:00 topiramate 200 mg tablet 200 mg PO BID 09/23/22 07/05/24 05/15/24 21:00 famotidine 20 mg tablet (Pepcid) 20 mg PO HS 11/04/22 07/05/24 06/04/24 23:00 sitagliptin phosphate 50 mg tablet 50 mg PO HS 12/01/22 07/05/24 06/04/24 23:00 (Januvia) ferrous sulfate 325 mg (65 mg 325 mg PO QPM 04/23/23 07/05/24 06/05/24 18:00 iron) tablet (iron) lisinopril 5 mg tablet 5 mg PO HS 04/23/23 07/05/24 06/04/24 23:00 pantoprazole 40 mg tablet,delayed 40 mg PO BID #60 tabs 08/05/23 07/05/24 06/05/24 23:00 release ascorbic acid (vitamin C) 500 mg 500 mg PO BID 04/21/24 07/05/24 05/10/24 08:00 tablet,extended release (Vitamin C With Uyen Hips) atorvastatin 10 mg tablet 10 mg PO HS 04/21/24 07/05/24 06/04/24 23:00 buspirone 30 mg tablet 30 mg PO BID 04/21/24 07/05/24 06/05/24 23:30 clindamycin phosphate 1 % lotion 1 applic topical DAILY PRN 04/21/24 07/05/24 06/03/24 18:00 inflammed boils hydrocortisone 2.5 % topical cream 1 applic NE BID PRN hemorrhoids 04/21/24 07/05/24 05/15/24 21:00 with perineal applicator hyoscyamine sulfate 0.125 mg tablet 0.125 mg PO QID 04/21/24 07/05/24 06/05/24 22:00 metformin 500 mg tablet,extended 1,000 mg PO QAM 05/03/24 07/05/24 06/05/24 12:00 release 24 hr solifenacin 10 mg tablet (Vesicare) 10 mg PO QAM 05/30/24 07/05/24 Unknown nitrofurantoin 100 mg PO BID 07/05/24 07/05/24 Unknown monohydrate/macrocrystals 100 mg capsule (Macrobid) sulfamethoxazole 400 1 tab PO BID 7 days #14 tabs 07/07/24 Unknown mg-trimethoprim 80 mg tablet (Bactrim) Past Medical History Medical History (Updated 07/07/24 @ 09:04 by Alexandria Bangura PA-C) 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 has had these get infected in past with purulent drainage requiring abx. has clindaymycin ointment to use. Chronic sinusitis Depression Diabetes mellitus, type 2 NIDDM GERD (gastroesophageal reflux disease) Hemorrhoids occasional bleeding History of postoperative nausea and vomiting History of recent fall 05/04/24, while amb w/ walker while inpt at [facility]. no loc, no head strike History of recent hospitalization Admitted after 05/16/24 urology surgery; D/C 05/19/24; received 1 unit PRBCs 05/18/24 History of recurrent UTI (urinary tract infection) Hx of colonic polyps Hx of necrotizing fasciitis (2016) unknown cause. IBS (irritable bowel syndrome) Iron deficiency anemia monitored during inpt admission 04/2024. Iron was low; pt had been off of iron supplement and it was resumed. No signs of GI bleed. Per D/C summary: "She denies any dizziness. No hypotension. No indication for blood transfusion. Pt advised to f/u with PCP outpt. During 05/2024 admission, pt received 1 unit PRBCs on 05/18/24 and advised to f/u with PCP 1 week after hospital D/C Left nephrolithiasis Legally blind Morbid obesity with BMI of 70 and over, adult OCD (obsessive compulsive disorder) severe - pt. would only participate in PAT phone assessment with "ita" from Dr. Trujillo office on phone with her Orthopnea occasional VANDANA (obstructive sleep apnea) Bipap at night; not using currently Osteoarthritis Overactive bladder Pseudotumor cerebri follows with [facility] Staghorn calculus current - left side (had procedure 03/2024 in [place] and 04/2024 and 05/2024 [facility] for this) Thrombocytopenia (04/2024) dx during 04/[address] [facility]; mild; monitoring Ureteral stent present (06/06/24) UTI (urinary tract infection) (07/04/24) seen at [facility] ED on 07/04/24, Urology office to send records, pt. given script for macrobid, will start first dose tonight Past Family History Family History Other Bladder cancer No family history of adverse response to anesthesia Past Surgical History Surgical History History of x2 History of cholecystectomy History of cystoscopy (06/06/24) multiple cystoscopy and lithotripsy/ stent procedures. most recent 06/06/24 History of open reduction and internal fixation (ORIF) procedure LLE - as a chhild History of surgery (2016) RLE x 7 surgeries r/t necrotizing fasciitis History of tonsillectomy Hx of colonoscopy with polypectomy (05/2023) Social History Smoking Status: Former smoker Do You Dip or Chew Tobacco: No Smoking End Date: quit 2017 Hx Alcohol Use: No Hx Substance Use: No substance use type: does not use Testing Laboratory Results 07/04/24 WBC: 5.7 H/H: 06/02 PLATELETS: 115,000 SODIUM: 141 POTASSIUM: 3.5 CHLORIDE: 116 CO2: 16 BUN: 23 CREATININE: 1.9 GLUCOSE: 112 PT: 14 PTT: 28 INR: 1.2 UA: positive nitrite, large leukocyte esterase, large blood Urine culture: 25,000 cfu/ml Klebsiella pneumoniae. 25,000 cfu/ml Proteus mirabilis Electrocardiogram Date: 07/04/24 Sinus rhythm, rate [address] deviation and moderate T Wave abnormality, consider anterolateral ischemia ST deviation and moderate T wave abnormality, consider inferior ischemia Compared to 05/02/24 EKG, ventricular rate has decreased, atrial enlargement criteria are no longer present. T wave are more abnormal Chest X-Ray Date: 07/04/24 Heart size is mildly enlarged despite the AP view. No acute pulmonary disease. Stable age indeterminant right mid-ribs fractures. No significant interval changes.
--- NOTE | 2024-07-11 08:16 | History & Physical Report ---
Date of Service July 11, 2024 Assessment & Plan (1) Staghorn calculus: Plan left staghorn calculus - plan for next stage ureteroscopy, laser lithotripsy, stent exchange -Risks, benefits, expectations reviewed Plan for admission after surgery History of Present Illness Primary Care Provider: José Miguel Ohara 48-year-old returns for the next stage of her multistage of left ureteroscopy and laser lithotripsy Has tolerated her first procedures well Allergies Allergy/AdvReac Type Severity Reaction Status Date / Time adhesive tape Allergy Severe Redness of Verified 07/11/24 07:49 Skin Penicillins Allergy Severe Rash Verified 07/11/24 07:49 aspirin AdvReac Severe Advised to Verified 07/11/24 07:49 avoid "due to angioma" blood thinner AdvReac Severe Advised to Uncoded 07/11/24 07:49 avoid "due to angioma" Home Medications Medication Instructions Recorded Confirmed Type cholecalciferol (vitamin D3) 50 50 mcg PO QAM 11/18/20 07/11/24 History mcg (2,000 unit) capsule cyanocobalamin (vitamin B-12) 500 1,000 mcg PO QAM 11/18/20 07/11/24 History mcg tablet acetazolamide 500 mg 500 mg PO BID 09/23/22 07/11/24 History capsule,extended release sertraline 100 mg tablet 200 mg PO QAM 09/23/22 07/11/24 History topiramate 200 mg tablet 200 mg PO BID 09/23/22 07/11/24 History famotidine 20 mg tablet (Pepcid) 20 mg PO HS 11/04/22 07/11/24 History sitagliptin phosphate 50 mg tablet 50 mg PO HS 12/01/22 07/11/24 History (Januvia) ferrous sulfate 325 mg (65 mg 325 mg PO QPM 04/23/23 07/11/24 History iron) tablet (iron) lisinopril 5 mg tablet 5 mg PO HS 04/23/23 07/11/24 History pantoprazole 40 mg tablet,delayed 40 mg PO BID #60 tabs 08/05/23 07/11/24 Rx release ascorbic acid (vitamin C) 500 mg 500 mg PO BID 04/21/24 07/11/24 History tablet,extended release (Vitamin C With Uyen Hips) atorvastatin 10 mg tablet 10 mg PO HS 04/21/24 07/11/24 History buspirone 30 mg tablet 30 mg PO BID 04/21/24 07/11/24 History clindamycin phosphate 1 % lotion 1 applic topical DAILY PRN 04/21/24 07/11/24 History inflammed boils hydrocortisone 2.5 % topical cream 1 applic [place] BID PRN hemorrhoids 04/21/24 07/11/24 History with perineal applicator hyoscyamine sulfate 0.125 mg tablet 0.125 mg PO QID 04/21/24 07/11/24 History metformin 500 mg tablet,extended 1,000 mg PO QAM 05/03/24 07/11/24 History release 24 hr solifenacin 10 mg tablet (Vesicare) 10 mg PO QAM 05/30/24 07/11/24 History sulfamethoxazole 400 1 tab PO BID 7 days #14 tabs 07/07/24 07/11/24 Rx mg-trimethoprim 80 mg tablet (Bactrim) Past Med/Surg History Problem List Encounter for pre-operative examination Normal anion gap metabolic acidosis Fall 05/04/24 Thrombocytopenia Anemia Ureteral stent present UTI (urinary tract infection) Hemorrhoids occasional bleeding Staghorn calculus Left nephrolithiasis Nausea Diarrhea 05/10/23 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 Iron deficiency anemia Heme positive stool 12/01/22 GERD (gastroesophageal reflux disease) IBS (irritable bowel syndrome) Type 2 diabetes mellitus Cellulitis 11/04/22 Legally blind VANDANA (obstructive sleep apnea) BiPAP UTI symptoms Obsessive compulsive disorder Anxiety and depression Frequency of micturition Urgency of urination Arthritis (Acute) Asthma (Acute) Psychological disorder (Acute) Sensation of pressure in bladder area (Acute) History of recurrent UTIs Medical History UTI (urinary tract infection) (07/04/24) seen at [facility] ED on 07/04/24, Urology office to send records, pt. given script for macrobid, will start first dose tonight History of recent hospitalization Admitted after 05/16/24 urology surgery; D/C 05/19/24; received 1 unit PRBCs 05/18/24 Boil of groin pt described hx of "boils" around perineum area, states worsen with stress. has had these get infected in past with purulent drainage requiring abx. has clindaymycin ointment to use. Hx of colonic polyps History of postoperative nausea and vomiting Thrombocytopenia (04/2024) dx during 04/2024 admission [facility]; mild; monitoring History of recent fall 05/04/24, while amb w/ walker while inpt at [facility]. no loc, no head strike Arthritis Left nephrolithiasis Hemorrhoids occasional bleeding Ureteral stent present (06/06/24) Iron deficiency anemia monitored during inpt admission 04/2024. Iron was low; pt had been off of iron supplement and it was resumed. No signs of GI bleed. Per D/C summary: "She denies any dizziness. No hypotension. No indication for blood transfusion. Pt advised to f/u with PCP outpt. 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 IBS (irritable bowel syndrome) GERD (gastroesophageal reflux disease) Pseudotumor cerebri follows with [facility] Neurology Orthopnea occasional Overactive bladder Anxiety severe Depression OCD (obsessive compulsive disorder) severe - pt. would only participate in PAT phone assessment with "ita" from Dr. Trujillo office on phone with her Morbid obesity with BMI of 70 and over, adult Asthma well controlled Surgical History Hx of colonoscopy with polypectomy (05/2023) History of cystoscopy (06/06/24) multiple cystoscopy and lithotripsy/ stent procedures. most recent 06/06/24 History of open reduction and internal fixation (ORIF) procedure LLE - as a chhild History of tonsillectomy History of x2 History of cholecystectomy History of surgery (2016) RLE x 7 surgeries r/t necrotizing fasciitis Family History Other Bladder cancer No family history of adverse response to anesthesia Social History Smoking Status: Former smoker Tobacco Type: Cigarettes Smoking End Date: quit 2017; Second Hand Exposure: No; Do You Dip or Chew Tobacco: No; Tobacco Cessation Education Requested by Patient: No Hx Alcohol Use: No Hx Substance Use: No Preferred Language: Mauritanian Communication Ability: Impaired Communication Ability Comment: extremely anxious Visual Impairment: Blindness Cylinder Inspector Required: No Beliefs That Will Affect Care: None Current Living Situation: Family and Significant Other Current Living Situation Comment: son and by Other Information That Helps Us Care for You: No Feels Safe at Home: Yes Safety Concerns: Feels Safe At This Time Assistive Devices: Cane and CPAP Assistive Devices Comment: bipap Physical Exam Physical Exam: Obese Constitutional: well developed and well nourished Neck: neck nontender Respiratory: normal respiratory effort; no respiratory distress and does not use accessory muscles Cardiovascular: Rate/Rhythm: regular rate Vessels: radial pulses present Extremities: no edema Gastrointestinal (Abdomen): Inspection/Auscultation: abdomen normal to inspection Percussion/Palpation: abdomen soft; abdomen nontender and no guarding Musculoskeletal: Head/Neck/Chest: normocephalic and head atraumatic Extremi ties: extremities normal to inspection Skin: no rashes and no lesions Trauma: no evidence of skin trauma Neurologic: awake; not obtunded Speech / Cognition: normal speech Motor/Sensory: no tremor Psychiatric: Orientation: alert and oriented x 3 Lymphatic: no lymphadenopathy Results & Data Vital Signs (Past 12 Hours) Vital Signs Temp Pulse Resp BP Pulse Ox O2 Del Method 07/11/24 07:48 37 C 82 20 177/61 H 99 Room Air
[2024-07-11] MEDS: LR 15ML/HR IV SCH (08:28)
[2024-07-11] MEDS ORDERED: MIDAZOLAM HCL 1 MG/ML 2ML VIAL ONE (08:35)
[2024-07-11] MEDS ORDERED: fentaNYL citrate PF 100 MCG/2 ML VIAL ONE (08:35)
[2024-07-11 08:49] LABS: Hematocrit (blood only) 29.5 % (37.0-47.0); Hemoglobin 8.3 g/dl (12.0-16.0); Mean Corpuscular Hgb Conc 28.1 g/dL (32.0-36.0); Mean Corpuscular Volume 85.3 fL (80.0-100.0); Mean Platelet Volume 9.8 fL (9.4-12.4); Platelet Count 153 K/uL (130-400); RDW Coefficient of Variation 17.2 % (11.5-14.5); Red Blood Count 3.46 M/uL (4.20-5.40); White Blood Count 4.99 K/ul (4.8-10.8)
[2024-07-11] MEDS ORDERED: fentaNYL citrate PF 100 MCG/2 ML VIAL IV PRN (09:09)
[2024-07-11] MEDS ORDERED: ATROPINE SULFATE 0.1 MG/ML 10ML SYR IV PRN (09:09)
[2024-07-11] MEDS ORDERED: PROMETHAZINE HCL 6.25 MG in SODIUM CHLORIDE 0.9% 50 ML IV PRN (09:09)
[2024-07-11] MEDS: cefTRIAXone SODIUM 1,000 MG MINI-B 50 ML IV SCH (09:12)
[2024-07-11] MEDS ORDERED: LIDOCAINE 2% 2 ML VIAL/AMP(20MG/ML) INFIL ONE (09:30)
[2024-07-11] MEDS ORDERED: LARYING-O-JET KIT (LTA) ONE (09:30)
[2024-07-11] MEDS ORDERED: ROCURONIUM BROMIDE 10 MG/ML 5 ML VIAL IV ONE (09:30)
[2024-07-11] MEDS ORDERED: DEXAMETHASONE SOD INJ 4 MG/ML VIAL ONE (09:30)
[2024-07-11] MEDS ORDERED: PROPOFOL IV EMULSION 10 MG/ML 20 ML VIAL IV ONE (09:30)
[2024-07-11] MEDS ORDERED: ONDANSETRON INJ 2 MG/ML 2 ML VIAL ONE (09:30)
[2024-07-11] MEDS ORDERED: ePHEDrine sulfate 50 MG/5 ML SYR ONE (09:35)
--- NOTE | 2024-07-11 12:19 | Anesthesiology Progress Note ---
Date of Service July 11, 2024 Anesthesia Post Procedure Vital Signs Vital Signs: Temp Pulse Resp BP Pulse Ox O2 Del Method O2 Flow Rate 07/11/24 11:55 82 18 132/66 97 Room Air 07/11/24 11:40 82 16 135/67 98 Room Air 07/11/24 11:20 36.4 C L 83 18 116/57 L 97 Room Air 07/11/24 11:10 82 20 105/72 99 Room Air 07/11/24 11:00 80 18 119/49 L 100 Oxymask 3 07/11/24 10:51 36.4 C L 92 H 20 97/64 L 98 Oxymask 6 07/11/24 08:45 128/61 07/11/24 07:48 37 C 82 20 177/61 H 99 Room Air Transfer of Care Handoff Completed per policy Notes Mental Status: alert / awake / arousable Patient Amnestic to Procedure: Yes Nausea / Vomiting: adequately controlled Pain: adequately controlled Airway Patency, RR, SpO2: stable & adequate BP & HR: stable & adequate Hydration State: stable & adequate Anesthetic Complications: no major complications apparent
[2024-07-11] MEDS ORDERED: HYDROcodone/ACETAMINOPHEN 10/325 TAB PO PRN (12:22)
[2024-07-11] MEDS ORDERED: HYDROCORTISONE HC 2.5% CRM 30GM TUBE EXT PRN (12:22)
[2024-07-11] MEDS ORDERED: PHARMACY GLYCEMIC MGMT CONSULT PRN (12:22)
[2024-07-11] MEDS ORDERED: NON-FORMULARY MEDICATION (Clindamycin Phosphate 1 % lotion) TOP PRN (12:22)
[2024-07-11] MEDS ORDERED: GLUCOSE 10 TAB/TUBE PO PRN (13:30)
[2024-07-11] MEDS ORDERED: DEXTROSE 50% 50 ML SYRINGE IV PRN (13:30)
[2024-07-11] MEDS ORDERED: GLUCOSE 40% GEL 15 GM TUBE PO PRN (13:30)
[2024-07-11] MEDS ORDERED: CARBOHYDRATES FOR HYPOGLYCEMIA PO PRN (13:30)
[2024-07-11] MEDS ORDERED: GLUCAGON FOR INJ 1 MG VIAL IM PRN (13:30)
[2024-07-11] MEDS: SODIUM CHLORIDE 0.9% 1,000 ML IV SCH (13:47)
[2024-07-11] MEDS: HYOSCYAMINE SULFATE 0.125 MG TAB PO SCH ×2 (14:25→21:01)
--- NOTE | 2024-07-11 14:29 | Pharmacy Report ---
Pharmacy Glycemic Short Note 2 - Date of Service July 11, 2024 - Glycemic Short BSG Results (Last 24 hours): 07/11/24 07/11/24 07:43 11:27 POC Glucose 112 H 122 H OUTPATIENT ANTIDIABETIC REGIMEN: * metformin 1 gm bid, januvia 50 mg hs ASSESSMENT: * 48 year old female s/p procedure, POD 0 - pharmacy consulted for glycemic management. Patient only on oral agents outpatient. Postop BSG 122 mg/dL - dexamethasone was pulled in OR, however unsure if given. Will start conservatively with novolog since patient is insulin naive. PLAN FOR INPATIENT GLYCEMIC CONTROL: * Hold outpatient oral diabetes medications * Basal insulin * Lantus - hold * Bolus insulin * NovoLog per scale ACHS or Q6hrs while NPO * Goal Range: Low 110 mg/dL - High 140 mg/dL * Correction Factor: 20 mg/dL/unit * Nutritional / Prandial insulin per carb ratio of 1 unit per 10 grams CHO consumed
--- NOTE | 2024-07-11 15:45 | Fluoroscopy Report ---
FL KUB CLINICAL HISTORY: LEFT COMPARISON STUDY: KUB May 26, 2024. Fluoroscopic images from left retrograde exam June 06, 2024. FLUOROSCOPY TIME: 33 seconds. Ka,r: 22.40 mGy FLUOROSCOPIC IMAGES: 2 FINDINGS: Fluoroscopy was provided during left retrograde exam, lithotripsy and left ureteral stent e xchange. Stent is well-positioned. IMPRESSION: Fluoroscopy provided during left retrograde exam, lithotripsy and left ureteral stent ex change. ACT 112: Negative or not required by law. Electronically signed by: Taras Galloway M.D. 07/11/2024 3:44 PM
[2024-07-11] MEDS ORDERED: PHENAZOPYRIDINE HCL 200 MG TAB PO PRN (16:09)
[2024-07-11] MEDS: INSULIN ASPART PER UNIT CHARGE SC SCH (17:14)
[2024-07-11] MEDS: FERROUS SULFATE 325 MG TAB PO SCH (17:15)
[2024-07-11] MEDS ORDERED: SITagliptin PHOSPHATE 25 MG TAB PO SCH (21:00)
[2024-07-11] MEDS ORDERED: FERROUS SULFATE 325 MG TAB PO SCH (21:00)
[2024-07-11] MEDS: lisinopril 5 MG TAB PO SCH (22:30)
[2024-07-11] MEDS: FAMOTIDINE 20 MG TAB PO SCH (22:31)
[2024-07-11] MEDS: TOPIRAMATE 100 MG TAB PO SCH (22:33)
[2024-07-11] MEDS: ASCORBIC ACID 500 MG TAB PO SCH (22:34)
[2024-07-11] MEDS: ATORVASTATIN 10 MG TAB PO SCH (22:34)
[2024-07-11] MEDS: busPIRone 15 MG TAB PO SCH (22:35)
[2024-07-11] MEDS: PANTOprazole 40 MG TAB PO SCH (22:35)
[2024-07-11] MEDS: acetaZOLAMIDE 500 MG CAPCR PO SCH (22:36)
[2024-07-12 07:08] VITALS: RESP 18
[2024-07-12] MEDS ORDERED: metFORMIN HCL ER 500 MG TABCR PO SCH (09:00)
[2024-07-12 09:11] LABS: Calcium 7.9 mg/dl (8.6-10.3); Potassium 4.3 mmol/L (3.5-5.1)
[2024-07-12 09:17] LABS: Creatinine Clr Calc Pharmacy 52.6 ml/min; Est GFR (African American) 30.5 ml/min; Est GFR (Non-African American) 26.3 ml/min
[2024-07-12 09:27] LABS: Hematocrit (blood only) 24.6 % (37.0-47.0); Hemoglobin 7.5 g/dl (12.0-16.0); Mean Corpuscular Hgb Conc 30.5 g/dL (32.0-36.0); Mean Platelet Volume 9.7 fL (9.4-12.4); Platelet Count 131 K/uL (130-400); RDW Coefficient of Variation 17.5 % (11.5-14.5); RDW Standard Deviation 51.9 fL (36.4-46.3); White Blood Count 7.01 K/ul (4.8-10.8)
--- NOTE | 2024-07-12 10:04 | Urology Progress Note ---
Date of Service July 12, 2024 Assessment & Plan (1) Staghorn calculus: (2) Ureteral stent present: Plan - POD #1 s/p Cystoscopy, Left Ureteroscopy, Laser Lithotripsy, Exchange of Left Stent Catheter - Afebrile with stable vitals. - Labs today reviewed - No leukocytosis. Hemoglobin 7.5 and Creatinine 2.14 - as expected given her surgery and the IV fluids. - Continues on Ceftriaxone. - Reports minimal pain. - Voiding spontaneously. Plan: - Continue supportive care. - Continue antibiotic therapy. - OK to d/c IV fluids. - Plan for continued observation and potential discharge home this afternoon after scheduled IV antibiotics Update: - Pt reassessed this afternoon. - Remains afebrile and hemodynamically stable. - Patient is stable for discharge home today. - Discharge with course of PO antibiotics to start the following day. - Will arrange outpatient follow-up. - Expected clinical course reviewed, all questions answered. Plan reviewed with Dr. Trujillo. Admission and Anticipated Discharge Date Admission Date: July 11, 2024 Subjective Pt seen at bedside this AM Awake, sitting in bedside chair on arrival No acute distress Tolerating the stent with minimal discomfort Voiding spontaneously, report some frequency and leakage Denies dysuria or hematuria Denies f/c/n/v Denies CP/SOB Tolerating diet Ambulating without issue Review of Systems Constitutional: as per Subjective / HPI Gastrointestinal: as per Subjective / HPI Genitourinary: as per Subjective / HPI Physical Exam Constitutional: + obese; no acute distress Eyes: Legally blind Respiratory: no respiratory distress and no labored breathing Skin: Warm and dry Neurologic: moves all extremities and awake Psychiatric: Orientation: alert and oriented x 3 Affect: + anxious affect Results & Data Vital Signs (Past 12 Hours) Vital Signs Temp Pulse Pulse Resp BP BP Pulse Ox 07/12/24 07:44 36.4 C L 82 18 115/74 100 07/12/24 07:07 36.5 C 82 18 97/58 L 100 07/12/24 04:29 36.8 C 94 H 20 112/64 97 07/11/24 23:40 36.9 C 88 20 131/66 99 O2 Del Method 07/12/24 07:44 Room Air 07/12/24 07:07 Room Air 07/12/24 04:29 Room Air 07/11/24 23:40 Room Air PG Care Time/CCT Total # of Minutes Spent Total Time Spent with Patient: Total time spent is greater than 50% in coordination of care (as documented) at patient's floor/unit and/or counseling patient: Coding Level of Care Code 27846 SUB INP/OBS CARE 2/35MIN Diagnoses Staghorn calculus N20.0 Ureteral stent present Z96.0
[2024-07-12] MEDS: SERTRALINE HCL 100 MG TABLET PO SCH (10:57)
[2024-07-12] MEDS: OXYBUTYNIN CHLORIDE XL 5 MG TABCR PO SCH (10:57)
[2024-07-12] MEDS: CYANOCOBALAMIN (B-12) 500 MCG TABLET PO SCH (10:58)
[2024-07-12] MEDS: CHOLECALCIFEROL 25 MCG (1000 UNITS) TAB PO SCH (10:59)
[2024-07-12] MEDS: cefTRIAXone SODIUM 1,000 MG/50 ML BAG IV SCH (11:00)
--- NOTE | 2024-07-12 12:19 | Pharmacy Report ---
Glycemic Ortho Sign Off Note - Date of Service July 12, 2024 - Scope Glycemic Pharmacist consulted for glycemic control and to write orders per [facility] inpatient glycemic control protocol. - Objective Accuchecks BSG (last 24hrs):: 07/11/24 07/11/24 07/12/24 16:44 20:43 07:39 Glucose POC Glucose 146 H 131 H 115 H 07/12/24 07/12/24 08:19 11:39 Glucose 118 H POC Glucose 122 H - Assessment * Pt is maintained on oral antidiabeticagent[s]as anoutpatient with excellent control per recent A1c * Oral agents are not recommended for inpatient use d/t drug interactions, changing PO intake, and difficulty titrating for acute hyper/hypoglycemia. * Recommended regimen for inpatient use is SQ insulin * Low stress weight based insulin dosing appropriate since patient has minimal risk factors for insulin resistance (i.e. no steroids). * Goal is to maintain BSGs <200 mg/dl (ideally <150 mg/dl) to prevent post op complications * Patient previously refusing all insulin, utilized novolog with CF only at this time - Plan For Inpatient Glycemic Control * Basal insulin * Not needed based on A1c, pre-op BSGs, and minimal risk factors for insulin resistance * Bolus insulin * Utilize low stress weight based NovoLog parameters per scale ACHS * Pharmacy has entered glycemic orders and is signing off of the glycemic consult. We will no longer be making adjustments to inpatient regimen. Please feel free to re-consult if needed. Thank you.
[2024-07-12 12:43] VITALS: BP 127/78; PULSE 86; TEMP 97.9; O2SAT 99
--- NOTE | 2024-07-12 13:01 | Operative Report ---
PG Post Operative Report Pre & Post Diagnosis Operation Date: 07/11/24 09:10 Pre-Op Diagnosis: Calculus of Kidney Post-Op Diagnosis: Calculus of Kidney I identified the patient and participated in the time-out.: Yes Procedure Operation Date: 07/11/24 09:10 Actual Procedures p Cystoscopy, Ureteronephroscopy, Retrograde Pyelogram, Ureteral Dilation, Laser Destruction of the Stone,(Left) - Burt Trujillo MD s Exchange of Stent Catheter - Left(Left) - Burt Trujillo MD Surgeon Burt Trujillo MD Gas Meter Checker None Estimated Blood Loss 0 Findings Consistent with Post-Op Diagnosis Specimens None Description of Procedure The patient was identified in the preoperative holding area, appropriate informed consents were reviewed and completed and the patient was transferred to the operative suite. Upon arrival, appropriate antibiotics and anesthesia were administered and the patient was placed in dorsal lithotomy position and prepped and draped in sterile fashion. Indicated as a 21 Slovak cystoscope with 30 degree was visual after repair inspection revealed a healthy-appearing urethra and bladder. A left ureteral stent was easily identified protruding from the orifice. The distal aspect the stent was grasped and withdrawn to the meatus. I intubated the stent with a sensor wire and this advanced the kidney without difficulty. I then used a 10 Slovak double-lumen catheter introduced a second wire into the kidney. A ureteral access sheath was placed into the proximal ureter. I then advanced a single use flexible ureteroscope. Of note, this patient has had numerous ureteroscopy's in an effort to clear a large staghorn calculus. Full inspection of the kidney was conducted before any treatment initiated. Her upper upper mid and lower mid pole are all clear of stone debris. The renal pelvis is clear of stone debris. The lower pole has fragmented stone filling a bifid calyx. I guided my scope into this lower pole and utilized a 200 m thulium laser fiber to begin fragmentation. Utilizing fluoroscopy to help guide my treatment, I gradually work my way through the entire calyx clearing it of any large fragments. [place] seems to hold some of the stone debris in the lower pole. I attempted to flush as much of this out of the lower pole as possible and a substantial amount of stone was cleared entirely through the access sheath. There is still debris and rubble sitting in the lower pole but no large fragments were identified. I performed a careful exit ureteroscopy while simultaneously withdrawing the access sheath. I then placed a new stent to conclude the case. She was reversed of anesthesia and taken to the recovery room in stable condition. At this stage, I believe her stone has been adequately treated and she has completed our anticipated staged ureteroscopic interventions. I attest to the content of the Intraoperative Record and any orders documented therein. Any exceptions are noted below.
--- NOTE | 2024-07-12 14:32 | Discharge Summary ---
Date of Service July 12, 2024 Admission HPI Per Admitting Provider 48-year-old returns for the next stage of her multistage of left ureteroscopy and laser lithotripsy Has tolerated her first procedures well Admission Exam Per Admitting Provider Physical Exam: Obese Constitutional: well developed and well nourished Neck: neck nontender Respiratory: normal respiratory effort; no respiratory distress and does not use accessory muscles Cardiovascular: Rate/Rhythm: regular rate Vessels: radial pulses present Extremities: no edema Gastrointestinal (Abdomen): Inspection/Auscultation: abdomen normal to inspection Percussion/Palpation: abdomen soft; abdomen nontender and no guarding Musculoskeletal: Head/Neck/Chest: normocephalic and head atraumatic Extremities: extremities normal to inspection Skin: no rashes and no lesions Trauma: no evidence of skin trauma Neurologic: awake; not obtunded Speech / Cognition: normal speech Motor/Sensory: no tremor Psychiatric: Orientation: alert and oriented x 3 Lymphatic: no lymphadenopathy Principal Diagnosis Calculus of Kidney Discharge Exam Constitutional + obese; no acute distress Respiratory no respiratory distress and no labored breathing Neurologic moves all extremities and awake Psychiatric Orientation: alert and oriented x 3 Affect: + anxious affect Discharge Data Allergies Allergy/AdvReac Type Severity Reaction Status Date / Time adhesive tape Allergy Severe Redness of Verified 07/11/24 07:49 Skin Penicillins Allergy Severe Rash Verified 07/11/24 07:49 aspirin AdvReac Severe Advised to Verified 07/11/24 07:49 avoid "due to angioma" blood thinner AdvReac Severe Advised to Uncoded 07/11/24 07:49 avoid "due to angioma" Procedures Performed Operation Date: 07/11/24 09:10 Actual Procedures p Cystoscopy, Ureteronephroscopy, Retrograde Pyelogram, Ureteral Dilation, Laser Destruction of the Stone,(Left) - Burt Trujillo MD s Exchange of Stent Catheter - Left(Left) - Burt Trujillo MD Ordered Studies 07/11/24 09:10 FL KUB Routine Hospital Course (1) Staghorn calculus: (2) Ureteral stent present: Plan - POD #1 s/p Cystoscopy, Left Ureteroscopy, Laser Lithotripsy, Exchange of Left Stent Catheter - Afebrile with stable vitals. - Labs today reviewed - No leukocytosis. Hemoglobin 7.5 and Creatinine 2.14 - as expected given her surgery and the IV fluids. - Continues on Ceftriaxone. - Reports minimal pain. - Voiding spontaneously. Plan: - Continue supportive care. - Continue antibiotic therapy. - OK to d/c IV fluids. - Anticipate discharge home later today if she continues to progress as expected. Update: - Pt reassessed this afternoon. - Remains afebrile and hemodynamically stable. - Patient is stable for discharge home today. - Will d/c with course of p.o. antibiotics. - Will arrange outpatient follow-up. - Discharge instructions reviewed, all questions were answered. Total Time Total Time Spent Total Time Spent (In Minutes): 15 Discharge Plan Discharge Items Patient Disposition: Home - Self-Care Reason For Visit: Calculus of Kidney Discharge Diagnosis: Calculus of Kidney Condition on Discharge: Good Activity: Per Instructions section Non-emergency contact: Surgeon and Urologist Call non-emergency contact if: you have any medication questions, your pain is not controlled, your pain is worsening, you have a fever, your wound has increased redness, your wound has increased drainage and your wound pain has increased Follow-up/Referrals: Burt Trujillo MD [Physician] - José Miguel Ohara [Primary Care Provider] - 07/18/24 11:00 am Diet: Regular Addtl Attending Provider Instructions: Please take all medications as prescribed and keep all follow-ups as scheduled. Please call our office at [phone] with any questions, concerns or need to reschedule appointments for any reason. We are happy to assist you. You can start the antibiotic (Cefdinir) tomorrow 07/13/24. While you have a ureteral stent in place: Some discomfort is normal. Certain movements may trigger pain or a feeling that you need to urinate. You may also feel mild soreness or pressure before or during urination. These symptoms should go away a few days after the stent is removed. Your urine may be slightly pink or red. This is due to bleeding caused by minor irritation from the stent. This may happen on and off while you have the stent, it is not harmful and is to be expected. Medication to help minimize discomfort or bladder spasms, or to prevent infection may be prescribed. Take this as directed. Drink plenty of fluids to help flush out your urinary tract. When to call [facility] at [phone]: Your urine contains heavy blood clots or you are unable to urinate You are constantly leaking urine Fever of 101F or higher, chills, nausea, or vomiting Your pain is not relieved with medication The end of the stent comes out of your urethra Pending Studies at Discharge: No Stand-Alone Forms: My [facility], Smoking Cessation Medications and DC Order Prescriptions: New cefdinir 300 mg capsule 300 mg PO BID 5 Days Qty: 10 0RF Continued famotidine [Pepcid] 20 mg tablet 20 mg PO HS pantoprazole 40 mg tablet,delayed release (DR/EC) 40 mg PO BID Qty: 60 0RF cholecalciferol (vitamin D3) 50 mcg (2,000 unit) capsule 50 mcg PO QAM Rx Instructions: Unable to verify OTC meds at this date/time cyanocobalamin (vitamin B-12) 500 mcg tablet 1,000 mcg PO QAM Rx Instructions: Unable to verify OTC meds at this date/time acetazolamide 500 mg capsule, extended release 500 mg PO BID sertraline 100 mg tablet 200 mg PO QAM topiramate 200 mg tablet 200 mg PO BID Januvia 50 mg tablet 50 mg PO HS ferrous sulfate [iron] 325 mg (65 mg iron) Tablet 325 mg PO QPM lisinopril 5 mg tablet 5 mg PO HS hyoscyamine sulfate 0.125 mg tablet 0.125 mg PO QID buspirone 30 mg tablet 30 mg PO BID ascorbic acid (vitamin C) [Vitamin C With Uyen Hips] 500 mg Tablet Extended Release 500 mg PO BID Rx Instructions: Unable to verify OTC meds at this date/time atorvastatin 10 mg tablet 10 mg PO HS hydrocortisone 2.5 % cream with perineal applicator 1 applic GA BID PRN (Reason: hemorrhoids) clindamycin phosphate 1 % lotion 1 applic topical DAILY PRN (Reason: inflammed boils) Rx Instructions: Apply to the lesions BID when inflamed. metformin 500 mg tablet extended release 24 hr 1,000 mg PO QAM solifenacin [Vesicare] 10 mg tablet 10 mg PO QAM Discontinued sulfamethoxazole-trimethoprim [Bactrim] 400-80 mg tablet 1 tab PO BID 7 Days Qty: 14 0RF Discharge Orders: Discharge Order (Routine); Ordered 07/12/24 Ordered By: Emelia B. Zhu Admission Data Admit Date/Time: 07/11/24 10:58 Attending Provider: Burt Trujillo Admit Provider: Burt Trujillo Primary Care Provider: José Miguel Ohara Other Interventions: Discharge Summary Assessment (RN) Last Done: 07/12/24 17:25 Coding Level of Care Code 95959 IN/OBS DISCH 30 MIN/LESS Diagnoses Staghorn calculus N20.0 Ureteral stent present Z96.0
== END 2024-07-12 17:59 | disposition home or self-care (01) ==
LOC: 3E 07:11 → ASU 07:11
DX: Z88.6 Allergy status to analgesic agent; G47.33 Obstructive sleep apnea (adult) (pediatric); Z79.899 Other long term (current) drug therapy; E11.9 Type 2 diabetes mellitus without complications; Z91.09 Other allergy status, other than to drugs and biological substances; Z88.8 Allergy status to other drugs, medicaments and biological substances; Z68.45 Body mass index [BMI] 70 or greater, adult; Z79.84 Long term (current) use of oral hypoglycemic drugs; E66.01 Morbid (severe) obesity due to excess calories; Z88.0 Allergy status to penicillin; N20.0 Calculus of kidney; Z87.891 Personal history of nicotine dependence; Z46.6 Encounter for fitting and adjustment of urinary device

== ENCOUNTER 2025-08-18 08:18 | Inpatient (IN) ==
--- NOTE | 2025-08-18 09:25 | Emergency Department Note ---
History of Present Illness General Chief complaint: Urinary Symptoms Stated complaint: ILLNESS Time Seen by Provider: 08/18/25 08:28 History of Present Illness Provider complaint: Illness 49-year-old female presents emergency department for illness. Patient states "I need to be placed into a rehab or jail facility". Patient states that she feels very weak and is afraid she is going to . She reports that she fell and is having pain in her bilateral hips today. Patient reports not hitting her head. No headache. Patient reports she has not been eating or drinking. Patient reports she was up every hour last night going to the bathroom and is afraid she has a UTI. Patient states her PCP prescribed her Bactrim recently but she states she is does not think it is helping. Home Medications Medication Instructions Recorded Confirmed Type cholecalciferol (vitamin D3) 50 50 mcg PO QAM 11/18/20 08/18/25 History mcg (2,000 unit) capsule cyanocobalamin (vitamin B-12) 500 1,000 mcg PO .Q OTHER DAY IN AM 11/18/20 08/18/25 History mcg tablet acetazolamide 500 mg 500 mg PO BID 09/23/22 08/18/25 History capsule,extended release sertraline 100 mg tablet 200 mg PO QAM 09/23/22 08/18/25 History topiramate 200 mg tablet 200 mg PO BID 09/23/22 08/18/25 History famotidine 20 mg tablet (Pepcid) 20 mg PO HS 11/04/22 08/18/25 History sitagliptin phosphate 50 mg tablet 50 mg PO HS 12/01/22 08/18/25 History (Januvia) ferrous sulfate 325 mg (65 mg 325 mg PO QPM 04/23/23 08/18/25 History iron) tablet (iron) lisinopril 5 mg tablet 5 mg PO HS 04/23/23 08/18/25 History ascorbic acid (vitamin C) 500 mg 500 mg PO BID 04/21/24 08/18/25 History tablet,extended release (Vitamin C With Uyen Hips) atorvastatin 10 mg tablet (Lipitor) 10 mg PO HS 04/21/24 08/18/25 History buspirone 30 mg tablet 30 mg PO BID 04/21/24 08/18/25 History hydrocortisone 2.5 % topical cream 1 applic SD BID PRN hemorrhoids 04/21/24 08/18/25 History with perineal applicator nystatin 100,000 unit/gram topical 1 applic topical DAILY 01/17/25 08/18/25 History powder solifenacin 10 mg tablet (Vesicare) 10 mg PO QAM #30 tabs 08/15/25 08/18/25 Rx clindamycin phosphate 1 % lotion 1 applic topical DAILY PRN 08/18/25 08/18/25 History inflammed boils hyoscyamine sulfate 0.375 mg 0.375 mg PO TID 08/18/25 08/18/25 History tablet,extended release,12 hr loperamide 2 mg capsule (Imodium 2 mg PO Q4H PRN Diarrhea 08/18/25 08/18/25 History A-D) lorazepam 1 mg tablet 1 mg PO Q8H 08/18/25 08/18/25 History omeprazole 40 mg capsule,delayed 40 mg PO BID 08/18/25 08/18/25 History release psyllium 1 packet PO DAILY 08/18/25 08/18/25 History Allergies Allergy/AdvReac Type Severity Reaction Status Date / Time adhesive tape Allergy Severe Redness of Verified 02/27/25 13:16 Skin Penicillins Allergy Severe Rash Verified 02/27/25 13:16 aspirin AdvReac Severe Advised to Verified 02/27/25 13:16 avoid "due to angioma" blood thinner AdvReac Severe Advised to Uncoded 02/27/25 13:16 avoid "due to angioma" Past Med/Surg History Problem List (Updated 08/18/25 @ 11:28 by Madhu Kraft MD) BERE (acute kidney injury) (Acute) Acute kidney injury Proteinuria Vitamin D deficiency Morbid obesity Stage 3b chronic kidney disease Normal anion gap metabolic acidosis Fall 05/04/24 Thrombocytopenia Anemia Ureteral stent present UTI (urinary tract infection) Hemorrhoids occasional bleeding Staghorn calculus Left nephrolithiasis Nausea Diarrhea 05/10/23 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 Iron deficiency anemia Heme positive stool 12/01/22 GERD (gastroesophageal reflux disease) IBS (irritable bowel syndrome) Type 2 diabetes mellitus Cellulitis 11/04/22 Legally blind VANDANA (obstructive sleep apnea) BiPAP UTI symptoms (Acute) Obsessive compulsive disorder (Acute) Anxiety and depression (Acute) Frequency of micturition Urgency of urination Arthritis (Acute) Asthma (Acute) Psychological disorder (Acute) Sensation of pressure in bladder area (Acute) History of recurrent UTIs Medical History Encounter for pre-operative examination UTI (urinary tract infection) (07/04/24) seen at [facility] ED on 07/04/24, Urology office to send records, pt. given script for macrobid, will start first dose tonight History of recent hospitalization Admitted after 05/16/24 urology surgery; D/C 05/19/24; received 1 unit PRBCs 05/18/24 Boil of groin pt described hx of "boils" around perineum area, states worsen with stress. has had these get infected in past with purulent drainage requiring abx. has clindaymycin ointment to use. Hx of colonic polyps History of postoperative nausea and vomiting Thrombocytopenia (04/2024) dx during 04/2024 admission [facility]; mild; monitoring History of recent fall 05/04/24, while amb w/ walker while inpt at [facility]. no loc, no head strike Arthritis Left nephrolithiasis Hemorrhoids occasional bleeding Ureteral stent present (06/06/24) Iron deficiency anemia monitored during inpt admission 04/2024. Iron was low; pt had been off of iron supplement and it was resumed. No signs of GI bleed. Per D/C summary: "She denies any dizziness. No hypotension. No indication for blood transfusion. Pt advised to f/u with PCP outpt. 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 IBS (irritable bowel syndrome) GERD (gastroesophageal reflux disease) Pseudotumor cerebri follows with [facility] Neurology Orthopnea occasional Overactive bladder Anxiety severe Depression OCD (obsessive compulsive disorder) severe - pt. would only participate in PAT phone assessment with "ita" from Dr. Trujillo office on phone with her Morbid obesity with BMI of 70 and over, adult Asthma well controlled Surgical History Hx of colonoscopy with polypectomy (05/2023) History of cystoscopy (06/06/24) multiple cystoscopy and lithotripsy/ stent procedures. most recent 06/06/24 History of open reduction and internal fixation (ORIF) procedure LLE - as a chhild History of tonsillectomy History of x2 History of cholecystectomy History of surgery (2016) RLE x 7 surgeries r/t necrotizing fasciitis Family History Other Bladder cancer No family history of adverse response to anesthesia Social History Smoking Status: Former smoker Tobacco Type: Cigarettes Second Hand Exposure: No; Do You Dip or Chew Tobacco: No; Hx Alcohol Use: No Hx Substance Use: No Preferred Language: [place]i Communication Ability: Effective Communication Ability Comment: extremely anxious Visual Impairment: Blindness Hearing Ability: Normal [employer] Required: No Beliefs That Will Affect Care: None Current Living Situation: Family and Significant Other Current Living Situation Comment: son and by How many Children do You have: 2 Feels Safe at Home: Yes Diet: regular caffeine: Yes (diet sweet tea. occasional pepsi) Dental Care, Regularly: No Physical Activity Frequency: Does not Exercise Seatbelt Use: always Do you think of yourself as: straight/heterosexual Gender Identity: Female Assistive Devices: Lift Chair, Walker and Wheelchair Physical Exam Vital Signs Vital Signs - 24 hr 08/18/25 08:19 08/18/25 09:12 08/18/25 09:41 Temperature 36.5 C Temperature Source Temporal Artery Scan Pulse Rate 85 88 Pulse Rate [Apical] 91 H Respiratory Rate 18 20 Blood Pressure 111/60 Blood Pressure [Right Arm] 99/56 L Blood Pressure Mean 77 Blood Pressure Mean [Right Arm] 70 Pulse Oximetry 94 94 Oxygen Delivery Method Room Air Room Air Sepsis New/Unexplained Change in Mental Status No Sepsis Action Taken by Nursing No Action Required 08/18/25 09:41 08/18/25 11:00 Temperature Temperature Source Pulse Rate 91 H Pulse Rate [Apical] 86 Respiratory Rate 20 20 Blood Pressure Blood Pressure [Right Arm] 126/69 Blood Pressure Mean Blood Pressure Mean [Right Arm] 88 Pulse Oximetry 94 100 Oxygen Delivery Method Room Air Room Air Sepsis New/Unexplained Change in Mental Status Sepsis Action Taken by Nursing Physical Exam HENT: Exam performed. -Head: Normocephalic and atraumatic. -Right Ear: External ear normal. No mastoid erythema -Left Ear: External ear normal. No mastoid erythema -Mouth/Throat: Dry mucous membranes no trismus in the jaw. No dental abscesses or uvula swelling. No oropharyngeal exudate or tonsillar abscesses. EYES: Conjunctivae and EOM are normal. Pupils are equal, round, and reactive to light. Right eye exhibits no discharge. Left eye exhibits no discharge. No scleral icterus. NECK: Normal range of motion. Neck supple. No JVD present. CV: Normal rate, regular rhythm, normal heart sounds and intact distal pulses. Bilateral lower extremity lymphadenopathy. Palpable radial pulses bue. PULM/CHEST: Effort normal and breath sounds normal. No respiratory distress. No stridor. She has no wheezes. She has no rales. ABD: The abdomen is soft. Morbidly obese. There is no tenderness. There is no rebound, no guarding. MUSC/SKEL: Pelvis stable. Pain on palpation of the bilateral hips. NEURO: Motor and sensation grossly intact. PSYCH: Patient appears very anxious and keeps asking multiple nurses and doctors "am I going to ? Am I going to ?" Course Course 08: The patient was evaluated in room B8. A complete history and physical exam was performed Cardiac monitoring: An order was placed for continuous cardiac monitoring. The monitor shows a rate of 90 with sinus rhythm interpreted by me 1126: Vital signs stable. Patient refusing any imaging at this time. Patient just keeps perseverating stating "I am going to I do not want to ". Urinalysis is concerning for UTI. Blood work shows a creatinine of 2.71 up from her baseline of 2. Patient be treated with Rocephin which she has received multiple doses of in the past. [facility]. Administered Medications Discontinued Medications Sodium Chloride (Nss) 500 mls @ 999 mls/hr IV .Q31M ONE Stop: 08/18/25 09:48 Last Admin: 08/18/25 11:28 Dose: 999 mls/hr Documented By: LUIS Ceftriaxone Sodium (Rocephin) 2,000 mg in 50 mls @ 100 mls/hr IV NOW STA Stop: 08/18/25 10:25 Last Infusion: 08/18/25 12:14 Dose: Infused Documented By: [email or web address] Admin: 08/18/25 11:28 Dose: 100 mls/hr Documented By: LUIS Medical Decision Making Laboratory Data Attestation: I reviewed the patient's lab results. 08/18/25 09:55 08/18/25 09:55 Lab Results 08/18/25 08/18/25 Range/Units 08:55 09:55 WBC 7.12 (4.8-10.8) K/ul RBC 3.61 L (4.20-5.40) M/uL Hgb 9.0 L (12.0-16.0) g/dl Hct 30.7 L (37.0-47.0) % MCV 85.0 (80.0-100.0) fL MCH 24.9 L (25.0-34.0) pg MCHC 29.3 L (32.0-36.0) g/dL RDW Std Deviation 53.0 H (36.4-46.3) fL RDW Coeff of Eleni 17.0 H (11.5-14.5) % Plt Count 136 (130-400) K/uL MPV 9.5 (9.4-12.4) fL Immature Gran % (Auto) 0.8 % Neut % (Auto) 82.4 % Lymph % (Auto) 10.0 % [place] % (Auto) 5.9 % Eos % (Auto) 0.3 % Baso % (Auto) 0.6 % Neut # (Auto) 5.87 (1.40-6.50) K/uL Lymph # (Auto) 0.71 L (1.20-3.40) K/uL [place] # (Auto) 0.42 (0.11-0.59) K/uL Eos # (Auto) 0.02 (0.00-0.50) K/uL Baso # (Auto) 0.04 (0.00-0.20) K/uL Immature Gran # (Auto) 0.06 (0.01-0.20) K/uL Sodium 141 (136-145) mmol/L Potassium 3.7 (3.5-5.1) mmol/L Chloride 119 H (98-107) mmol/L Carbon Dioxide 14 L (21-32) mmol/L Anion Gap 8 (3-11) BUN 32 H (6-23) mg/dl Creatinine 2.71 H (0.6-1.2) mg/dl Est Cr Clr Drug Dosing Not Reportable eGFR 20.75 BUN/Creatinine Ratio 11.8 (10-20) Glucose 97 (70-99(Fasting)) mg/dl Lactate 0.7 (0.4-2.0) mmol/L Calcium 8.6 (8.6-10.3) mg/dl Magnesium 2.0 (1.7-2.4) mg/dl Lipase 32 (11-82) U/L Procalcitonin 0.22 (0-0.5) ng/ml Urine Color Yellow Urine Appearance Turbid A (Clear) Urine pH 5.5 (4.5-7.5) Ur Specific [place] 1.014 (1.000-1.030) Urine Protein 1+ H (Negative) Urine Glucose (UA) Negative (Negative) Urine Ketones Negative (Negative) Urine Blood 1+ H (Negative) Urine Nitrite Negative (Negative) Urine Bilirubin Negative (Negative) Urine Urobilinogen Negative (Negative) Ur Leukocyte Esterase 3+ H (Negative) Urine WBC (Auto) >50 H (0-5) /hpf Urine RBC (Auto) 3-5 H (0-2) /hpf U Hyaline Cast (Auto) 3-5 H (0-2) /lpf U Epithel Cells (Auto) 0-2 (0-2) /hpf Urine Bacteria (Auto) 3+ H (None Seen) Urine Comment Salicylates < 3.0 L (3.0-30) mg/dl Acetaminophen < 3 L (10-30) ug/ml Imaging Data Radiologist's Impression: Chest X-Ray 08/18/25 09:11 Technique: A frontal view of the chest was obtained Findings: There are no confluent pulmonary infiltrates. The heart size is within normal limits. No pleural effusion or pneumothorax is seen. There is no definite pulmonary nodule. There are old healed right rib fractures Impression: No active disease Electronically signed by Giovanni Longoria 08-18-2025 11:16 AM Pelvis X-Ray 08/18/25 09:11 2 views of the pelvis are submitted for review. Findings: No fracture or dislocation is seen. No significant arthritic changes are noted. No other osseous abnormality is identified. There are no radiopaque foreign bodies. Impression: Unremarkable radiographs of the pelvis Electronically signed by Giovanni Longoria 08-18-2025 11:18 AM [facility] Narrative 0828: The patient was evaluated in room B8. A complete history and physical exam was performed Cardiac monitoring: An order was placed for continuous cardiac monitoring. The monitor shows a rate of 90 with sinus rhythm interpreted by me 1126: Vital signs stable. Patient refusing any imaging at this time. Patient just keeps perseverating stating "I am going to I do not want to ". Urinalysis is concerning for UTI. Blood work shows a creatinine of 2.71 up from her baseline of 2. Patient be treated with Rocephin which she has received multiple doses of in the past. Patient will be admitted to the [facility] hospitalist team. Impression & Plan UTI symptoms, Anxiety and depression, Obsessive compulsive disorder, BERE (acute kidney injury) Discharge Plan Visit Data Chief Complaint: Urinary Symptoms Stated Complaint: ILLNESS ED Provider: Madhu Kraft Discharge Problem: UTI symptoms, Anxiety and depression, Obsessive compulsive disorder, BERE (acute kidney injury) Patient Disposition: Being Evaluated by Hospitalist Condition: Fair Forms Stand Alone Forms: My [facility] Prescriptions Prescriptions: No Action famotidine [Pepcid] 20 mg tablet 20 mg PO HS solifenacin [Vesicare] 10 mg tablet 10 mg PO QAM Qty: 30 3RF Patient Comments: 11am cholecalciferol (vitamin D3) 50 mcg (2,000 unit) capsule 50 mcg PO QAM Patient Comments: 11am cyanocobalamin (vitamin B-12) 500 mcg tablet 1,000 mcg PO .Q OTHER DAY IN AM Rx Instructions: Unable to verify OTC meds at this date/time acetazolamide 500 mg capsule, extended release 500 mg PO BID Patient Comments: 11am and 11pm sertraline 100 mg tablet 200 mg PO QAM Patient Comments: 11am topiramate 200 mg tablet 200 mg PO BID Patient Comments: 11am and 11pm Januvia 50 mg tablet 50 mg PO HS Patient Comments: 11pm nystatin 100,000 unit/gram powder 1 applic topical DAILY ferrous sulfate [iron] 325 mg (65 mg iron) Tablet 325 mg PO QPM Patient Comments: 6pm lisinopril 5 mg tablet 5 mg PO HS Patient Comments: 11pm buspirone 30 mg tablet 30 mg PO BID Patient Comments: 11am and 11pm ascorbic acid (vitamin C) [Vitamin C With Uyen Hips] 500 mg Tablet Extended Release 500 mg PO BID Patient Comments: 11 am and 11pm atorvastatin [Lipitor] 10 mg tablet 10 mg PO HS Patient Comments: 11pm hydrocortisone 2.5 % cream with perineal applicator 1 applic SD BID PRN (Reason: hemorrhoids) omeprazole 40 mg capsule,delayed release(DR/EC) 40 mg PO BID hyoscyamine sulfate 0.375 mg tablet extended release 12 hr 0.375 mg PO TID Patient Comments: 9am, 5pm, 1am lorazepam 1 mg tablet 1 mg PO Q8H Patient Comments: 9am, 5pm, and 1 am clindamycin phosphate 1 % lotion 1 applic topical DAILY PRN (Reason: inflammed boils) Patient Comments: Rx Instructions: Apply to the lesions BID when inflamed. loperamide [Imodium A-D] 2 mg Capsule 2 mg PO Q4H PRN (Reason: Diarrhea) Rx Instructions: administer after each loose stool until symptoms controlled; do not exceed 8 mg per 24 hrs Metamucil Packet 1 packet PO DAILY Rx Instructions: mix into at least 8 oz of water or juice before administering Referrals Referrals: José Miguel Ohara [Primary Care Provider] -
[2025-08-18 09:33] LABS: Appearance Urine Turbid (Clear); Bacteria Urine Automated 3+ (None Seen); Epithelial Cell Urine Auto 0-2 /hpf (0-2); Glucose Urine UA Negative (Negative); WBC Urine Automated >50 /hpf (0-5)
[2025-08-18 10:11] LABS: Hematocrit (blood only) 30.7 % (37.0-47.0); Hemoglobin 9.0 g/dl (12.0-16.0); Immature Granulocytes # (auto) 0.06 K/uL (0.01-0.20); Immature Granulocytes % (auto) 0.8 %; Mean Corpuscular Hemoglobin 24.9 pg (25.0-34.0); Mean Corpuscular Volume 85.0 fL (80.0-100.0); Platelet Count 136 K/uL (130-400); RDW Standard Deviation 53.0 fL (36.4-46.3); Red Blood Count 3.61 M/uL (4.20-5.40); White Blood Count 7.12 K/ul (4.8-10.8)
[2025-08-18 10:28] LABS: Anion Gap 8 (3-11); Blood Urea Nitrogen 32 mg/dl (6-23); Calcium 8.6 mg/dl (8.6-10.3); Carbon Dioxide 14 mmol/L (21-32); Chloride 119 mmol/L (98-107); Glucose 97 mg/dl (70-99(Fasting)); Lipase 32 U/L (11-82); Magnesium 2.0 mg/dl (1.7-2.4); Potassium 3.7 mmol/L (3.5-5.1); Sodium 141 mmol/L (136-145)
[2025-08-18 10:36] LABS: Acetaminophen < 3 ug/ml (10-30); Salicylate < 3.0 mg/dl (3.0-30)
--- NOTE | 2025-08-18 11:16 | XRay Report ---
Technique: A frontal view of the chest was obtained Findings: There are no confluent pulmonary infiltrates. The heart size is within normal limits. No pleural effusion or pneumothorax is seen. There is no definite pulmonary nodule. There are old healed right rib fractures Impression: No active disease Electronically signed by Giovanni Longoria 08-18-2025 11:16 AM
--- NOTE | 2025-08-18 11:18 | XRay Report ---
2 views of the pelvis are submitted for review. Findings: No fracture or dislocation is seen. No significant arthritic changes are noted. No other osseous abnormality is identified. There are no radiopaque foreign bodies. Impression: Unremarkable radiographs of the pelvis Electronically signed by Giovanni Longoria 08-18-2025 11:18 AM
[2025-08-18] MEDS: cefTRIAXone SODIUM 2,000 MG/50 ML BAG IV STA (11:28)
[2025-08-18] MEDS: SODIUM CHLORIDE 0.9% 500 ML IV ONE (11:28)
[2025-08-18 17:01] LABS: Influenza A virus by PCR Negative (Neg); Influenza B virus by PCR Negative (Neg); SARS CoV2 RNA(COVID-19) Ceph NEGATIVE (Negative)
[2025-08-18] MEDS ORDERED: GLUCOSE 40% GEL 15 GM TUBE PO PRN (18:34)
[2025-08-18] MEDS ORDERED: CARBOHYDRATES FOR HYPOGLYCEMIA PO PRN (18:34)
[2025-08-18] MEDS ORDERED: GLUCAGON FOR INJ 1 MG VIAL SQ PRN (18:34)
[2025-08-18] MEDS ORDERED: DEXTROSE 50% 50 ML SYRINGE IV PRN (18:34)
[2025-08-18] MEDS ORDERED: GLUCOSE 10 TAB/TUBE PO PRN (18:34)
--- NOTE | 2025-08-18 18:36 | History & Physical Report ---
Date of Service August 18, 2025 Assessment & Plan (1) BERE (acute kidney injury): (2) Stage 3b chronic kidney disease: (3) Morbid obesity: (4) Weakness: Plan #Recurrent falls - admit for PT / OT eval - fall precautions - PT / OT eval placed #Abnormal UA - ID note reviewed from 07/16/25, recommends no further treatment for UTI unless pt is symptomatic (pain, dysuria, fever / chills, confusion). Given pt has no symptom, will hold off on further treatment #BERE - s/p 1L bolus in the ED - hold further IVF and reassess in the AM #HLD - cont statin #OCD #Anxiety - cont home meds at this time #DM II - hold sitagliptin - sens correctional scale - check A1c - hypoglycemic protocol #DVT ppx - lovenox subq #Dispo- admit for PT / OT shaggy #Code status: Full code History of Present Illness Chief Complaint: leg weakness Primary Care Provider: José Miguel Ohara 49 yr old F with PMHx of OCD, HLD, anxiety, GERD, iron deficiency, HTN presents to the hospital because her legs were giving out leading to falls. She stated she wants to be evaluated for rehab or [facility] placement. She also complained of increased urination without dysuria, fever pain or confusion). ED workup revealed abnormal UA. Pt was given Ceftriaxone and hospitalist consulted for admission. Pt herself has no other concerns. She did frequently ask if she will be ok and recognized that this is stemming from her OCD. Allergies Allergy/AdvReac Type Severity Reaction Status Date / Time adhesive tape Allergy Severe Redness of Verified 02/27/25 13:16 Skin Penicillins Allergy Severe Rash Verified 02/27/25 13:16 aspirin AdvReac Severe Advised to Verified 02/27/25 13:16 avoid "due to angioma" blood thinner AdvReac Severe Advised to Uncoded 02/27/25 13:16 avoid "due to angioma" Home Medications Medication Instructions Recorded Confirmed Type cholecalciferol (vitamin D3) 50 50 mcg PO QAM 11/18/20 08/18/25 History mcg (2,000 unit) capsule cyanocobalamin (vitamin B-12) 500 1,000 mcg PO .Q OTHER DAY IN AM 11/18/20 08/18/25 History mcg tablet acetazolamide 500 mg 500 mg PO BID 09/23/22 08/18/25 History capsule,extended release sertraline 100 mg tablet 200 mg PO QAM 09/23/22 08/18/25 History topiramate 200 mg tablet 200 mg PO BID 09/23/22 08/18/25 History famotidine 20 mg tablet (Pepcid) 20 mg PO HS 11/04/22 08/18/25 History sitagliptin phosphate 50 mg tablet 50 mg PO HS 12/01/22 08/18/25 History (Januvia) ferrous sulfate 325 mg (65 mg 325 mg PO QPM 04/23/23 08/18/25 History iron) tablet (iron) lisinopril 5 mg tablet 5 mg PO HS 04/23/23 08/18/25 History ascorbic acid (vitamin C) 500 mg 500 mg PO BID 04/21/24 08/18/25 History tablet,extended release (Vitamin C With Uyen Hips) atorvastatin 10 mg tablet (Lipitor) 10 mg PO HS 04/21/24 08/18/25 History buspirone 30 mg tablet 30 mg PO BID 04/21/24 08/18/25 History hydrocortisone 2.5 % topical cream 1 applic MA BID PRN hemorrhoids 04/21/24 08/18/25 History with perineal applicator nystatin 100,000 unit/gram topical 1 applic topical DAILY 01/17/25 08/18/25 History powder solifenacin 10 mg tablet (Vesicare) 10 mg PO QAM #30 tabs 08/15/25 08/18/25 Rx clindamycin phosphate 1 % lotion 1 applic topical DAILY PRN 08/18/25 08/18/25 History inflammed boils hyoscyamine sulfate 0.375 mg 0.375 mg PO TID 08/18/25 08/18/25 History tablet,extended release,12 hr loperamide 2 mg capsule (Imodium 2 mg PO Q4H PRN Diarrhea 08/18/25 08/18/25 History A-D) lorazepam 1 mg tablet 1 mg PO Q8H 08/18/25 08/18/25 History omeprazole 40 mg capsule,delayed 40 mg PO BID 08/18/25 08/18/25 History release psyllium 1 packet PO DAILY 08/18/25 08/18/25 History Past Med/Surg History Problem List (Updated 08/18/25 @ 18:44 by Goldie Lopez MD) Weakness BERE (acute kidney injury) (Acute) Acute kidney injury Proteinuria Vitamin D deficiency Morbid obesity Stage 3b chronic kidney disease Normal anion gap metabolic acidosis Fall 05/04/24 Thrombocytopenia Anemia Ureteral stent present UTI (urinary tract infection) Hemorrhoids occasional bleeding Staghorn calculus Left nephrolithiasis Nausea Diarrhea 05/10/23 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 Iron deficiency anemia Heme positive stool 12/01/22 GERD (gastroesophageal reflux disease) IBS (irritable bowel syndrome) Type 2 diabetes mellitus Cellulitis 11/04/22 Legally blind VANDANA (obstructive sleep apnea) BiPAP UTI symptoms (Acute) Obsessive compulsive disorder (Acute) Anxiety and depression (Acute) Frequency of micturition Urgency of urination Arthritis (Acute) Asthma (Acute) Psychological disorder (Acute) Sensation of pressure in bladder area (Acute) History of recurrent UTIs Medical History Encounter for pre-operative examination UTI (urinary tract infection) (07/04/24) seen at [facility] ED on 07/04/24, Urology office to send records, pt. given script for macrobid, will start first dose tonight History of recent hospitalization Admitted after 05/16/24 urology surgery; D/C 05/19/24; received 1 unit PRBCs 05/18/24 Boil of groin pt described hx of "boils" around perineum area, states worsen with stress. has had these get infected in past with purulent drainage requiring abx. has clindaymycin ointment to use. Hx of colonic polyps History of postoperative nausea and vomiting Thrombocytopenia (04/2024) dx during 04/2024 admission [facility]; mild; monitoring History of recent fall 05/04/24, while amb w/ walker while inpt at [facility]. no loc, no head strike Arthritis Left nephrolithiasis Hemorrhoids occasional bleeding Ureteral stent present (06/06/24) Iron deficiency anemia monitored during inpt admission 04/2024. Iron was low; pt had been off of iron supplement and it was resumed. No signs of GI bleed. Per D/C summary: "She denies any dizziness. No hypotension. No indication for blood transfusion. Pt advised to f/u with PCP outpt. 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 IBS (irritable bowel syndrome) GERD (gastroesophageal reflux disease) Pseudotumor cerebri follows with [facility] Neurology Orthopnea occasional Overactive bladder Anxiety severe Depression OCD (obsessive compulsive disorder) severe - pt. would only participate in PAT phone assessment with "ita" from Dr. Trujillo office on phone with her Morbid obesity with BMI of 70 and over, adult Asthma well controlled Surgical History Hx of colonoscopy with polypectomy (05/2023) History of cystoscopy (06/06/24) multiple cystoscopy and lithotripsy/ stent procedures. most recent 06/06/24 History of open reduction and internal fixation (ORIF) procedure LLE - as a chhild History of tonsillectomy History of x2 History of cholecystectomy History of surgery (2017) RLE x 7 surgeries r/t necrotizing fasciitis Family History Other Bladder cancer No family history of adverse response to anesthesia Social History Smoking Status: Former smoker Tobacco Type: Cigarettes Second Hand Exposure: No; Do You Dip or Chew Tobacco: No; Hx Alcohol Use: No Hx Substance Use: No Preferred Language: Setswana Communication Ability: Effective Communication Ability Comment: extremely anxious Visual Impairment: Blindness Hearing Ability: Normal Tie Knitter Helper Required: No Beliefs That Will Affect Care: None Current Living Situation: Family and Significant Other Current Living Situation Comment: son and by How many Children do You have: 2 Feels Safe at Home: Yes Diet: regular caffeine: Yes (diet sweet tea. occasional pepsi) Dental Care, Regularly: No Physical Activity Frequency: Does not Exercise Seatbelt Use: always Do you think of yourself as: straight/heterosexual Gender Identity: Female Assistive Devices: Lift Chair, Walker and Wheelchair Review of Systems Review of Systems: Comprehensive ROS completed and is otherwise negative. Physical Exam Physical Exam: Gen: obese female, no acute distress, lying in bed comfortable HEENT: NC/AT, MMM Lungs: nonlabored breathing, CTAB CVS: s1s2nl, RRR Abd: nl bowel sounds, soft, NT / ND : no awad Ext: no edema Neuro: awake, alert Psych: anxious, repetitive, but overall cooperative Results & Data Results & Data Vital Signs (Past 12 Hours) Vital Signs Temp Pulse Pulse Resp BP BP Pulse Ox 08/18/25 18:10 74 16 138/69 98 08/18/25 16:32 86 08/18/25 16:00 82 16 132/65 100 08/18/25 14:14 85 20 136/63 100 08/18/25 11:00 86 20 126/69 100 08/18/25 09:41 91 H 20 94 08/18/25 09:41 91 H 20 99/56 L 94 08/18/25 09:12 88 08/18/25 08:19 36.5 C 85 18 111/60 94 O2 Del Method 08/18/25 18:10 Room Air 08/18/25 16:32 08/18/25 16:00 Room Air 08/18/25 14:14 Room Air 08/18/25 11:00 Room Air 08/18/25 09:41 Room Air 08/18/25 09:41 Room Air 08/18/25 09:12 08/18/25 08:19 Room Air PG Care Time/CCT Total # of Minutes Spent Total Time Spent with Patient: Total time spent is greater than 50% in coordination of care (as documented) at patient's floor/unit and/or counseling patient: Coding Level of Care Code 27503 INT INP/OBS CARE 3/75MIN Diagnoses BERE (acute kidney injury) N17.9 Stage 3b chronic kidney disease N18.32 Morbid obesity E66.01 Weakness R53.1
[2025-08-18] MEDS ORDERED: ALUMINUM/MAGNESIUM SUSP 30 ML UDC PO PRN (20:09)
[2025-08-18] MEDS ORDERED: LOPERAMIDE HCL 2 MG CAP PO PRN (20:18)
[2025-08-18] MEDS: INSULIN ASPART PER UNIT CHARGE SC SCH (21:12)
[2025-08-18] MEDS: LOPERAMIDE HCL 2 MG CAP PO STA (21:39)
[2025-08-18] MEDS: FERROUS SULFATE 325 MG TAB PO SCH (21:40)
[2025-08-18] MEDS: FAMOTIDINE 20 MG TAB PO SCH (21:44)
[2025-08-18] MEDS: TOPIRAMATE 100 MG TAB PO SCH (21:44)
[2025-08-18] MEDS: ASCORBIC ACID 500 MG TAB PO SCH (21:45)
[2025-08-18] MEDS: ATORVASTATIN 10 MG TAB PO SCH (21:46)
[2025-08-18] MEDS: busPIRone 15 MG TAB PO SCH (21:47)
[2025-08-18] MEDS: NYSTATIN POWDER 15GM BTL EXT PRN (22:43)
[2025-08-18] MEDS: CALAMINE/PRAMOXINE LOTION 180 APPLN/180 ML BTL EXT PRN (22:43)
[2025-08-18] MEDS: HYOSCYAMINE SULFATE 0.375 MG TABCR PO SCH (23:52)
[2025-08-18] MEDS: LORazepam 1 MG TAB PO SCH (23:52)
[2025-08-19] MEDS ORDERED: Nursing to Pharmacy Communication SCH (02:45)
--- NOTE | 2025-08-19 06:19 | Electrocardiogram Report ---
Test Reason : Blood Pressure : */* mmHG Vent. Rate : 87 BPM Atrial Rate : 87 BPM P-R Int : 156 ms QRS Dur : 118 ms QT Int : 400 ms P-R-T Axes : -21 -9 -15 degrees QTcB Int : 481 ms Normal sinus rhythm Incomplete right bundle branch block Inferior infarct , age undetermined Abnormal ECG When compared with ECG of 16-May-2024 06:38, T wave inversion more evident in Inferior leads T wave inversion now evident in Anterior leads Confirmed by Nilesh See ([id number] on 08/19/2025 6:18:34 AM Referred By: REFERRED SELF Confirmed By: Nilesh See
[2025-08-19 06:53] LABS: Hematocrit (blood only) 26.4 % (37.0-47.0); Hemoglobin 7.8 g/dl (12.0-16.0); Mean Corpuscular Hemoglobin 25.7 pg (25.0-34.0); Mean Corpuscular Volume 87.1 fL (80.0-100.0); Platelet Count 123 K/uL (130-400); RDW Standard Deviation 54.8 fL (36.4-46.3); Red Blood Count 3.03 M/uL (4.20-5.40); White Blood Count 4.96 K/ul (4.8-10.8)
[2025-08-19 07:16] LABS: Anion Gap 9.0 (3-11); Calcium 8.3 mg/dl (8.6-10.3); Carbon Dioxide 13.0 mmol/L (21-32); Chloride 121.0 mmol/L (98-107); Magnesium 2.0 mg/dl (1.7-2.4); Potassium 3.7 mmol/L (3.5-5.1); Sodium 143.0 mmol/L (136-145)
[2025-08-19 07:22] LABS: Blood Urea Nitrogen 31.0 mg/dl (6-23); Creatinine Clr Calc Pharmacy 38.1 ml/min; Glucose 83.0 mg/dl (70-99(Fasting))
[2025-08-19 07:52] LABS: Hemoglobin A1C 5.0 % (4.5-5.6)
[2025-08-19] MEDS: PSYLLIUM HUSK 4GM PACKET PO SCH (08:19)
[2025-08-19] MEDS: SERTRALINE HCL 100 MG TABLET PO SCH (08:25)
[2025-08-19] MEDS: CHOLECALCIFEROL 25 MCG (1000 UNITS) TAB PO SCH (08:25)
[2025-08-19] MEDS: CYANOCOBALAMIN (B-12) 500 MCG TABLET PO SCH (08:28)
[2025-08-19] MEDS: ENOXAPARIN INJ 40 MG/0.4 ML SYR SQ SCH (08:32)
[2025-08-19] MEDS: OXYBUTYNIN CHLORIDE XL 5 MG TABCR PO SCH (08:32)
--- NOTE | 2025-08-19 10:36 | Hospitalist Progress Note ---
Date of Service August 19, 2025 Assessment & Plan (1) BERE (acute kidney injury): (2) Stage 3b chronic kidney disease: (3) Morbid obesity: (4) Weakness: (5) Normal anion gap metabolic acidosis: Plan 49 yr old F with PMHx of OCD, HLD, anxiety, GERD, iron deficiency, HTN, pseudotumor cerebri with papilledema of left eye, staghorn calculus presents to the hospital because her legs were giving out leading to falls. She stated she wants to be evaluated for rehab or detention placement. #Recurrent falls - admit for PT / OT eval - fall precautions - PT / OT eval placed #Abnormal UA #Staghorn calculus - pt does not have leukocytosis, fever, dysuria, confusion - ID note reviewed from 07/16/25, recommends no further treatment for UTI unless pt is symptomatic (pain, dysuria, fever / chills, confusion). Given pt has no symptom, will hold off on further treatment - UCx: more than 3 types of organism present #BERE #Normal anion gap metabolic acidosis - s/p 1L bolus in the ED - pt is on acetazolomide - will stop this at this time - initiate on sodium bicarb 650mg BID - started pt on plasmalyte infusion x24 hrs - encourage oral hydration - reassess BMP in the AM #Pseudotumor cerebri with papilledema of the left eye - pt is blind in the left and blurry vision the right (vision is unchanged) - hold further diamox dosing due to metabolic acidosis - she is already on topiramate - will request neurology evaluation #HLD - cont statin #OCD #Anxiety - cont buspirone - psych recs appreciated- recommend increasing sertraline 200mg to 250mg and adding abilify 5mg po daily - EKG ordered for 08/21 #DM II - hold sitagliptin - sens correctional scale - A1c: 5 - hypoglycemic protocol #DVT ppx - lovenox subq #Dispo- PT / OT eval , resolution of metabolic acidosis #Code status: Full code Admission and Anticipated Discharge Date Admission Date: August 18, 2025 Subjective No acute events overnight Currently pt is very anxious and repetitie Review of Systems Review of Systems: Comprehensive ROS completed and is otherwise negative. Physical Exam Physical Exam: Gen: obese female, no acute distress, lying in bed comfortable HEENT: NC/AT, MMM Lungs: nonlabored breathing, CTAB CVS: s1s2nl, RRR Abd: nl bowel sounds, soft, NT / ND : no awad Ext: no edema Neuro: awake, alert Psych: anxious, repetitive, but overall cooperative Results & Data Results & Data Vital Signs (Past 12 Hours) Vital Signs Temp Pulse Resp BP Pulse Ox O2 Del Method 08/19/25 07:40 36.2 C L 83 16 108/65 93 Room Air 08/19/25 04:02 36.5 C 77 16 99/58 L 98 Room Air 08/18/25 23:43 36.6 C 81 18 93/58 L 99 Room Air 08/18/25 23:07 Room Air 08/18/25 23:07 36.8 C 92 H 16 110/65 98 Room Air PG Care Time/CCT Total # of Minutes Spent Total Time Spent with Patient: Total time spent is greater than 50% in coordination of care (as documented) at patient's floor/unit and/or counseling patient: Coding Level of Care Code 79606 SUB INP/OBS CARE 3/50MIN Diagnoses BERE (acute kidney injury) N17.9 Stage 3b chronic kidney disease N18.32 Morbid obesity E66.01 Weakness R53.1 Normal anion gap metabolic acidosis E87.20
[2025-08-19] MEDS ORDERED: LOPERAMIDE HCL 2 MG CAP PO PRN (11:41)
[2025-08-19] MEDS: LOPERAMIDE HCL 2 MG CAP PO PRN (11:51)
[2025-08-19] MEDS: SODIUM BICARBONATE 650 MG TAB PO SCH (11:53)
[2025-08-19] MEDS: PLASMA-LYTE A 1,000 ML IV SCH (12:12)
--- NOTE | 2025-08-19 14:50 | Psychiatric Consultation ---
Date of Consultation August 19, 2025 Impression / Recommendations Impression Diagnostically consistent with OCD with significant reassurance seeking as part of her compulsions and illness anxiety disorder. Unfortunately her OCD and illness anxiety seem to contribute to at times excessive medical workups and her fears about managing independently in the outpatient setting due to need for frequent reassurance. However, even here in the hospital, and despite hearing from the RN and hospitalist provider that she is getting the appropriate bloodwork and medications she continues to seek excessive reassurance and ask the same questions repeatedly. She also requests help for her OCD symptoms but then refuses medication options due to fears about possible unknown side effects or potential interactions. Acute risk of self-harm is low given denial of SI, future-oriented, wants to be alive. In OCD and anxiety providing constant reassurance is counter-therapeutic as it does not lessen the subjective experience of the anxiety and can worsen the pattern of reassurance seeking/endless cycle of seeking reassurance. Therefore setting firm and caring boundaries is recommended and can help lessen OCD symptoms over time. Reviewed recommendation for outpatient exposure-response prevention and outpatient psychiatry, she's going to consider this. She wants to focus on physical rehab. Discussed medications for OCD, she consents to increasing her sertraline and trial of abilify. Reviewed that OCD sometimes requires sertraline doses above FDA max of 200mg and she's like to try this. Also reviewed abilify, as antipsychotic option that used off-label can help with OCD symptoms. Goal for longer-term taper of ativan. Reviewed side effects including but not limited to movement (TD, NMS), cardiac (QTc prolongation), and metabolic (stroke, insulin resistance) and necessity for fasting lipid and glucose labwork and AIMS done with score of 0 with abilify. Her QTc is slightly prolonged but remains <500ms so felt to be safe to proceed with abilify and increased sertraline especially given her ongoign distress from OCD symptoms. Recommend ongoing monitoring of EKG to ensure QTc remains <500ms. Overall, I spent a total of 80 minutes with this case including review of chart records, review of labwork, review of EKG QTc, direct evaluation of the patient at bedside, counseling the patient, discussion of the patient with the Nurse and with the hospitalist provider, discussion with the psychiatric liason during clinical rounds and documentation in the electronic health record. (1) Obsessive compulsive disorder: (2) Illness anxiety disorder: (3) Weakness: Plan -Set caring but firm boundaries to avoid providing continual reassurance which can worsen OCD rather than help it. Consider checking in every 30 minutes to help lessen her anxiety and attempt to answer her questions once but then limiting discussion if she begins to ask the same question over and over after an answer and explanation have already been provided. provide educational handouts or medication side effects information where appropriate so that she can reference these if anxiety/OCD worsens after initial discussions. -Increase sertraline to 250mg daily -Start abilify 5mg daily -Can use ativan 1mg po or IV prn for anxiety -Psych liason to provide information for outpatient therapy and psychiatry that she can set up after completing physical rehab as timing of this remains unclear -Repeat EKG in 1-2 days to ensure QTc remains <500ms with new psychotropic medication adjustments, repeat as needed Psych History Identifying Data Desiree is a 49 yo woman with a history of OCD, HLD, anxiety, GERD, iron deficiency, HTN presents to the hospital because her legs were giving out leading to falls and wanting to consider rehab or fci placement. Psychiatry consulted for OCD and anxiety. Chief Complaint "I'm afraid I'm going to ". History of Present Illness Desiree describes a long history of OCD with recurrent fears that she is going to . her symptoms have worsened since the of her mother, who was her main support, and recent health issues including pneumonia and then a kidney stone and subsequent kidney issues. She agrees that she seeks frequent reassurance from nurses, physicians and outpatient providers that she is not dying. Reflects that when she has IBS flares, which she attributes potentially to her stress, she fears she is losing weight due to cancer though knows it's likely water weight. States "It's very hard to live in my head". Reflects that "I call 20,000 times until the doctors get sick of me, I don't mean to" and recalls a provider telling her "I've had the 2 million dollar workup because I always worry something is going on". Describes her frequent medical procedures in the past. She agrees with her OCD diagnosis stating "I do have OCD and it's bad". She is future-oriented and denies SI. She is hopeful for physical rehab to improve her strength. She has no current outpatient psychiatric nor therapy providers. Has never done ERP. Has been on sertraline for many years, she feels it is ineffective. Buspar she finds ineffective. Takes ativan 1mg TID for the last few months with some relief. Allergies Allergy/AdvReac Type Severity Reaction Status Date / Time adhesive tape Allergy Severe Redness of Verified 02/27/25 13:16 Skin Penicillins Allergy Severe Rash Verified 02/27/25 13:16 aspirin AdvReac Severe Advised to Verified 02/27/25 13:16 avoid "due to angioma" blood thinner AdvReac Severe Advised to Uncoded 02/27/25 13:16 avoid "due to angioma" Home Medications Medication Instructions Recorded Confirmed Type cholecalciferol (vitamin D3) 50 50 mcg PO QAM 11/18/20 08/18/25 History mcg (2,000 unit) capsule cyanocobalamin (vitamin B-12) 500 1,000 mcg PO .Q OTHER DAY IN AM 11/18/20 08/18/25 History mcg tablet acetazolamide 500 mg 500 mg PO BID 09/23/22 08/18/25 History capsule,extended release sertraline 100 mg tablet 200 mg PO QAM 09/23/22 08/18/25 History topiramate 200 mg tablet 200 mg PO BID 09/23/22 08/18/25 History famotidine 20 mg tablet (Pepcid) 20 mg PO HS 11/04/22 08/18/25 History sitagliptin phosphate 50 mg tablet 50 mg PO HS 12/01/22 08/18/25 History (Januvia) ferrous sulfate 325 mg (65 mg 325 mg PO QPM 04/23/23 08/18/25 History iron) tablet (iron) lisinopril 5 mg tablet 5 mg PO HS 04/23/23 08/18/25 History ascorbic acid (vitamin C) 500 mg 500 mg PO BID 04/21/24 08/18/25 History tablet,extended release (Vitamin C With Uyen Hips) atorvastatin 10 mg tablet (Lipitor) 10 mg PO HS 04/21/24 08/18/25 History buspirone 30 mg tablet 30 mg PO BID 04/21/24 08/18/25 History hydrocortisone 2.5 % topical cream 1 applic PA BID PRN hemorrhoids 04/21/24 08/18/25 History with perineal applicator nystatin 100,000 unit/gram topical 1 applic topical DAILY 01/17/25 08/18/25 History powder solifenacin 10 mg tablet (Vesicare) 10 mg PO QAM #30 tabs 08/15/25 08/18/25 Rx clindamycin phosphate 1 % lotion 1 applic topical DAILY PRN 08/18/25 08/18/25 History inflammed boils hyoscyamine sulfate 0.375 mg 0.375 mg PO TID 08/18/25 08/18/25 History tablet,extended release,12 hr loperamide 2 mg capsule (Imodium 2 mg PO Q4H PRN Diarrhea 08/18/25 08/18/25 History A-D) lorazepam 1 mg tablet 1 mg PO Q8H 08/18/25 08/18/25 History omeprazole 40 mg capsule,delayed 40 mg PO BID 08/18/25 08/18/25 History release psyllium 1 packet PO DAILY 08/18/25 08/18/25 History Patient History Medical History Encounter for pre-operative examination UTI (urinary tract infection) (07/04/24) seen at [facility] ED on 07/04/24, Urology office to send records, pt. given script for macrobid, will start first dose tonight History of recent hospitalization Admitted after 05/16/24 urology surgery; D/C 05/19/24; received 1 unit PRBCs 05/18/24 Boil of groin pt described hx of "boils" around perineum area, states worsen with stress. has had these get infected in past with purulent drainage requiring abx. has clindaymycin ointment to use. Hx of colonic polyps History of postoperative nausea and vomiting Thrombocytopenia (04/2024) dx during 04/2024 admission [facility]; mild; monitoring History of recent fall 05/04/24, while amb w/ walker while inpt at [facility]. no loc, no head strike Arthritis Left nephrolithiasis Hemorrhoids occasional bleeding Ureteral stent present (06/06/24) Iron deficiency anemia monitored during inpt admission 04/2024. Iron was low; pt had been off of iron supplement and it was resumed. No signs of GI bleed. Per D/C summary: "She denies any dizziness. No hypotension. No indication for blood transfusion. Pt advised to f/u with PCP outpt. During 05/2024 admission, pt received 1 unit PRBCs on 05/18/24 and advised to f/u with PCP 1 week after hospital D/C Angioma brain angioma -- follows with [facility] neurology Osteoarthritis Diabetes mellitus, type 2 NIDDM Chronic sinusitis Staghorn calculus current - left side (had procedure 03/2024 in [place] and 04/2024 and 05/2024 [facility] for this) History of recurrent UTI (urinary tract infection) Legally blind VANDANA (obstructive sleep apnea) Bipap at night; not using currently Hx of necrotizing fasciitis (2017) unknown cause. IBS (irritable bowel syndrome) GERD (gastroesophageal reflux disease) Pseudotumor cerebri follows with [facility] Neurology Orthopnea occasional Overactive bladder Anxiety severe Depression OCD (obsessive compulsive disorder) severe - pt. would only participate in PAT phone assessment with "ita" from Dr. Trujillo office on phone with her Morbid obesity with BMI of 70 and over, adult Asthma well controlled Surgical History Hx of colonoscopy with polypectomy (05/2023) History of cystoscopy (06/06/24) multiple cystoscopy and lithotripsy/ stent procedures. most recent 06/06/24 History of open reduction and internal fixation (ORIF) procedure LLE - as a chhild History of tonsillectomy History of x2 History of cholecystectomy History of surgery (2016) RLE x 7 surgeries r/t necrotizing fasciitis Family History Other Bladder cancer No family history of adverse response to anesthesia Social History Smoking Status: Former smoker Tobacco Type: Cigarettes Second Hand Exposure: No; Do You Dip or Chew Tobacco: No; Hx Alcohol Use: No Hx Substance Use: No Preferred Language: Mohawk Communication Ability: Effective Communication Ability Comment: extremely anxious Visual Impairment: Blindness Hearing Ability: Normal Flavoring Maker Required: No Beliefs That Will Affect Care: None Current Living Situation: Family Current Living Situation Comment: lives in an apartment with boyfriend and 2 sons How many Children do You have: 2 Feels Safe at Home: Yes Diet: regular caffeine: Yes (diet sweet tea. occasional pepsi) Dental Care, Regularly: No Physical Activity Frequency: Does not Exercise Seatbelt Use: always Do you think of yourself as: straight/heterosexual Gender Identity: Female Assistive Devices: Walker Physical Exam Vital Signs (Past 24 Hours): Last Vital Signs Temp 36.7 C 08/19/25 11:57 Pulse 81 08/19/25 11:57 Resp 16 08/19/25 11:57 BP 112/63 08/19/25 11:57 Pulse Ox 98 08/19/25 11:57 O2 Del Method Room Air 08/19/25 11:57 Results & Data (PSY) Medications Administered Ascorbic Acid (Ascorbic Acid 500 Mg Tab) 500 mg PO BID [facility] Stop: 09/17/25 20:59 Last Admin: 08/19/25 08:23 Dose: 500 mg Documented By: Admin: 08/18/25 21:45 Dose: 500 mg Documented By: MED Atorvastatin Calcium (Atorvastatin 10 Mg Tab) 10 mg PO HS [facility] Stop: 09/17/25 20:59 Last Admin: 08/18/25 21:46 Dose: 10 mg Documented By: MED Buspirone HCl (Buspirone 15 Mg Tab) 30 mg PO BID [facility] Stop: 09/17/25 20:59 Last Admin: 08/19/25 08:29 Dose: 30 mg Documented By: Admin: 08/18/25 21:47 Dose: 30 mg Documented By: MED Calamine/Pramoxine (Calamine/Pramoxine Lotion 180 Appln/180 Ml Btl) 1 appln EXT BID PRN PRN Reason: Itching Stop: 09/17/25 21:54 Last Admin: 08/18/25 22:43 Dose: 1 appln Documented By: MED Cyanocobalamin (Cyanocobalamin (B-12) 500 Mcg Tablet) 1,000 mcg PO Q48H [facility] Stop: 09/18/25 08:59 Last Admin: 08/19/25 08:28 Dose: Not Given Documented By: MTM Enoxaparin Sodium (Enoxaparin Inj 40 Mg/0.4 Ml Syr) 40 mg SQ QAM [facility]; Protocol Stop: 09/18/25 08:59 Last Admin: 08/19/25 08:32 Dose: Not Given Documented By: MTNaheed Famotidine (Famotidine 20 Mg Tab) 20 mg PO [facility] Stop: 09/17/25 20:59 Last Admin: 08/18/25 21:44 Dose: 20 mg Documented By: AFRICA Hyoscyamine (Hyoscyamine Sulfate 0.375 Mg Tabcr) 0.375 mg PO TID [facility] Stop: 09/17/25 20:59 Last Admin: 08/19/25 08:32 Dose: Not Given Documented By: Admin: 08/18/25 23:52 Dose: 0.375 mg Documented By: MED Parenteral Electrolytes (Plasma-Lyte A Ph 7.4) 1,000 mls @ 80 mls/hr IV .[id number] [facility] Stop: 08/20/25 10:44 Last Admin: 08/19/25 12:12 Dose: 80 mls/hr Documented By: MTNaheed Insulin Aspart (Insulin Aspart Per Unit Charge) 0 units SC [facility] Stop: 09/17/25 20:59 Last Admin: 08/19/25 13:11 Dose: Not Given Documented By: Admin: 08/19/25 10:42 Dose: Not Given Documented By: Admin: 08/18/25 21:12 Dose: Not Given Documented By: AFRICA Co-signed By: QAMAR Lisinopril (Lisinopril 5 Mg Tab) 5 mg PO [facility] Stop: 09/17/25 20:59 Last Admin: 08/18/25 21:45 Dose: 5 mg Documented By: AFRICA Loperamide HCl (Loperamide Hcl 2 Mg Cap) 4 mg PO BID PRN PRN Reason: Diarrhea Stop: 09/18/25 11:44 Last Admin: 08/19/25 11:51 Dose: 4 mg Documented By: MTNaheed Lorazepam (Lorazepam 1 Mg Tab) 1 mg PO Q8H [facility] Stop: 09/17/25 22:59 Last Admin: 08/19/25 08:10 Dose: 1 mg Documented By: Admin: 08/19/25 07:42 Dose: Not Given Documented By: Admin: 08/18/25 23:52 Dose: 1 mg Documented By: AFRICA Nystatin (Nystatin Powder 15gm Btl) 1 appln EXT BID PRN PRN Reason: Itching Stop: 09/17/25 20:45 Last Admin: 08/18/25 22:43 Dose: 1 appln Documented By: MED Oxybutynin Chloride (Oxybutynin Chloride Xl 5 Mg Tabcr) 10 mg PO [facility]; Protocol Stop: 09/18/25 08:59 Last Admin: 08/19/25 08:32 Dose: Not Given Documented By: MTNaheed Pantoprazole Sodium (Pantoprazole 40 Mg Tab) 40 mg PO BID [facility]; Protocol Stop: 09/17/25 20:59 Last Admin: 08/19/25 08:32 Dose: Not Given Documented By: Admin: 08/18/25 21:41 Dose: Not Given Documented By: MED Psyllium Hydrophilic Mucilloid (Psyllium Husk 4gm Packet) 4 gm PO DAILY [facility] Stop: 09/18/25 08:59 Last Admin: 08/19/25 10:19 Dose: 4 gm Documented By: Admin: 08/19/25 08:19 Dose: 4 gm Documented By: KIN Sertraline HCl (Sertraline Hcl 100 Mg Tablet) 200 mg PO [facility] Stop: 09/18/25 08:59 Last Admin: 08/19/25 08:25 Dose: 200 mg Documented By: KIN Sodium Bicarbonate (Sodium Bicarbonate 650 Mg Tab) 650 mg PO BID [facility] Stop: 09/18/25 10:44 Last Admin: 08/19/25 11:53 Dose: 650 mg Documented By: KIN Topiramate (Topiramate 100 Mg Tab) 200 mg PO BID [facility] Stop: 09/17/25 20:59 Last Admin: 08/19/25 08:22 Dose: 200 mg Documented By: MTNaheed Admin: 08/18/25 21:44 Dose: 200 mg Documented By: MED Vitamin D (Cholecalciferol 25 Mcg (1000 Units) Tab) 50 mcg PO [facility] Stop: 09/18/25 08:59 Last Admin: 08/19/25 08:25 Dose: 50 mcg Documented By: KIN Coding Level of Care Code 40342 IN/OBS CONSULT LVL 5,80M Diagnoses Obsessive compulsive disorder F42.9 Illness anxiety disorder F45.21 Weakness R53.1
[2025-08-19] MEDS: ARIPiprazole 5 MG TAB PO SCH (15:30)
[2025-08-19] MEDS: FERROUS SULFATE 325 MG TAB PO SCH (17:15)
[2025-08-20] MEDS: ACETAMINOPHEN 325 MG TAB PO PRN (02:09)
[2025-08-20] MEDS: LORazepam Inj 1 MG in SYRINGE 0.5 ML IV ONE (06:58)
[2025-08-20 07:06] LABS: Hematocrit (blood only) 28.3 % (37.0-47.0); Hemoglobin 8.2 g/dl (12.0-16.0); Mean Corpuscular Hemoglobin 24.8 pg (25.0-34.0); Mean Corpuscular Volume 85.8 fL (80.0-100.0); Platelet Count 100 K/uL (130-400); RDW Standard Deviation 54.4 fL (36.4-46.3); Red Blood Count 3.30 M/uL (4.20-5.40); White Blood Count 5.68 K/ul (4.8-10.8)
[2025-08-20 07:31] LABS: Anion Gap 9.0 (3-11); Blood Urea Nitrogen 30.0 mg/dl (6-23); Calcium 8.5 mg/dl (8.6-10.3); Carbon Dioxide 14.0 mmol/L (21-32); Chloride 121.0 mmol/L (98-107); Creatinine Clr Calc Pharmacy 39.2 ml/min; Glucose 94.0 mg/dl (70-99(Fasting)); Magnesium 2.1 mg/dl (1.7-2.4); Potassium 3.8 mmol/L (3.5-5.1); Sodium 144.0 mmol/L (136-145)
[2025-08-20] MEDS: SERTRALINE HCL 50 MG TABLET PO SCH (08:00)
--- NOTE | 2025-08-20 08:07 | Hospitalist Progress Note ---
Date of Service August 20, 2025 Assessment & Plan (1) BERE (acute kidney injury): (2) Stage 3b chronic kidney disease: (3) Morbid obesity: (4) Weakness: (5) Normal anion gap metabolic acidosis: Plan 49 yr old F with PMHx of OCD, HLD, anxiety, GERD, iron deficiency, HTN, pseudotumor cerebri with papilledema of left eye, staghorn calculus presents to the hospital because her legs were giving out leading to falls. She stated she wants to be evaluated for rehab or skilled nursing placement. #BERE #Normal anion gap metabolic acidosis #Hyperchloremia - contributors to acidosis (topiramate and diamox) - s/p 1L bolus in the ED - initiated on sodium bicarb 650mg BID - spoke with neurology, recs reduced dose of diamox - cont plasmalyte infusion - encourage oral hydration - reassess BMP in the AM - if persisting, will request nephrology eval #Pseudotumor cerebri with h/o papilledema of the left eye - pt follows with neurology in [place] - pt is blind in the left and blurry vision the right (vision is unchanged) - she is already on topiramate - neuro recs appreciated - diamox resumed at 50% reduced dose , will need outpatient follow up with ophthalmology #Recurrent falls - fall precautions - PT / OT recs rehab #Abnormal UA #Staghorn calculus - pt does not have leukocytosis, fever, dysuria, confusion - ID note reviewed from 07/16/25, recommends no further treatment for UTI unless pt is symptomatic (pain, dysuria, fever / chills, confusion). Given pt has no symptom, will hold off on further treatment - UCx: more than 3 types of organism present #Chronic anemia - in the setting of CKD, chronic disease - Hgb stable, monitor at this time #Thrombocytopenia - Plt 136 on admission, currently 100 - cont to monitor, if significantly decline, will request Heme eval #HLD - cont statin #OCD #Anxiety - cont buspirone - psych recs appreciated- recommend increasing sertraline 200mg to 250mg and adding abilify 5mg po daily (08/19- pt did refuse to take Abilify and wanted to wait until 08/20) - EKG ordered for 08/21 #DM II - hold sitagliptin - sens correctional scale - A1c: 5 - hypoglycemic protocol #DVT ppx - lovenox subq #Dispo- resolution of metabolic acidosis, neurology eval #Code status: Full code Admission and Anticipated Discharge Date Admission Date: August 18, 2025 Subjective no acute events overnight pt did not sleep well this morning, still refusing to take abilify Review of Systems Review of Systems: Comprehensive ROS completed and is otherwise negative. Physical Exam Physical Exam: Gen: obese female, no acute distress, lying in bed comfortable HEENT: NC/AT, MMM Lungs: nonlabored breathing, CTAB CVS: s1s2nl, RRR Abd: nl bowel sounds, soft, NT / ND : no awad Ext: no edema Neuro: awake, alert Psych: anxious, repetitive, but overall cooperative Results & Data Results & Data Vital Signs (Past 12 Hours) Vital Signs Temp Pulse Pulse Pulse Resp BP Pulse Ox 08/20/25 07:35 36.8 C 83 18 109/63 99 08/20/25 06:45 79 08/20/25 03:33 36.6 C 82 18 110/65 97 08/20/25 00:37 36.7 C 82 20 105/57 L 97 08/20/25 00:00 120 H 08/19/25 21:00 08/19/25 20:05 36.3 C L 80 18 102/62 97 O2 Del Method 08/20/25 07:35 Room Air 08/20/25 06:45 08/20/25 03:33 Room Air 08/20/25 00:37 Room Air 08/20/25 00:00 08/19/25 21:00 Room Air 08/19/25 20:05 Room Air PG Care Time/CCT Total # of Minutes Spent Total Time Spent with Patient: Total time spent is greater than 50% in coordination of care (as documented) at patient's floor/unit and/or counseling patient: Coding Level of Care Code 61183 SUB INP/OBS CARE 3/50MIN Diagnoses BERE (acute kidney injury) N17.9 Stage 3b chronic kidney disease N18.32 Morbid obesity E66.01 Weakness R53.1 Normal anion gap metabolic acidosis E87.20
--- NOTE | 2025-08-20 10:06 | Neurology Consultation ---
Date of Consultation August 20, 2025 Assessment & Plan (1) Pseudotumor cerebri: (2) Cavernous angioma: (3) Weakness: (4) OCD (obsessive compulsive disorder): Plan Patient carries a longstanding diagnosis of pseudotumor cerebri now essentially blind. She has been on acetazolamide for years and I am not certain she even has increased intracranial pressure still. Is not having headaches. I predict the patient really does not have increased intracranial pressure anymore. The patient apparently has a cavernous angioma that may have bled in the past but have no details regarding this. She has no history of seizures and remains on topiramate. The patient has weakness in the legs likely from disuse and she falls. An underlying polyneuropathy cannot be excluded. Her severe anemia contributes to her sense of weakness also. Patient has severe OCD and anxiety on medication. This apparently is adequately controlled. She saw Dr. Huber, psychiatry, who initiated Abilify 5 mg daily for her conditions. Recommendations: 1. The patient would have to see an pipe line gauger or airconditioning plant operator to see if there is still any evidence of increased intracranial pressure. If not, she does not need acetazolamide. If there is, she could continue on acetazolamide or switch to Dyazide daily. 2. For now, I would decrease acetazolamide to 250 mg twice a day and have her follow-up with her eye doctor as an outpatient. side effects tend to be dose dependent 3. For now, continue topiramate 200 mg twice a day. Not certain what the main reason she is for this but she is worried about seizures from her cavernous angioma. She does not want an MRI of the brain to evaluate this issue. Topiramate can also act as a mood stabilizer and help with weight loss. 4. Consider EMG and nerve conduct study of the legs as an outpatient (I cannot do this study as an inpatient). 5. Otherwise physical and Occupational Therapy with gait training. 6. The patient cannot go home as she is not managing well and frequent falling. She will need to be placed or perhaps go to a rehabilitation hospital temporarily, if she qualifies. 7. Neurology can follow-up as an outpatient if desired (PA 2 to 3 weeks after discharge) 8. Weight loss would help her central nervous system and her ability to ambulate. Overall, I spent a total of 75 minutes with this case including review of records, direct evaluation of the patient, report generation, and discussion of the case with the patient and RN at bedside as well as Dr. Lopez including differential diagnosis and treatment options. History of Present Illness Reason for Consultation: Patient is a 49-year-old who I was asked to see at the request of Dr. Lopez, for neurologic consultation regarding pseudotumor diagnosis Requesting Physician: Following John Farfan Attending Physician: Goldie Lopez MD History of Present Illness Although I do not have any old records, the patient tells me that since her mid to late 30s she was diagnosed with pseudotumor cerebri. She went to the eye doctor (never really had headaches, but had vision issues. She ended up not seeking the medical care she should have and she started to lose vision. By the time she saw Dr. Mora, neurologist in [place], she had significantly lost vision in her eyes. 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 For the last 10 years or so since she first saw Dr. Mora, she has been on acetazolamide and topiramate. Currently she has no headaches of significance and has not been to the eye doctor in quite some time. She states that she sees an airconditioning plant operator, Dr. Radha Santiago, in [facility] but has not seen her recently. She is uncertain whether she continues to have pressure in her eyes or not (however she states that the last time she saw an eye doctor she remembers them saying there was not pressure). Nevertheless, she has stayed on acetazolamide 500 mg twice a day. The patient has a history of cavernous angioma in the brain (uncertain location but she says in the back of the brain). This may have bled once based on imaging results she tells me about. She has never had any seizures but has been on the topiramate 200 mg twice daily. Patient has been having recurrent falls and feels weak particularly in her legs. She has frequent urinary tract infections and has severe OCD, anxiety, and depression. She receives sertraline 200 mg in the morning and buspirone 30 mg twice a day for her mood which is still not adequately controlled. She has seen psychiatry in the past but does not see them currently. Patient came to the emergency room August 18 for the weakness and inability to care for herself at home. At 08 temperature was 36.5, pulse 85 and regular, respirate 18, blood pressure 111/60, and O2 saturation 94%. Her neurologic examination was largely nonfocal in the emergency room but she was very anxious. She is quite concerned that she may have something that she will from. Hemoglobin on August 18 with 9.0 and hematocrit 30.7. BUN was 32 and creatinine was 2.71. Urine was contaminated and repeat urinalysis was unremarkable. Hemoglobin A1c was 5.0. Laboratory studies August 20 showed a BUN of 30 and creatinine of 2.7. Hematocrit was 28 and hemoglobin 8.2. Allergies Allergy/AdvReac Type Severity Reaction Status Date / Time adhesive tape Allergy Severe Redness of Verified 02/27/25 13:16 Skin Penicillins Allergy Severe Rash Verified 02/27/25 13:16 aspirin AdvReac Severe Advised to Verified 02/27/25 13:16 avoid "due to angioma" blood thinner AdvReac Severe Advised to Uncoded 02/27/25 13:16 avoid "due to angioma" Home Medications Medication Instructions Recorded Confirmed Type cholecalciferol (vitamin D3) 50 50 mcg PO QAM 11/18/20 08/18/25 History mcg (2,000 unit) capsule cyanocobalamin (vitamin B-12) 500 1,000 mcg PO .Q OTHER DAY IN AM 11/18/20 08/18/25 History mcg tablet acetazolamide 500 mg 500 mg PO BID 09/23/22 08/18/25 History capsule,extended release sertraline 100 mg tablet 200 mg PO QAM 09/23/22 08/18/25 History topiramate 200 mg tablet 200 mg PO BID 09/23/22 08/18/25 History famotidine 20 mg tablet (Pepcid) 20 mg PO HS 11/04/22 08/18/25 History sitagliptin phosphate 50 mg tablet 50 mg PO HS 12/01/22 08/18/25 History (Januvia) ferrous sulfate 325 mg (65 mg 325 mg PO QPM 04/23/23 08/18/25 History iron) tablet (iron) lisinopril 5 mg tablet 5 mg PO HS 04/23/23 08/18/25 History ascorbic acid (vitamin C) 500 mg 500 mg PO BID 04/21/24 08/18/25 History tablet,extended release (Vitamin C With Uyen Hips) atorvastatin 10 mg tablet (Lipitor) 10 mg PO HS 04/21/24 08/18/25 History buspirone 30 mg tablet 30 mg PO BID 04/21/24 08/18/25 History hydrocortisone 2.5 % topical cream 1 applic [place] BID PRN hemorrhoids 04/21/24 08/18/25 History with perineal applicator nystatin 100,000 unit/gram topical 1 applic topical DAILY 01/17/25 08/18/25 History powder solifenacin 10 mg tablet (Vesicare) 10 mg PO QAM #30 tabs 08/15/25 08/18/25 Rx clindamycin phosphate 1 % lotion 1 applic topical DAILY PRN 08/18/25 08/18/25 History inflammed boils hyoscyamine sulfate 0.375 mg 0.375 mg PO TID 08/18/25 08/18/25 History tablet,extended release,12 hr loperamide 2 mg capsule (Imodium 2 mg PO Q4H PRN Diarrhea 08/18/25 08/18/25 History A-D) lorazepam 1 mg tablet 1 mg PO Q8H 08/18/25 08/18/25 History omeprazole 40 mg capsule,delayed 40 mg PO BID 08/18/25 08/18/25 History release psyllium 1 packet PO DAILY 08/18/25 08/18/25 History Patient History Medical History (Updated 08/20/25 @ 10:49 by Daniel Carson MD) Cavernous angioma Encounter for pre-operative examination UTI (urinary tract infection) (07/04/24) seen at [facility] ED on 07/04/24, Urology office to send records, pt. given script for macrobid, will start first dose tonight History of recent hospitalization Admitted after 05/16/24 urology surgery; D/C 05/19/24; received 1 unit PRBCs 05/18/24 Boil of groin pt described hx of "boils" around perineum area, states worsen with stress. has had these get infected in past with purulent drainage requiring abx. has clindaymycin ointment to use. Hx of colonic polyps History of postoperative nausea and vomiting Thrombocytopenia (04/2024) dx during 04/2024 admission [facility]; mild; monitoring History of recent fall 05/04/24, while amb w/ walker while inpt at [facility]. no loc, no head strike Arthritis Left nephrolithiasis Hemorrhoids occasional bleeding Ureteral stent present (06/06/24) Iron deficiency anemia monitored during inpt admission 04/2024. Iron was low; pt had been off of iron supplement and it was resumed. No signs of GI bleed. Per D/C summary: "She denies any dizziness. No hypotension. No indication for blood transfusion. Pt advised to f/u with PCP outpt. During 05/2024 admission, pt received 1 unit PRBCs on 05/18/24 and advised to f/u with PCP 1 week after hospital D/C Angioma brain angioma -- follows with [facility] neurology Osteoarthritis Diabetes mellitus, type 2 NIDDM Chronic sinusitis Staghorn calculus current - left side (had procedure 03/2024 in [place] and 04/2024 and 05/2024 [facility] for this) History of recurrent UTI (urinary tract infection) Legally blind VANDANA (obstructive sleep apnea) Bipap at night; not using currently Hx of necrotizing fasciitis (2016) unknown cause. IBS (irritable bowel syndrome) GERD (gastroesophageal reflux disease) Pseudotumor cerebri follows with [facility] Neurology Orthopnea occasional Overactive bladder Anxiety severe Depression OCD (obsessive compulsive disorder) severe - pt. would only participate in PAT phone assessment with "ita" from Dr. Trujillo office on phone with her Morbid obesity with BMI of 70 and over, adult Asthma well controlled Surgical History Hx of colonoscopy with polypectomy (05/2023) History of cystoscopy (06/06/24) multiple cystoscopy and lithotripsy/ stent procedures. most recent 06/06/24 History of open reduction and internal fixation (ORIF) procedure LLE - as a chhild History of tonsillectomy History of x2 History of cholecystectomy History of surgery (2017) RLE x 7 surgeries r/t necrotizing fasciitis Family History Other Bladder cancer No family history of adverse response to anesthesia Social History Smoking Status: Former smoker Tobacco Type: Cigarettes Second Hand Exposure: No; Do You Dip or Chew Tobacco: No; Hx Alcohol Use: No Hx Substance Use: No Preferred Language: Kazakh Communication Ability: Effective Communication Ability Comment: extremely anxious Visual Impairment: Blindness Hearing Ability: Normal [facility] Director Required: No Beliefs That Will Affect Care: None Current Living Situation: Family Current Living Situation Comment: lives in an apartment with boyfriend and 2 sons How many Children do You have: 2 Feels Safe at Home: Yes Diet: regular caffeine: Yes (diet sweet tea. occasional pepsi) Dental Care, Regularly: No Physical Activity Frequency: Does not Exercise Seatbelt Use: always Do you think of yourself as: straight/heterosexual Gender Identity: Female Assistive Devices: Walker Review of Systems Constitutional: + fatigue and + weakness; no fever Eyes: + problem reported (Blind in left eye an d legally blind in the right eye); no diplopia, no eye pain and no worsening vision Ear, Nose, Mouth, Throat: no ear pain, no tinnitus, no hearing loss, no dizziness, no snoring, no hoarseness and no dysphagia Respiratory: no cough and no dyspnea Cardiovascular: no chest pain, no palpitations and no lightheadedness Gastrointestinal: no abdominal pain, no nausea and no vomiting Genitourinary: no dysuria, no urinary frequency and no urinary incontinence Musculoskeletal: no back pain, no neck pain, no radicular pain, no joint pain and no myalgia Integumentary: no rash and no lesions Neurologic: + gait abnormality and + falls; no local ized weakness, no generalized weakness, no tingling, no numbness, no tremor(s), no abnormal movements, no headache(s), no abnormal speech, no confusion and no memory loss Psychiatric: + depression, + anxiety and + problem re ported (Severe OCD,); no irritability, no difficulty concentrating, no confusion and no hallucinations Endocrine: no fatigue and no flushing Hematologic / Lymphatic: no easy bleeding and no easy bruising Allergy / Immunological: no urticaria and no problem reported Exam (Neuro) Physical Exam: The patient is right-handed. The patient is awake, alert, and attentive. Speech is normal without any aphasia or dysarthria. Mentation and thought processes are intact, with full orientation and normal fund of knowledge. Mood is reasonable and affect is appropriate. She is quite anxious but pleasant and cooperative. Appearance and grooming are normal. Short and long-term memory are reasonable to conversation. Pupils are 4 mm bilaterally and reactive to light. Extraocular eye muscles are intact without nystagmus. Patient can see lights and shadows but nothing more. There are no deficits to sensation in the face in all 3 distributions of the fi fth cranial nerve bilaterally. Corneal reflexes are positive bilaterally. Facial strength and symmetry was normal bilaterally. Hearing seems intact grossly to voice and finger rub bilaterally. Palate moves well without asymmetry. There is normal sternocleidomastoid and trapezius strength bilaterally. Tongue is midline with good strength bilaterally. Neck has a full range of motion without discomfort. There are no cervical bruits bilaterally. There are no cranial or ocular bruits. Heart is without murmur. There is a regular rhythm and rate. Cervical, thoracic, and lumbar spine are nontender to palpation. Gait is not tested. Stands sitting up in bed is poor With outstretched arms there is no drift. There are no resting, postural, or action tremors. There is no ataxia with finger to nose testing. There is good facility in the hands. No other abnormal involuntary movements are noted. Motor strength is 5/5 diffusely in the arms bilaterally including deltoids, biceps, triceps, brachioradialis, wrist flexors and extensors, aircraft refueller, and intrinsic hand muscles. Motor strength is essentially 5/5 in the legs bilaterally including gastrocnemius, tibialis anterior, tibialis posterior, and Peroneii muscles bilaterally. Hip flexors, quadriceps, and hamstring are 4/5. toe extensors are normal and there is good bulk in the extensor digitorum brevis muscles bilaterally. The limbs have good tone without rigidity or spasticity. There is no atrophy noted in the muscles. Muscle bulk is normal, there is no tenderness to palpation, no myotonia to percussion, and no fasciculations seen. Sensory examination is intact to touch and pin throughout all 4 limbs diffusely. Reflexes are 2/4 in the biceps, triceps, brachioradialis, quadriceps, and Achilles tendons bilaterally. Toes are downgoing with plantar stimulation bilaterally. Peripheral pulses are present and of normal quality distally in all 4 limbs. There is no peripheral edema noted in the limbs. Results & Data Vital Signs (Past 12 Hours) Vital Signs Temp Pulse Pulse Pulse Resp BP Pulse Ox 08/20/25 07:35 36.8 C 83 18 109/63 99 08/20/25 06:45 79 08/20/25 03:33 36.6 C 82 18 110/65 97 08/20/25 00:37 36.7 C 82 20 105/57 L 97 08/20/25 00:00 120 H O2 Del Method 08/20/25 07:35 Room Air 08/20/25 06:45 08/20/25 03:33 Room Air 08/20/25 00:37 Room Air 08/20/25 00:00 PG Care Time/CCT Total # of Minutes Spent Total Time Spent with Patient: Total time spent is greater than 50% in coordination of care (as documented) at patient's floor/unit and/or counseling patient: Coding Level of Care Code 62396 INT INP/OBS CARE 3/75MIN Diagnoses Pseudotumor cerebri G93.2 Cavernous angioma D18.00 Weakness R53.1 OCD (obsessive compulsive disorder) F42.9 Time Spent (min) 75
[2025-08-20] MEDS: PLASMA-LYTE A 1,000 ML IV SCH (14:20)
[2025-08-20] MEDS: PSYLLIUM HUSK 4GM PACKET PO ONE (17:05)
[2025-08-20 17:08] LABS: Base Excess VBG -13.4 mEq/L; HCO3 VBG 12 mmol/L; Oxygen Saturation VBG 89.4 %; PCO2 VBG 28 mmHg (38-50); PO2 VBG 56 mmHg; pH VBG 7.25 (7.36-7.41)
[2025-08-20] MEDS: acetaZOLAMIDE 250 MG TAB PO SCH (20:36)
[2025-08-21 07:27] LABS: Hematocrit (blood only) 26.6 % (37.0-47.0); Hemoglobin 8.1 g/dl (12.0-16.0); Mean Corpuscular Hemoglobin 25.9 pg (25.0-34.0); Mean Corpuscular Volume 85.0 fL (80.0-100.0); Platelet Count 122 K/uL (130-400); RDW Standard Deviation 54.4 fL (36.4-46.3); Red Blood Count 3.13 M/uL (4.20-5.40); White Blood Count 5.43 K/ul (4.8-10.8)
[2025-08-21 09:04] LABS: Anion Gap 11.0 (3-11); Calcium 8.7 mg/dl (8.6-10.3); Carbon Dioxide 14.0 mmol/L (21-32); Chloride 119.0 mmol/L (98-107); Magnesium 2.1 mg/dl (1.7-2.4); Potassium 3.5 mmol/L (3.5-5.1); Sodium 144.0 mmol/L (136-145)
[2025-08-21 09:09] LABS: Blood Urea Nitrogen 32.0 mg/dl (6-23); Creatinine Clr Calc Pharmacy 45.8 ml/min; Glucose 85.0 mg/dl (70-99(Fasting))
--- NOTE | 2025-08-21 09:52 | Nephrology Consultation ---
Date of Consultation August 21, 2025 Assessment & Plan (1) BERE (acute kidney injury): Non-oliguric. Creatinine downtrending. Volume status acceptable. Electrolytes normal. BP low -- lisinopril will be held. Volume depleted on admission. IV plasmalyte infusing at 80 ml/hr. Medications are appropriate for kidney function. BERE attributed to prerenal physiology in setting of recent diarrhea. (2) Stage 3b chronic kidney disease: CKD III (baseline creatinine 1.6-2.0 mg/dL). CKD attributed to DKD, hypertension, smoking, and history of staghorn calculus/recurrent UTI. Hold lisinopril. Document strict I/O's. Repeat metabolic profile tomorrow AM. (3) Normal anion gap metabolic acidosis: Attributed to kidney dysfunction, Topamax, and Diamox. Diarrhea resolved. Diamox dose has been adjusted. Oral NaHCO3 1300 mg BID ordered. Repeat metabolic profile tomorrow AM. History of Present Illness Reason for Consultation: persistent acidosis, pt on diamox Requesting Physician: Goldie Lopez MD Attending Physician: Goldie Lopez MD History of Present Illness Desiree Ferrer is a 49 year-old female with chronic kidney disease, pseudotumor cerebri, history of cavernous angioma in the brain, diabetes mellitus II, hypertension, smoker, OCD, SEA, IBS-D, and recurrent UTI (history of staghorn calculus). She presented to [facility] on August 18 with weakness and inability to care for herself at home. She has seen psychiatry and neurology during the admission. Sertraline and buspirone are provided for mood disorder. Desiree is also maintained on Abilify. She remains very anxious. She is concerned that her creatinine is elevated from baseline. Laboratory studies also notable for NAGMA. She remains on Topamax and Diamox. IV fluids with plasmalyte have been provided. Urine studies on admission consistent with evidence of chronic cystitis. Desiree does not endorse any concerning GI symptoms at this time. However, prior to admission, she experienced several days of diarrhea attributed to IBS-D. Serum creatinine was 2.7 mg/dL on admission. Baseline creatinine is approximately 1.6-2.0 mg/dL. Desiree follows in the nephrology clinic with Dr. Damon. Records from Dr. Damon were reviewed today. I discussed the patient's history and plan of care with Dr. Lopez. Allergies Allergy/AdvReac Type Severity Reaction Status Date / Time adhesive tape Allergy Severe Redness of Verified 02/27/25 13:16 Skin Penicillins Allergy Severe Rash Verified 02/27/25 13:16 aspirin AdvReac Severe Advised to Verified 02/27/25 13:16 avoid "due to angioma" blood thinner AdvReac Severe Advised to Uncoded 02/27/25 13:16 avoid "due to angioma" Home Medications Medication Instructions Recorded Confirmed Type cholecalciferol (vitamin D3) 50 50 mcg PO QAM 11/18/20 08/18/25 History mcg (2,000 unit) capsule cyanocobalamin (vitamin B-12) 500 1,000 mcg PO .Q OTHER DAY IN AM 11/18/20 08/18/25 History mcg tablet acetazolamide 500 mg 500 mg PO BID 09/23/22 08/18/25 History capsule,extended release sertraline 100 mg tablet 200 mg PO QAM 09/23/22 08/18/25 History topiramate 200 mg tablet 200 mg PO BID 09/23/22 08/18/25 History famotidine 20 mg tablet (Pepcid) 20 mg PO HS 11/04/22 08/18/25 History sitagliptin phosphate 50 mg tablet 50 mg PO HS 12/01/22 08/18/25 History (Januvia) ferrous sulfate 325 mg (65 mg 325 mg PO QPM 04/23/23 08/18/25 History iron) tablet (iron) lisinopril 5 mg tablet 5 mg PO HS 04/23/23 08/18/25 History ascorbic acid (vitamin C) 500 mg 500 mg PO BID 04/21/24 08/18/25 History tablet,extended release (Vitamin C With Uyen Hips) atorvastatin 10 mg tablet (Lipitor) 10 mg PO HS 04/21/24 08/18/25 History buspirone 30 mg tablet 30 mg PO BID 04/21/24 08/18/25 History hydrocortisone 2.5 % topical cream 1 applic VA BID PRN hemorrhoids 04/21/24 08/18/25 History with perineal applicator nystatin 100,000 unit/gram topical 1 applic topical DAILY 01/17/25 08/18/25 History powder solifenacin 10 mg tablet (Vesicare) 10 mg PO QAM #30 tabs 08/15/25 08/18/25 Rx clindamycin phosphate 1 % lotion 1 applic topical DAILY PRN 08/18/25 08/18/25 History inflammed boils hyoscyamine sulfate 0.375 mg 0.375 mg PO TID 08/18/25 08/18/25 History tablet,extended release,12 hr loperamide 2 mg capsule (Imodium 2 mg PO Q4H PRN Diarrhea 08/18/25 08/18/25 History A-D) lorazepam 1 mg tablet 1 mg PO Q8H 08/18/25 08/18/25 History omeprazole 40 mg capsule,delayed 40 mg PO BID 08/18/25 08/18/25 History release psyllium 1 packet PO DAILY 08/18/25 08/18/25 History Patient History Medical History (Updated 08/20/25 @ 10:49 by Daniel Carson MD) Cavernous angioma Encounter for pre-operative examination UTI (urinary tract infection) (07/04/24) seen at [facility] ED on 07/04/24, Urology office to send records, pt. given script for macrobid, will start first dose tonight History of recent hospitalization Admitted after 05/16/24 urology surgery; D/C 05/19/24; received 1 unit PRBCs 05/18/24 Boil of groin pt described hx of "boils" around perineum area, states worsen with stress. has had these get infected in past with purulent drainage requiring abx. has clindaymycin ointment to use. Hx of colonic polyps History of postoperative nausea and vomiting Thrombocytopenia (04/2024) dx during 04/2024 admission [facility]; mild; monitoring History of recent fall 05/04/24, while amb w/ walker while inpt at [facility]. no loc, no head strike Arthritis Left nephrolithiasis Hemorrhoids occasional bleeding Ureteral stent present (06/06/24) Iron deficiency anemia monitored during inpt admission 04/2024. Iron was low; pt had been off of iron supplement and it was resumed. No signs of GI bleed. Per D/C summary: "She denies any dizziness. No hypotension. No indication for blood transfusion. Pt advised to f/u with PCP outpt. During 05/2024 admission, pt received 1 unit PRBCs on 05/18/24 and advised to f/u with PCP 1 week after hospital D/C Angioma brain angioma -- follows with [facility] neurology Osteoarthritis Diabetes mellitus, type 2 NIDDM Chronic sinusitis Staghorn calculus current - left side (had procedure 03/2024 in [place] and 04/2024 and 05/2024 [facility] for this) History of recurrent UTI (urinary tract infection) Legally blind VANDANA (obstructive sleep apnea) Bipap at night; not using currently Hx of necrotizing fasciitis (2017) unknown cause. IBS (irritable bowel syndrome) GERD (gastroesophageal reflux disease) Pseudotumor cerebri follows with [facility] Neurology Orthopnea occasional Overactive bladder Anxiety severe Depression OCD (obsessive compulsive disorder) severe - pt. would only participate in PAT phone assessment with "ita" from Dr. Trujillo office on phone with her Morbid obesity with BMI of 70 and over, adult Asthma well controlled Surgical History Hx of colonoscopy with polypectomy (05/2023) History of cystoscopy (06/06/24) multiple cystoscopy and lithotripsy/ stent procedures. most recent 06/06/24 History of open reduction and internal fixation (ORIF) procedure LLE - as a chhild History of tonsillectomy History of x2 History of cholecystectomy History of surgery (2017) RLE x 7 surgeries r/t necrotizing fasciitis Family History Other Bladder cancer No family history of adverse response to anesthesia Social History Smoking Status: Former smoker Tobacco Type: Cigarettes Second Hand Exposure: No; Do You Dip or Chew Tobacco: No; Hx Alcohol Use: No Hx Substance Use: No Preferred Language: Frisian Communication Ability: Effective Communication Ability Comment: extremely anxious Visual Impairment: Blindness Hearing Ability: Normal Patrol Captain Required: No Beliefs That Will Affect Care: None Current Living Situation: Family Current Living Situation Comment: lives in an apartment with boyfriend and 2 sons How many Children do You have: 2 Feels Safe at Home: Yes Diet: regular caffeine: Yes (diet sweet tea. occasional pepsi) Dental Care, Regularly: No Physical Activity Frequency: Does not Exercise Seatbelt Use: always Do you think of yourself as: straight/heterosexual Gender Identity: Female Assistive Devices: Lift Chair and Walker Review of Systems 2 Review of Systems: All systems reviewed & are unremarkable except as noted in HPI & below Constitutional: + weakness; no fever and no chills Cardiovascular: no edema Gastrointestinal: + change in bowel habits and + diarrhea/ loose stools; no abdominal pain Psychiatric: + anxiety Physical Exam 2 Constitutional: well developed and + morbidly obese; no acute distress Eyes: + anicteric sclerae; no corneal abnormal ity ENMT: Mouth: no oral mucosal abnormality and oral mucous membranes not dry Neck: normal visual inspection and trachea midline Respiratory: normal respiratory effort Auscultation: lungs clear to auscultation bilaterally Cardiovascular: Rate/Rhythm: regular rate Heart Sounds: normal S1 and normal S2 Extremities: no edema Musculoskeletal: Extremities: no cyanosis and no clubbing Skin: normal turgor; no lesions Neurologic: Motor/Sensory: no tremor and no asterixis Psychiatric: Orientation: alert and oriented x 3 Results & Data Vital Signs (Past 12 Hours) Vital Signs Temp Pulse Pulse Resp BP Pulse Ox O2 Del Method 08/21/25 07:32 82 08/21/25 07:04 37.0 C 77 18 102/65 97 Room Air 08/21/25 02:02 36.9 C 83 18 105/66 98 Room Air 08/20/25 23:16 36.9 C 81 18 94/43 L 97 Room Air 08/20/25 22:51 93 H Laboratory Results Laboratory Results - last 24 hr 08/20/25 08/20/25 08/20/25 12:19 16:49 17:09 WBC RBC Hgb Hct MCV MCH MCHC RDW Std Deviation RDW Coeff of Eleni Plt Count MPV VBG pH 7.25 L VBG pCO2 28 L VBG pO2 56 VBG HCO3 12 VBG O2 Saturation 89.4 VBG Base Excess -13.4 Sodium Potassium Chloride Carbon Dioxide Anion Gap BUN Creatinine Est Cr Clr Drug Dosing eGFR BUN/Creatinine Ratio Glucose POC Glucose 101 H 107 H Calcium Phosphorus Magnesium 08/20/25 08/21/25 08/21/25 20:11 07:05 07:55 WBC 5.43 RBC 3.13 L Hgb 8.1 L Hct 26.6 L MCV 85.0 MCH 25.9 MCHC 30.5 L RDW Std Deviation 54.4 H RDW Coeff of Eleni 17.3 H Plt Count 122 L MPV 9.4 VBG pH VBG pCO2 VBG pO2 VBG HCO3 VBG O2 Saturation VBG Base Excess Sodium 144 Potassium 3.5 Chloride 119 H Carbon Dioxide 14 L Anion Gap 11 BUN 32 H Creatinine 2.32 H D Est Cr Clr Drug Dosing 45.8 eGFR 25.00 BUN/Creatinine Ratio 13.8 Glucose 85 POC Glucose 119 H 104 H Calcium 8.7 Phosphorus 3.8 Magnesium 2.1 PG Care Time/CCT Total # of Minutes Spent Total Time Spent with Patient: Total time spent is greater than 50% in coordination of care (as documented) at patient's floor/unit and/or counseling patient: Coding Level of Care Code 21623 IN/OBS CONSULT LVL 4,60M Diagnoses BERE (acute kidney injury) N17.9 Stage 3b chronic kidney disease N18.32 Normal anion gap metabolic acidosis E87.20
--- NOTE | 2025-08-21 15:19 | Hospitalist Progress Note ---
Date of Service August 21, 2025 Assessment & Plan (1) BERE (acute kidney injury): (2) Stage 3b chronic kidney disease: (3) Morbid obesity: (4) Weakness: (5) Normal anion gap metabolic acidosis: Plan 49 yr old F with PMHx of OCD, HLD, anxiety, GERD, iron deficiency, HTN, pseudotumor cerebri with papilledema of left eye, staghorn calculus presents to the hospital because her legs were giving out leading to falls. She stated she wants to be evaluated for rehab or chcf placement. #BERE #Normal anion gap metabolic acidosis #Hyperchloremia - contributors to acidosis (topiramate and diamox) - s/p 1L bolus in the ED - spoke with neurology, recs reduced dose of diamox - cont plasmalyte infusion - encourage oral hydration - reassess BMP in the AM - nephro recs appreciated, na bicarb dose increased #Pseudotumor cerebri with h/o papilledema of the left eye - pt follows with neurology in [place] - pt is blind in the left and blurry vision the right (vision is unchanged) - she is already on topiramate - neuro recs appreciated - diamox resumed at 50% reduced dose , will need outpatient follow up with ophthalmology #Recurrent falls - fall precautions - PT / OT recs rehab #Abnormal UA #Staghorn calculus - pt does not have leukocytosis, fever, dysuria, confusion - ID note reviewed from 07/16/25, recommends no further treatment for UTI unless pt is symptomatic (pain, dysuria, fever / chills, confusion). Given pt has no symptom, will hold off on further treatment - UCx: more than 3 types of organism present #Chronic anemia - Hgb stable between 7.5 - 8.5 - in the setting of CKD, chronic disease - Hgb stable, monitor at this time #Thrombocytopenia - Plt 136 on admission, currently 100 , increased to 122 - cont to monitor, if significantly decline, will request Heme eval #Hypertension - intermittently hypotensive while here, unsure accuracy given pt's underlying obesity - lisinopril on hold #HLD - cont statin #OCD #Anxiety - cont buspirone - psych recs appreciated- recommend increasing sertraline 200mg to 250mg and adding abilify 5mg po daily (08/19- pt did refuse to take Abilify and wanted to wait until 08/20) - EKG ordered for 08/21 #DM II - hold sitagliptin - sens correctional scale - A1c: 5 - hypoglycemic protocol #DVT ppx - lovenox subq #Dispo- resolution of metabolic acidosis, neurology eval #Code status: Full code Admission and Anticipated Discharge Date Admission Date: August 18, 2025 Subjective No acute events overnight With re-initiation of diamox, though lower dose, acidosis is persisting Pt has no new complaints Review of Systems Review of Systems: Comprehensive ROS completed and is otherwise negative. Physical Exam Physical Exam: Gen: obese female, no acute distress, sitting in chair HEENT: NC/AT, MMM Lungs: nonlabored breathing, CTAB CVS: s1s2nl, RRR Abd: nl bowel sounds, soft, NT / ND : no awad Ext: no edema Neuro: awake, alert Psych: anxious, repetitive, but overall cooperative Results & Data Results & Data Vital Signs (Past 12 Hours) Vital Signs Temp Pulse Pulse Resp BP Pulse Ox O2 Del Method 08/21/25 14:37 86 08/21/25 11:02 37.0 C 90 20 94/61 L 98 Room Air 08/21/25 10:34 Room Air 08/21/25 07:32 82 08/21/25 07:04 37.0 C 77 18 102/65 97 Room Air PG Care Time/CCT Total # of Minutes Spent Total Time Spent with Patient: Total time spent is greater than 50% in coordination of care (as documented) at patient's floor/unit and/or counseling patient: Coding Level of Care Code 45983 SUB INP/OBS CARE 2/35MIN Diagnoses BERE (acute kidney injury) N17.9 Stage 3b chronic kidney disease N18.32 Morbid obesity E66.01 Weakness R53.1 Normal anion gap metabolic acidosis E87.20
[2025-08-21] MEDS: SODIUM BICARBONATE 650 MG TAB PO SCH (21:52)
[2025-08-21] MEDS: MUPIROCIN 2% OINT 22 GM TUBE EXT SCH (21:56)
[2025-08-21] MEDS: OMEPRAZOLE 20 MG CAPCR PO SCH (22:03)
[2025-08-22] MEDS: LORazepam 1 MG TAB PO SCH (04:17)
[2025-08-22 07:38] LABS: Anion Gap 9.0 (3-11); Calcium 8.7 mg/dl (8.6-10.3); Carbon Dioxide 16.0 mmol/L (21-32); Chloride 119.0 mmol/L (98-107); Potassium 3.6 mmol/L (3.5-5.1); Sodium 144.0 mmol/L (136-145)
[2025-08-22 07:43] LABS: Blood Urea Nitrogen 32.0 mg/dl (6-23); Creatinine Clr Calc Pharmacy 48.3 ml/min; Glucose 92.0 mg/dl (70-99(Fasting))
--- NOTE | 2025-08-22 09:39 | Neurology Progress Note ---
Date of Service August 22, 2025 Assessment & Plan (1) Pseudotumor cerebri: (2) Cavernous angioma: (3) Weakness: (4) OCD (obsessive compulsive disorder): Plan Patient carries a longstanding diagnosis of pseudotumor cerebri now essentially blind. She has been on acetazolamide for years and I am not certain that she even has increased intracranial pressure still. She is not having headaches. I suspect that the patient really does not have increased intracranial pressure anymore. The patient apparently has a cavernous angioma that may have bled in the past but have no details regarding this. She has no history of seizures and remains on a relatively high dose of topiramate. I spoke with Dr. Rojo regarding her medication and he believes that topiramate is contributing to the metabolic acidosis as is the acetazolamide. The patient has weakness in the legs likely from dis-use and she falls. An underlying polyneuropathy cannot be excluded. Her severe anemia, which also contributes to her sense of weakness and fatigue. Patient has severe OCD and anxiety on medication. This apparently is adequately controlled. She saw Dr. Huber, psychiatry, who initiated Abilify 5 mg daily for her conditions. Recommendations: 1. The patient would have to see an forestry foreman or manganese breaker to see if there is still any evidence of increased intracranial pressure/papilledema. - If not, she does not need acetazolamide. - If there is, she could continue on acetazolamide or switch to Dyazide daily. 2. Continue acetazolamide at 250 mg twice a day. The metabolic side effects of acetazolamide tend to be dose-dependent and the lower dose will help 3. Decrease topiramate to 100 mg twice a day. This morning check a random topiramate level - She is not having headaches and she has never had any seizures. Nevertheless she is worried about seizures from her cavernous angioma. - Normally, I would order an MRI of the brain, without contrast because of her kidney status, but the patient does not want to consider an MRI. - Topiramate can also act as a mood stabilizer and help with weight loss, but she does not need high doses for that and lowering will help the metabolic acidosis. 4. I have canceled the EMG and nerve conduction study that was scheduled for this afternoon at the office. We can put in a new order for EMG and nerve study of the left arm and left leg to be done as an neurology outpatient. 5. Continue to encourage the patient to participate with physical and Occupational Therapy. 6. Case management consult - The patient cannot go home as she is not managing well with frequent falling. - She will need to be placed or perhaps go to a rehabilitation hospital temporarily, if she qualifies. 7. Follow-up with the patient's neurologist after discharge (Leydi Mora DO, [place]) 8. Weight loss (consider injections). This would only help with her central nervous system disease and would help with ambulation. 9. Follow-up with ophthalmology/optometry Radha Santiago, NORBERTO Diaz) as soon as possible after discharge Overall, I spent a total of 55 minutes with this case including review of records, direct evaluation of the patient, report generation, and discussion of the case with the patient and RN at bedside, Dr. Redd, and Dr. Briseno including differential diagnosis and treatment options. Admission and Anticipated Discharge Date Admission Date: August 18, 2025 Subjective Patient still somewhat anxious particularly over her diagnosis of "metabolic acidosis". She is also worried about changing the Topamax dose medicine she "might have seizures from her cavernous angioma". She denies pain or headache. Apparently she has been refusing PT and OT. hemoglobin was 8.1 and hematocrit 26.6. BUN was 32 and creatinine 2.2. Carbon oxide was 16 and chloride 119 with normal sodium and potassium. She has an anion gap of 9 Topiramate continues at 200 mg twice a day and Diamox was decreased to 250 mg twice a day Results & Data Vital Signs (Past 12 Hours) Vital Signs Temp Pulse Pulse Resp BP BP Pulse Ox 08/22/25 07:59 36.7 C 77 20 104/63 98 08/22/25 03:43 36.6 C 86 20 128/67 96 08/21/25 22:27 37.0 C 82 20 94/53 L 97 08/21/25 22:00 85 O2 Del Method 08/22/25 07:59 Room Air 08/22/25 03:43 Room Air 08/21/25 22:27 Room Air 08/21/25 22:00 Exam (Neuro) Physical Exam: She is awake and alert. Speech is without aphasia or dysarthria. Mood is normal and affect is appropriate although she can get anxious at times. Thought processes are intact to conversation There is no facial droop and tongue is midline. She is blind in the left eye and sees some shadows/lights with the right eye. Coordination is normal in the arms without ataxia. Strength seems symmetrical in the arms. PG Care Time/CCT Total # of Minutes Spent Total Time Spent with Patient: Total time spent is greater than 50% in coordination of care (as documented) at patient's floor/unit and/or counseling patient: Coding Level of Care Code 66273 SUB INP/OBS CARE 3/50MIN Diagnoses Pseudotumor cerebri G93.2 Cavernous angioma D18.00 Weakness R53.1 OCD (obsessive compulsive disorder) F42.9 Time Spent (min) 55
--- NOTE | 2025-08-22 10:00 | Nephrology Progress Note ---
Date of Service August 22, 2025 Assessment & Plan (1) BERE (acute kidney injury): Plan: Non-oliguric. Creatinine downtrending. Volume status acceptable. Electrolytes normal. BP low -- lisinopril held. Volume depleted on admission. IV plasmalyte infusing at 80 ml/hr. IVF may be stopped after current bag complete. Medications are appropriate for kidney function. BERE hemodynamically mediated. (2) Stage 3b chronic kidney disease: Plan: CKD III (baseline creatinine 1.6-2.0 mg/dL). CKD attributed to DKD, hypertension, smoking, and history of staghorn calculus/recurrent UTI. Hold lisinopril. Document strict I/O's. Repeat metabolic profile tomorrow AM. (3) Normal anion gap metabolic acidosis: Plan: Attributed to kidney dysfunction, GI losses, Topamax, and Diamox. Diarrhea resolved. Diamox dose has been adjusted. I discussed with Dr. Carson this AM. Topamax dose is also being weaned. Oral NaHCO3 1300 mg BID ordered. Repeat metabolic profile tomorrow AM. (4) Iron deficiency anemia: Plan: Chronic. Repeat H/H tomorrow AM and check iron profile with next labs. Admission and Anticipated Discharge Date Admission Date: August 18, 2025 Subjective No acute events overnight. Desiree remains very anxious but otherwise she feels well. No diarrhea. No headaches. Afebrile. Review of Systems Review of Systems: All systems reviewed & are unremarkable except as noted in HPI & below Physical Exam Constitutional: well developed and + morbidly obese; no acute distress Eyes: + anicteric sclerae; no corneal abnormal ity ENMT: Mouth: no oral mucosal abnormality and oral mucous membranes not dry Neck: normal visual inspection and trachea midline Respiratory: normal respiratory effort Auscultation: lungs clear to auscultation bilaterally Cardiovascular: Rate/Rhythm: regular rate Heart Sounds: normal S1 and normal S2 Extremities: no edema Musculoskeletal: Extremities: no cyanosis and no clubbing Skin: normal turgor; no lesions Neurologic: Motor/Sensory: no tremor and no asterixis Psychiatric: Orientation: alert and oriented x 3 Results & Data Vital Signs (Past 12 Hours) Vital Signs Temp Pulse Pulse Resp BP BP Pulse Ox 08/22/25 07:59 36.7 C 77 20 104/63 98 08/22/25 03:43 36.6 C 86 20 128/67 96 08/21/25 22:27 37.0 C 82 20 94/53 L 97 08/21/25 22:00 85 O2 Del Method 08/22/25 07:59 Room Air 08/22/25 03:43 Room Air 08/21/25 22:27 Room Air 08/21/25 22:00 Laboratory Results Laboratory Results - last 24 hr 08/21/25 08/21/25 08/21/25 11:20 17:00 20:55 Sodium Potassium Chloride Carbon Dioxide Anion Gap BUN Creatinine Est Cr Clr Drug Dosing eGFR BUN/Creatinine Ratio Glucose POC Glucose 131 H 104 H 112 H Calcium 08/22/25 08/22/25 06:36 07:42 Sodium 144 Potassium 3.6 Chloride 119 H Carbon Dioxide 16 L Anion Gap 9 BUN 32 H Creatinine 2.20 H Est Cr Clr Drug Dosing 48.3 eGFR 26.65 BUN/Creatinine Ratio 14.5 Glucose 92 POC Glucose 104 H Calcium 8.7 PG Care Time/CCT Total # of Minutes Spent Total Time Spent with Patient: Total time spent is greater than 50% in coordination of care (as documented) at patient's floor/unit and/or counseling patient: Coding Level of Care Code 12658 SUB INP/OBS CARE 3/50MIN Diagnoses BERE (acute kidney injury) N17.9 Stage 3b chronic kidney disease N18.32 Normal anion gap metabolic acidosis E87.20 Other iron deficiency anemia D50.8 Iron deficiency anemia type: other iron deficiency (4) Iron deficiency anemia Iron deficiency anemia type: other iron deficiency Qualified Code(s): D50.8 - Other iron deficiency anemias
--- NOTE | 2025-08-22 20:20 | Hospitalist Progress Note ---
Date of Service August 22, 2025 Assessment & Plan (1) BERE (acute kidney injury): Plan: cf., creatinine 2.71, GFR 20.75 mL/min (08/18/2025, 9:55am)(admission). cf., creatinine 2.20, GFR 26.65 mL/min (08/22/2025, 6:36am). cf., CKD stage III with baseline creatinine range, 1.60 - 1.73 (05/06/2024 - 04/02/2025). Etiology of BERE is due to diarrhea. Hence, patient continues to be (1) held off lisinopril, (2) continue diamox at reduced 250mg PO bid, and (3) decrease topamax from 200mg PO bid to 100mg PO bid (08/22/2025, 9:45pm) to avoid further renal embarrassment. Etiology of CKD is due to HTN. (2) Stage 3b chronic kidney disease: Plan: Due to HTN. (3) Morbid obesity: (4) Weakness: (5) Normal anion gap metabolic acidosis: Plan: Continue diamox at reduced 250mg PO bid, continue sodium bicarbonate 1300mg PO bid, and decrease topamax from 200mg PO bid to 100mg PO bid (08/22/2025, 9:45pm) to mitigate further normal anion gap metabolic acidosis, which in turn, is caused by diarrhea. Plan 49 yr old F with PMHx of OCD, HLD, anxiety, GERD, iron deficiency, HTN, pseudotumor cerebri with papilledema of left eye, staghorn calculus presents to the hospital because her legs were giving out leading to falls. She stated she wants to be evaluated for rehab or jail placement. 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 Given pt has no symptom, will hold off on further treatment - UCx: more than 3 types of organism present #Chronic anemia - Hgb stable between 7.5 - 8.5 - in the setting of CKD, chronic disease - Hgb stable, monitor at this time #Thrombocytopenia - Plt 136 on admission, currently 100 , increased to 122 - cont to monitor, if significantly decline, will request Heme eval #Hypertension - intermittently hypotensive while here, unsure accuracy given pt's underlying obesity - lisinopril on hold #HLD - cont statin #OCD #Anxiety - cont buspirone - psych recs appreciated- recommend increasing sertraline 200mg to 250mg and adding abilify 5mg po daily (08/19- pt did refuse to take Abilify and wanted to wait until 08/20) - EKG ordered for 08/21 #DM II - hold sitagliptin - sens correctional scale - A1c: 5 - hypoglycemic protocol #DVT ppx - lovenox subq #Dispo- resolution of metabolic acidosis, neurology eval #Code status: Full code Admission and Anticipated Discharge Date Admission Date: August 18, 2025 Subjective "Tell me I'm gonna be ok. Tell me I'm not gonna from metabolic acidosis. I need to hear you say it. That way, I won't feel so anxious, so worried that I'm gonna from metabolic acidosis." I subsequently told the patient, "You are going to be ok. You are NOT going to from metabolic acidosis. Review of Systems Constitutional: Positive for high anxiety. Negative for antecedent/coincident fevers, chills, diaphoresis, cough, wheeze, sore throat, hemoptysis, SOB/CARD, chest pains, palpitations, pleurisy, nausea, vomiting, diarrhea, abdominal pain, pelvic pain, hematemesis, hematochezia, melena, hematuria, dysuria, frequency, urgency, headaches, dizziness, lightheadedness, visual changes, hearing changes, weakness, falls, syncope, trauma, travel history, sick contacts, or food/drug ingestions novel or new. All other review of systems are reported as negative by the patient on 08/22/2025. Physical Exam Constitutional: General: Comfortable, cooperative, coherent. Wide awake and alert. Not confused, lethargic, or obtunded. Patient speaks in complete, fluent, and articulate sentences without pause, interruption, cough, or wheeze. HEENT: NC/AT. EOMI. PERRL. No nystagmus, gaze paresis, anisocoria, miosis, mydriasis, chemosis, hyphema, scleral injection, conjunctivitis, or pterygium. No otorrhea. No rhinorrhea. Neck: Supple, no stridor, bruit, or goiter. Jugular venous pressure 5cm above the sternal angle of Rosas, which is typically 5 cm above the right atrium. Lymph: No anterior/posterior cervical lymphadenopathy, supraclavicular/infraclavicular lymphadenopathy, axilla/epitrochlear/inguinal lymphadenopathy. Chest: Symmetric rise and fall with respirations. Non-tender to palpation. Heart: RRR, S1 and S2. No S3 or S4 summation gallop. No tripartite friction rub. No murmur. Lungs: Clear to auscultation and percussion. No audible expiratory wheeze, egophony, pectoriloquy, increase in tactile fremitus, or flatness/dullness to percussion at the bases. Abd: Soft, non-tender, non-distended. Bowel sounds auscultated in all 4 quadr ants. No rebound, guarding, López's sign, or organomegaly. Ext: No clubbing, cyanosis, or edema. 2+ pedal pulses bilaterally. Skin: No decubitus ulcer, exanthem, or enanthem. Neuro: No tremors, tics, or myoclonus. DTR+. Urology: No awad catheter. No urethral discharge. Results & Data Results & Data Vital Signs (Past 12 Hours) Vital Signs Temp Pulse Pulse Resp BP Pulse Ox O2 Del Method 08/22/25 15:28 36.4 C L 82 20 101/63 97 Room Air 08/22/25 12:13 Room Air 08/22/25 12:11 78 08/22/25 11:25 36.6 C 78 20 134/74 98 Room Air Laboratory Results Abnormal lab results 08/21/25 08/22/25 08/22/25 Range/Units 20:55 06:36 07:42 Chloride 119 H (98-107) mmol/L Carbon Dioxide 16 L (21-32) mmol/L BUN 32 H (6-23) mg/dl Creatinine 2.20 H (0.6-1.2) mg/dl POC Glucose 112 H 104 H (70-99) mg/dl 08/22/25 08/22/25 Range/Units 11:55 16:59 Chloride (98-107) mmol/L Carbon Dioxide (21-32) mmol/L BUN (6-23) mg/dl Creatinine (0.6-1.2) mg/dl POC Glucose 117 H 108 H (70-99) mg/dl PG Care Time/CCT Total # of Minutes Spent Total Time Spent with Patient: Total time spent is greater than 50% in coordination of care (as documented) at patient's floor/unit and/or counseling patient: Coding Level of Care Code 68169 SUB INP/OBS CARE 2MIN Diagnoses BERE (acute kidney injury) N17.9 Stage 3b chronic kidney disease N18.32 Morbid obesity E66.01 Weakness R53.1 Normal anion gap metabolic acidosis E87.20
[2025-08-22] MEDS: TOPIRAMATE 100 MG TAB PO SCH (22:21)
[2025-08-23 08:26] LABS: Albumin Level 2.9 gm/dl (3.4-5.0); Anion Gap 8 (3-11); Blood Urea Nitrogen 33 mg/dl (6-23); Calcium 8.4 mg/dl (8.6-10.3); Carbon Dioxide 16 mmol/L (21-32); Chloride 120 mmol/L (98-107); Creatinine Clr Calc Pharmacy 52.8 ml/min; Glucose 102 mg/dl (70-99(Fasting)); Potassium 3.7 mmol/L (3.5-5.1); Sodium 144 mmol/L (136-145); Total Iron Binding Cap Calc 179 mcg/dl (250-450); Transferrin 128 mg/dl (200-360)
[2025-08-23 08:40] LABS: Ferritin 41.8 ng/ml (8-388)
--- NOTE | 2025-08-23 08:44 | Neurology Progress Note ---
Date of Service August 23, 2025 Assessment & Plan (1) Pseudotumor cerebri: (2) Cavernous angioma: (3) Weakness: (4) OCD (obsessive compulsive disorder): Plan Patient carries a longstanding diagnosis of pseudotumor cerebri now essentially blind. She has been on acetazolamide for years and I am not certain that she even has increased intracranial pressure still. She is not having headaches. I suspect that the patient really does not have increased intracranial pressure anymore. The patient apparently has a cavernous angioma that may have bled in the past but have no details regarding this. She has no history of seizures and remains on a relatively high dose of topiramate. I spoke with Dr. Rojo regarding her medication and he believes that topiramate is contributing to the metabolic acidosis as is the acetazolamide. The patient has weakness in the legs likely from dis-use and she falls. An underlying polyneuropathy cannot be excluded. Her severe anemia, also contributes to her sense of weakness and fatigue. Patient has severe OCD and anxiety on medication. This apparently is adequately controlled. She saw Dr. Huber, psychiatry, who initiated Abilify 5 mg daily for her conditions. Patient is reluctant to take this medication although I encouraged her to try. Recommendations: 1. I spoke to the patient's trapper animal, Dr. Radha Hill) today. She saw the patient a year ago and stated that the patient did not have any papilledema or signs of increased pressure. 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 Therefore, I do not believe the patient needs acetazolamide anymore. Dr. Perez will follow the patient up after discharge 2. Discontinue acetazolamide 3. Continue topiramate to 100 mg twice a day. A topiramate level from 10-15 is pending - She is not having headaches and she has never had any seizures. Nevertheless she is worried about seizures from her cavernous angioma. - Normally, I would order an MRI of the brain with and without contrast to evaluate, but in light of her renal issues would do the study without contrast However, the patient has been consistently refusing an MRI. - Topiramate can also act as a mood stabilizer and help with weight loss, but she does not need high doses for that and lowering will help the metabolic acidosis. 4. Patient could have EMG and nerve conduction studies of the legs to evaluate for neuropathy or other reasons for weakness. She does have a neurologist (Dr. Mora, in [place]). Her neurologist could arrange an EMG for her locally or I would be happy to do an EMG at my office in [place]. I cannot do an EMG in the hospital. 5. Continue to encourage the patient to participate with physical and Occupational Therapy. 6. Case management consult - The patient cannot go home as she is not managing well with frequent falling. - She will need to be placed or perhaps go to a rehabilitation hospital temporarily, if she qualifies. 7. Follow-up with the patient's neurologist after discharge (Leydi Mora, Joe HERNANDEZ). I spoke to Dr. Mora today regarding this patient's case 8. Weight loss (hopefully her PCP would consider injections). This would only help with her central nervous system disease and should help with ambulation. 9. Consider iron infusion for the iron deficiency anemia Overall, I spent a total of 50 minutes with this case including review of records, direct evaluation of the patient, report generation, and discussion of the case with the patient and RN at bedside, Dr. Mora, Dr. Santiago, and Dr. Briseno including differential diagnosis and treatment options. Admission and Anticipated Discharge Date Admission Date: August 18, 2025 Subjective Patient has no complaint of pain or headache. Her vision is the same. She has no dizziness sitting in the chair. Her legs are weak but she feels her arms are doing fairly well. She is getting physical and Occupational Therapy. She is very anxious and is filled with questions as to how she is going to do including whether or not she might from these conditions. Blood pressure is 119/62 and she is afebrile. Chemistry profile today reveals a normal potassium and sodium elevated chloride at 120 and low carbon dioxide at 16. BUN is 33 creatinine is 2.0. Glucose is 102. Iron is low at 179 and transferrin low at 128. Albumin is low at 2.9. Results & Data Vital Signs (Past 12 Hours) Vital Signs Temp Pulse Resp BP Pulse Ox O2 Del Method 08/23/25 08:00 36.8 C 79 16 119/62 94 Room Air 08/23/25 05:30 36.7 C 83 18 133/68 97 Room Air 08/22/25 21:00 Room Air Exam (Neuro) Physical Exam: Patient is awake and alert. Speech is without aphasia or dysarthria. Mood is reasonable and affect is appropriate. Thought processes are reasonable to conversation. There is no facial droop and tongue is midline. Coordination is normal in the arms without tremor or ataxia. Legs are weak diffusely as before. Stance sitting up and is poor PG Care Time/CCT Total # of Minutes Spent Total Time Spent with Patient: Total time spent is greater than 50% in coordination of care (as documented) at patient's floor/unit and/or counseling patient: Coding Level of Care Code 33808 SUB INP/OBS CARE 3/50MIN Diagnoses Pseudotumor cerebri G93.2 Cavernous angioma D18.00 Weakness R53.1 OCD (obsessive compulsive disorder) F42.9 Time Spent (min) 50
--- NOTE | 2025-08-23 10:07 | Nephrology Progress Note ---
Date of Service August 23, 2025 Assessment & Plan (1) BERE (acute kidney injury): Plan: Non-oliguric. Creatinine downtrending. Volume status acceptable. Electrolytes normal. BP normotensive. Lisinopril held. IVF stopped yesterday. Volume status acceptable. Medications are appropriate for kidney function. BERE hemodynamically mediated. (2) Stage 3b chronic kidney disease: Plan: CKD III (baseline creatinine 1.6-2.0 mg/dL). CKD attributed to DKD, hypertension, smoking, and history of staghorn calculus/recurrent UTI. Hold lisinopril. Document strict I/O's. Repeat metabolic profile tomorrow AM. Follow up with Dr. Damon post discharge. (3) Normal anion gap metabolic acidosis: Plan: Attributed to kidney dysfunction, GI losses, Topamax, and Diamox. Diarrhea resolved. Diamox dose has been stopped. Topamax dose reduced. Oral NaHCO3 1300 mg BID ordered. Repeat metabolic profile tomorrow AM. (4) Iron deficiency anemia: Plan: Venofer 300 mg IV provided today for SALLY. Second dose of Venofer planned for tomorrow. Admission and Anticipated Discharge Date Admission Date: August 18, 2025 Subjective No acute events overnight. Desiree remains very anxious. No diarrhea. Mild headache. No nausea. Appetite is fair. No fluid retention or edema. Review of Systems Review of Systems: All systems reviewed & are unremarkable except as noted in HPI & below Physical Exam 2 Constitutional: well developed and + morbidly obese; no acute distress Eyes: + anicteric sclerae; no corneal abnormal ity ENMT: Mouth: no oral mucosal abnormality and oral mucous membranes not dry Neck: normal visual inspection and trachea midline Respiratory: normal respiratory effort Auscultation: lungs clear to auscultation bilaterally Cardiovascular: Rate/Rhythm: regular rate Heart Sounds: normal S1 and normal S2 Extremities: no edema Musculoskeletal: Extremities: no cyanosis and no clubbing Skin: normal turgor; no lesions Neurologic: Motor/Sensory: no tremor and no asterixis Psychiatric: Orientation: alert and oriented x 3 Results & Data Vital Signs (Past 12 Hours) Vital Signs Temp Pulse Resp BP Pulse Ox O2 Del Method 08/23/25 08:00 36.8 C 79 16 119/62 94 Room Air 08/23/25 05:30 36.7 C 83 18 133/68 97 Room Air Laboratory Results Laboratory Results - last 24 hr 08/22/25 08/22/25 08/22/25 11:19 11:55 16:59 Hgb Hct Sodium Potassium Chloride Carbon Dioxide Anion Gap BUN Creatinine Est Cr Clr Drug Dosing eGFR BUN/Creatinine Ratio Glucose POC Glucose 117 H 108 H Calcium Phosphorus Iron TIBC Transferrin Transferrin % Sat Ferritin Albumin Topiramate Pending 08/23/25 07:38 Hgb Cancelled Hct Cancelled Sodium 144 Potassium 3.7 Chloride 120 H Carbon Dioxide 16 L Anion Gap 8 BUN 33 H Creatinine 2.01 H Est Cr Clr Drug Dosing 52.8 eGFR 29.70 BUN/Creatinine Ratio 16.4 Glucose 102 H POC Glucose Calcium 8.4 L Phosphorus 4.2 Iron TNP TIBC 179 L Transferrin 128 L Transferrin % Sat TNP Ferritin 41.8 Albumin 2.9 L Topiramate PG Care Time/CCT Total # of Minutes Spent Total Time Spent with Patient: Total time spent is greater than 50% in coordination of care (as documented) at patient's floor/unit and/or counseling patient: Coding Level of Care Code 55074 SUB INP/OBS CARE 3/50MIN Diagnoses BERE (acute kidney injury) N17.9 Stage 3b chronic kidney disease N18.32 Normal anion gap metabolic acidosis E87.20 Other iron deficiency anemia D50.8 Iron deficiency anemia type: other iron deficiency (4) Iron deficiency anemia Iron deficiency anemia type: other iron deficiency Qualified Code(s): D50.8 - Other iron deficiency anemias
[2025-08-23 10:19] LABS: Hematocrit (blood only) 25.3 % (37.0-47.0); Hemoglobin 7.4 g/dl (12.0-16.0)
[2025-08-23] MEDS: IRON SUCROSE 300 MG in SODIUM CHLORIDE 0.9% 250 ML IV ONE (14:37)
[2025-08-23] MEDS: LOPERAMIDE HCL 2 MG CAP PO STA ×2 (16:44→20:24)
--- NOTE | 2025-08-23 21:17 | Hospitalist Progress Note ---
Date of Service August 23, 2025 Assessment & Plan (1) BERE (acute kidney injury): Plan: cf., creatinine 2.71, GFR 20.75 mL/min (08/18/2025, 9:55am)(admission). cf., creatinine 2.20, GFR 26.65 mL/min (08/22/2025, 6:36am). cf., creatinine 2.01, GFR 29.70 mL/min (08/23/2025, 7:38am). cf., CKD stage III with baseline creatinine range, 1.60 - 1.73 (05/06/2024 - 04/02/2025). cf., last recorded creatinine prior to current admission, 2.00, GFR 30.00 mL/min (06/29/2025, 12:00am). Etiology of BERE is due to diarrhea. Hence, patient continues to be (1) held off lisinopril, (2) continue diamox at reduced 250mg PO bid, and (3) decrease topamax from 200mg PO bid to 100mg PO bid (08/22/2025, 9:45pm) to avoid further renal embarrassment. Etiology of CKD is due to HTN. (2) Stage 3b chronic kidney disease: Plan: Due to HTN. (3) Morbid obesity: Plan: BMI 66.9 (height 160.0 cm; weight 171.3 kg). Observe without recommendations for dietary modifications or lifestyle adjustments given patient's advanced age of 49 years and given patient's unwillingness to hear recommendations for dietary modifications or lifestyle adjustments (4) Weakness: Plan: Encourage patient to get up out of chair and out of bed, as patient has steadfastly refused to work with physical therapy service when physical therapy service comes to visit the patient, and yet, patient will arbitrarily decide to get out of chair and out of bed when she feels like getting out of chair and out of bed, primarily to go to the bathroom, unattended, to urinate or defecate. Of equally important note, patient has been discontinued from her home-scheduled omeprazole 40mg PO bid (given the association of this medication and other proton pump inhibitors with an increased risk of falls, fractures, hyponatremia, thrombocytopenia, and aspiration pneumonia) and her home-scheduled solifenacin 10mg PO qam (given the association of this highly anti-cholinergic medication with an increased risk of falls, confusion, dry mouth, blurry vision with dilated pupils, constipation, urinary retention, and heat intolerance) in this patient who concedes to increased weakness and/or falls at home alone. (5) Normal anion gap metabolic acidosis: Plan: s/p diamox 500mg PO bid (start date/time, 08/18/2025, 9:44pm). s/p sodium bicarbonate 650mg PO bid (start date/time, 08/19/2025, 11:53am). s/p topamax 200mg PO bid (start date/time, 08/18/2025, 9:44pm) D/C diamox 250mg PO bid (start date/time, 08/21/2025, 9:16am)(subsequently given on 08/21/2025, 9:51pm; 08/22/2025, 9:02am, 10:21pm) as patient no longer has diarrhea and as patient does not have increased intracranial pressure, as per Neuro Service of Dr. Trevor Carson. Continue sodium bicarbonate 1300mg PO bid (start date/time, 08/21/2025, 9:52pm). Continue topamax 100mg PO bid (start date/time, 08/22/2025, 10:21pm) to mitigate further normal anion gap metabolic acidosis, which in turn, is caused by diarrhea. Plan 49 yrs old female with PMH of FULL CODE @ home alone, morbid obesity with BMI 66.9 (height 160.0 cm; weight 171.3 kg), hyperlipidemia, HTN, GERD on omeprazole 40mg PO bid, urinary incontinence on solicenacin 10mg PO qam, OCD, anxiety, iron deficiency, pseudotumor cerebri with papilledema of left eye, and staghorn calculus who presented to [facility] ER on 08/18/2025, because her legs were giving out leading to falls. She stated she wants to be evaluated for rehab or senior care placement. 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 Given pt has no symptom, will hold off on further treatment - UCx: more than 3 types of organism present #Chronic anemia - Hgb stable between 7.5 - 8.5 - in the setting of CKD, chronic disease - Hgb stable, monitor at this time #Thrombocytopenia - Plt 136 on admission, currently 100 , increased to 122 - cont to monitor, if significantly decline, will request Heme eval #Hypertension - intermittently hypotensive while here, unsure accuracy given pt's underlying obesity - lisinopril on hold #HLD - cont statin #OCD #Anxiety - cont buspirone - psych recs appreciated- recommend increasing sertraline 200mg to 250mg and adding abilify 5mg po daily (08/19- pt did refuse to take Abilify and wanted to wait until 08/20) - EKG ordered for 08/21 #DM II - hold sitagliptin - sens correctional scale - A1c: 5 - hypoglycemic protocol #DVT ppx - lovenox subq #Dispo- resolution of metabolic acidosis, neurology eval #Code status: Full code Admission and Anticipated Discharge Date Admission Date: August 18, 2025 Subjective "The diarrhea has stopped. I had 4 bowel movements this morning (08/23/2025) before you came to see me, and they were formed, not watery or loose. No belly pain. No nausea or vomit. I slid out of my chair onto the floor before you came to see me, Doc, I did not fall out of my chair onto the floor. I did not pass out. I just felt a little weak. Can I stay just one more night? I promise I will go home tomorrow morning (08/24/2025). I live alone, you know." Review of Systems Constitutional: Positive for high anxiety. Negative for antecedent/coincident fevers, chills, diaphoresis, cough, wheeze, sore throat, hemoptysis, SOB/CARD, chest pains, palpitations, pleurisy, nausea, vomiting, diarrhea, abdominal pain, pelvic pain, hematemesis, hematochezia, melena, hematuria, dysuria, frequency, urgency, headaches, dizziness, lightheadedness, visual changes, hearing changes, falls, syncope, trauma, travel history, sick contacts, or food/drug ingestions novel or new. All other review of systems are reported as negative by the patient on 08/23/2025. Physical Exam Constitutional: General: Comfortable, cooperative, coherent. Wide awake and alert. Not confused, lethargic, or obtunded. Patient speaks in complete, fluent, and articulate sentences without pause, interruption, cough, or wheeze. HEENT: NC/AT. EOMI. PERRL. No nystagmus, gaze paresis, anisocoria, miosis, mydriasis, chemosis, hyphema, scleral injection, conjunctivitis, or pterygium. No otorrhea. No rhinorrhea. Neck: Supple, no stridor, bruit, or goiter. Jugular venous pressure 5cm above the sternal angle of [place], which is typically 5 cm above the right atrium. Lymph: No anterior/posterior cervical lymphadenopathy, supraclavicular/ infraclavicular lymphadenopathy, axilla/epitrochlear/inguinal lymphadenopathy. Chest: Symmetric rise and fall with respirations. Non-tender to palpation. Heart: RRR, S1 and S2. No S3 or S4 summation gallop. No tripartite friction rub. No murmur. Lungs: Clear to auscultation and percussion. No audible expiratory wheeze, egophony, pectoriloquy, increase in tactile fremitus, or flatness/dullness to percussion at the bases. Abd: Soft, non-tender, non-distended. Bowel sounds auscultated in all 4 quadrants. No rebound, guarding, López's sign, or organomegaly. Ext: No clubbing, cyanosis, or edema. 2+ pedal pulses bilaterally. Skin: No decubitus ulcer, exanthem, or enanthem. Neuro: No tremors, tics, or myoclonus. DTR+. Urology: No awad catheter. No urethral discharge. Results & Data Results & Data Vital Signs (Past 12 Hours) Vital Signs Temp Pulse Resp BP Pulse Ox O2 Del Method 08/23/25 15:47 36.9 C 83 16 103/58 L 98 Room Air 08/23/25 14:55 Room Air Laboratory Results Abnormal lab results 08/23/25 08/23/25 Range/Units 07:38 09:54 Hgb 7.4 L (12.0-16.0) g/dl Hct 25.3 L (37.0-47.0) % Chloride 120 H (98-107) mmol/L Carbon Dioxide 16 L (21-32) mmol/L BUN 33 H (6-23) mg/dl Creatinine 2.01 H (0.6-1.2) mg/dl Glucose 102 H (70-99(Fasting)) mg/dl Calcium 8.4 L (8.6-10.3) mg/dl Iron 28 L (35-150) mcg/dl TIBC 179 L (250-450) mcg/dl Transferrin 128 L (200-360) mg/dl Albumin 2.9 L (3.4-5.0) gm/dl PG Care Time/CCT Total # of Minutes Spent Total Time Spent with Patient: Total time spent is greater than 50% in coordination of care (as documented) at patient's floor/unit and/or counseling patient: Coding Level of Care Code 77286 SUB INP/OBS CARE 2/35MIN Diagnoses BERE (acute kidney injury) N17.9 Stage 3b chronic kidney disease N18.32 Morbid obesity E66.01 Weakness R53.1 Normal anion gap metabolic acidosis E87.20
[2025-08-23 23:28] VITALS: RESP 18
[2025-08-24] MEDS: OMEPRAZOLE 40 MG CAP PO ONE
[2025-08-24] MEDS ORDERED: OMEPRAZOLE 20 MG CAPCR PO ONE (00:15)
[2025-08-24] MEDS: ONDANSETRON INJ 2 MG/ML 2 ML VIAL IV PRN (06:38)
[2025-08-24 07:08] LABS: Hematocrit (blood only) 22.8 % (37.0-47.0); Hemoglobin 7.0 g/dl (12.0-16.0)
[2025-08-24 07:34] LABS: Anion Gap 8.0 (3-11); Blood Urea Nitrogen 31.0 mg/dl (6-23); Calcium 8.3 mg/dl (8.6-10.3); Carbon Dioxide 17.0 mmol/L (21-32); Chloride 119.0 mmol/L (98-107); Creatinine Clr Calc Pharmacy 53.6 ml/min; Glucose 95.0 mg/dl (70-99(Fasting)); Potassium 3.3 mmol/L (3.5-5.1); Sodium 144.0 mmol/L (136-145)
[2025-08-24] MEDS: IRON SUCROSE 300 MG in SODIUM CHLORIDE 0.9% 250 ML IV ONE ×2 (09:30→09:43)
--- NOTE | 2025-08-24 12:37 | Nephrology Progress Note ---
Date of Service August 24, 2025 Assessment & Plan (1) BERE (acute kidney injury): Plan: Non-oliguric. Creatinine has returned to baseline. Volume status acceptable. Electrolytes normal. BP normotensive. Medications are appropriate for kidney function. BERE hemodynamically mediated. Continue to hold lisinopril. Follow up with Dr. Damon within 2 weeks of discharge. I will sign-off. Please call with questions or concerns. (2) Stage 3b chronic kidney disease: Plan: CKD III (baseline creatinine 1.6-2.0 mg/dL). CKD attributed to DKD, hypertension, smoking, and history of staghorn calculus/recurrent UTI. Continue to hold lisinopril. (3) Normal anion gap metabolic acidosis: Plan: Attributed to kidney dysfunction, GI losses, Topamax, and Diamox. IBS-D. Reassurance provided that she will not from metabolic acidosis. She is advised that this is improving and does not require additional evaluation or treatment now. Diamox dose has been stopped. Continue oral NaHCO3 1300 mg BID. Follow up with Dr. Damon within 1-2 weeks of hospital discharge. No additional nephrology recommendations at this time. Please call with questions or concerns. (4) Iron deficiency anemia: Plan: Venofer was ordered but Desiree is refusing IV iron. Hemoglobin is dropping. She was advised of risks/symptoms of anemia. She has iron deficiency requiring treatment. I will defer to the hospitalist team regarding management. (5) Obsessive compulsive disorder: Plan: ~40 minutes was spent directly with the patient today discussing her concerns and answering questions. Reassurance provided. Psychiatry consultation appreciated. Close outpatient follow up should be arranged with Desiree's primary [employer] (Dr. Damon) at discharge. Admission and Anticipated Discharge Date Admission Date: August 18, 2025 Subjective No acute events overnight. Desiree has refused IV iron. She remains very anxious and in need of repeated and constant reassurance. She continues to report significant weakness. She describes difficulty walking to the bathroom without assistance. She told me repeatedly this morning that she does not feel safe going home. She feels that she needs more time in the hospital or inpatient rehab. She had multiple loose bowel movements yesterday and reports significant concern that diarrhea will worsen her kidney function or place her at risk of bad outcomes from a metabolic acidosis. Reassurance was provided. Desiree does not show any evidence of dehydration. Diamox has been stopped. She is tolerating oral NaHCO3 well. Creatinine has improved to baseline. Review of Systems Review of Systems: All systems reviewed & are unremarkable except as noted in HPI & below Constitutional: + weakness Respiratory: + dyspnea on exertion Gastrointestinal: + diarrhea/loose stools; no abdominal pa in, no blood in stools and no melena Psychiatric: + anxiety Physical Exam Constitutional: well developed and + morbidly obese; no acute distress Eyes: + anicteric sclerae; no corneal abnormal ity ENMT: Mouth: no oral mucosal abnormality and oral mucous membranes not dry Neck: normal visual inspection and trachea midline Respiratory: normal respiratory effort Auscultation: lungs clear to auscultation bilaterally Cardiovascular: Rate/Rhythm: regular rate Heart Sounds: normal S1 and normal S2 Extremities: no edema Musculoskeletal: Extremities: no cyanosis and no clubbing Skin: normal turgor; no lesions Neurologic: Motor/Sensory: no tremor and no asterixis Psychiatric: Orientation: alert and oriented x 3 Results & Data Vital Signs (Past 12 Hours) Vital Signs Temp Pulse Resp BP Pulse Ox O2 Del Method 08/24/25 07:50 36.4 C L 83 18 90/56 L 97 Room Air 08/24/25 07:35 Room Air Laboratory Results Laboratory Results - last 24 hr 08/23/25 08/24/25 08/24/25 21:21 06:23 07:50 Hgb 7.0 L Hct 22.8 L Sodium 144 Potassium 3.3 L Chloride 119 H Carbon Dioxide 17 L Anion Gap 8 BUN 31 H Creatinine 1.98 H Est Cr Clr Drug Dosing 53.6 eGFR 30.24 BUN/Creatinine Ratio 15.7 Glucose 95 POC Glucose 113 H 109 H Calcium 8.3 L PG Care Time/CCT Total # of Minutes Spent Total Time Spent with Patient: Total time spent is greater than 50% in coordination of care (as documented) at patient's floor/unit and/or counseling patient: Coding Level of Care Code 86543 SUB INP/OBS CARE 3/50MIN Diagnoses BERE (acute kidney injury) N17.9 Stage 3b chronic kidney disease N18.32 Normal anion gap metabolic acidosis E87.20 Other iron deficiency anemia D50.8 Iron deficiency anemia type: other iron deficiency Obsessive compulsive disorder F42.9 (4) Iron deficiency anemia Iron deficiency anemia type: other iron deficiency Qualified Code(s): D50.8 - Other iron deficiency anemias
--- NOTE | 2025-08-24 13:04 | Psychiatric Progress Note ---
Date of Service August 24, 2025 Impression / Recommendations Impression Diagnostically consistent with OCD with significant reassurance seeking as part of her compulsions and illness anxiety disorder. Unfortunately her OCD and illness anxiety seem to contribute to at times excessive medical workups and her fears about managing independently in the outpatient setting due to need for frequent reassurance. However, even here in the hospital, and despite hearing from the RN and hospitalist provider that she is getting the appropriate bloodwork and medications she continues to seek excessive reassurance and ask the same questions repeatedly. She also requests help for her OCD symptoms but then refuses medication options due to fears about possible unknown side effects or potential interactions. Acute risk of self-harm is low given denial of SI, future-oriented, wants to be alive. OCD symptoms persist with prominent intrusive obsessions about fear of dying from a medical illness and compulsion of needing to get reassurance from medical providers and have constant monitoring/interventions to ease this discomfort and fear. She denies current SI and seems to have made her comment to the RN last night as a means of trying to prolong her inpatient medical hospitalization due to her fears of not having constant reassurance. It is worth noting that this presentation represents the phenomenon of "contingent suicidality," which is a distinct entity from "non-contingent" suicidality. The operational definition of contingent suicidality is statements about suicide specifically linked to treatment decisions such as admission, medication choices, discharge etc. Patients with contingent suicidality have a 0% 7 year risk of completed suicide as compared to an 11% risk of those with noncontingent suicidality. (Psychiatr Serv. 2002 Nov;53[1]:92-4 http://ps.psychiatryonline.org/doi/abs/10.1176/appi.ps.53.1.92?url_ver=Z39.88- 2003&rfr_id=[email or web address]&rfr_dat=cr_[email or web address] ) Today she denies SI and is future-focused. She is not depressed but rather terr ified that she will from a medical cause. We reflected on some of her help seeking/help rejecting behaviors (not taking abilify to help with psychiatric sx, refusing iron infusions, refusing to work with PT to get stronger and build more independence) and she can partially recognize this and acknowledges her anxiety drives this. However, she's not in a place to want to make any changes at this time nor willing to deal with any temporary discomfort (of starting a new medication or using ERP strategies) to lessen her OCD/anxiety longer-term. We referred her for outpatient psychiatry services as she has no inpatient psych criteria currently (denies SI, denies HI, no psychosis, no christen, able to meet ADLs) and best treatment for OCD is medications plus long-term outpatient structured psychotherapy (ideally exposure response prevention). Unfortunately with OCD individuals are very distressed by their intrusive thoughts and compulsions and yet the best treatment is to set firm but caring boundaries to prevent us from further perpetuating the symptoms especially since reassurance provides only brief relief from distress and can start a vicious cycle of reassurance seeking that worsens OCD symptoms over time (as seems to have occurred in her case). I attempted to preparole counseling aide her on strategies to help her cope when she is discharged, I anticipate on that day she will try to bargain and plead to stay and come up with reasons she needs to stay so would involve extra support on that day to help her cope with what she will likely experience as a scary transition. She is likely to continue to focus on the need for reassurance since her OCD intrusive obsessions are that she is going to from a medical issue and her compulsion to settle this fear is to seek constant verbal reassurance from healthcare providers. Therefore it makes sense why she wants a custodial/hospital because this makes her feel calm initially, but as we've seen in her case and as is typical with OCD, eventually any amount of reassurance/supervision is never enough to stop the intrusions/compulsions so it persists and increased reassurance can even make OCD symptoms worse over time. She's not willing for abilify due to fears about starting new medications but may consider this as an outpt once she discusses and hopefully builds trust with her new outpatient psychiatric provider. Overall, I spent a total of 80 minutes with this case including review of chart records, review of labwork, review of EKG QTc, direct evaluation of the patient at bedside, counseling the patient, discussion of the patient with the hospitalist provider, discussion with the psychiatric liason during clinical rounds and documentation in the electronic health record. (1) Obsessive compulsive disorder: (2) Illness anxiety disorder: (3) Weakness: Plan -Set caring but firm boundaries to avoid providing continual reassurance which can worsen OCD rather than help it. Consider checking in every 30 minutes to help lessen her anxiety and attempt to answer her questions once but then limiting discussion if she begins to ask the same question over and over after an answer and explanation have already been provided. provide educational handouts or medication side effects information where appropriate so that she can reference these if anxiety/OCD worsens after initial discussions. -Continue sertraline 250mg daily -Start abilify 5mg daily once she is willing, likely will need to wait until she builds trust with her new outpatient provider -Can use ativan 1mg po or IV prn for anxiety -Psych liason referred for outpatient psychiatry at [facility] Interval History Identifying Information Desiree is a 49 yo woman with a history of OCD, HLD, anxiety, GERD, iron deficiency, HTN presents to the hospital because her legs were giving out leading to falls and wanting to consider rehab or retirement placement. Psychiatry consulted for OCD and anxiety. Chief Complaint "I don't want to , if I poop too much I'll get acidosis and I could ". Subjective Subjective Patient was seen & assessed and interval progress reviewed. Told RN last evening that "Pt stated with she has to go home on 08/24 she will kill herself. " Per RN note she denied having a plan for suicide. Today she consents to referral for outpatient psychiatry as it seems she will not be approved by insurance for physical rehab or retirement level of care which is what she was hopeful for. She denies suicidal ideation and is focused on goal of eventually getting retirement level of care. She expresses frustration that just because she can walk a few steps does not mean that she doesn't struggle at home physically and she believes she will continue to have falls and issues. She also discusses her challenges with "I have no help" with things like laundry, cleaning and moving around. She denies any access to guns at home. She is distressed about her hemoglobin and wonders why she is not getting a blood transfusion and repeatedly bargains that if she gets a blood transfusion or can be monitored for multiple more days until her hemoglobin improves that then she will go home. Later she again focuses on her distress of not being able to go to a retirement as she feels that something bad will happen to her physically at home. She repeatedly asked "please do not send me home" and describes "I am scared about my IBS I am afraid I will ". She also expresses concerns that she could from ongoing bowel movements causing acidosis or low hemoglobin. She is able to recognize that she does some help seeking help rejecting and states "because I am scared of stuff, I do not do it intentionally". We discussed the Abilify and her reason for continuing to decline this given that it could help with her anxiety and current OCD symptoms that drive her fear of dying. She states "I don't know, I do not like new pills". She remains unwilling to consider trying Abilify here in the inpatient setting where we can monitor her mood, states she might be willing to consider this in the outpatient setting after meeting with a new outpatient psychiatric provider. She continues to ask me about her hemoglobin and seek reassurance about this. She denies symptoms of psychosis and christen. Physical Exam Vital Signs (Past 24 Hours) Last Vital Signs Temp 36.4 C L 08/24/25 07:50 Pulse 83 08/24/25 07:50 Resp 18 08/24/25 07:50 BP 90/56 L 08/24/25 07:50 Pulse Ox 97 08/24/25 07:50 O2 Del Method Room Air 08/24/25 07:50 Results & Data ([facility]) Laboratory Results Laboratory Results - last 24 hr 08/23/25 08/24/25 08/24/25 21:21 06:23 07:50 Hgb 7.0 L Hct 22.8 L Sodium 144 Potassium 3.3 L Chloride 119 H Carbon Dioxide 17 L Anion Gap 8 BUN 31 H Creatinine 1.98 H Est Cr Clr Drug Dosing 53.6 eGFR 30.24 BUN/Creatinine Ratio 15.7 Glucose 95 POC Glucose 113 H 109 H Calcium 8.3 L Current Inpatient Medications Current Inpatient Medications: Current Inpatient Medications Acetaminophen (Acetaminophen 325 Mg Tab) 650 mg PO Q4H PRN PRN Reason: Pain or Fever Stop: 09/19/25 02:03 Last Admin: 08/20/25 02:09 Dose: 650 mg Al Hydrox/Mg Hydrox/Simethicone (Aluminum/Magnesium Susp 30 Ml Udc) 15 ml PO Q6H PRN PRN Reason: acid reflux Stop: 09/17/25 20:08 Aripiprazole (Aripiprazole 5 Mg Tab) 5 mg PO QAM JOEL Stop: 09/18/25 14:59 Last Admin: 08/24/25 09:56 Dose: Not Given Ascorbic Acid (Ascorbic Acid 500 Mg Tab) 500 mg PO BID JOEL Stop: 09/17/25 20:59 Last Admin: 08/24/25 11:33 Dose: 500 mg Atorvastatin Calcium (Atorvastatin 10 Mg Tab) 10 mg PO HS JOEL Stop: 09/17/25 20:59 Last Admin: 08/23/25 23:44 Dose: 10 mg Buspirone HCl (Buspirone 15 Mg Tab) 30 mg PO BID JOEL Stop: 09/17/25 20:59 Last Admin: 08/24/25 11:33 Dose: 30 mg Calamine/Pramoxine (Calamine/Pramoxine Lotion 180 Appln/180 Ml Btl) 1 appln EXT BID PRN PRN Reason: Itching Stop: 09/17/25 21:54 Last Admin: 08/18/25 22:43 Dose: 1 appln Cyanocobalamin (Cyanocobalamin (B-12) 500 Mcg Tablet) 1,000 mcg PO Q48H JOEL Stop: 09/18/25 08:59 Last Admin: 08/23/25 12:40 Dose: 1,000 mcg Dextrose (Dextrose 50% 50 Ml Syringe) 25 - 50 ml IV UD PRN; Protocol PRN Reason: Hypoglycemia Protocol Stop: 09/17/25 18:33 Enoxaparin Sodium (Enoxaparin Inj 40 Mg/0.4 Ml Syr) 40 mg SQ QAM JOEL; Protocol Stop: 09/18/25 08:59 Last Admin: 08/24/25 09:44 Dose: Not Given Famotidine (Famotidine 20 Mg Tab) 20 mg PO HS JOEL Stop: 09/17/25 20:59 Last Admin: 08/23/25 23:12 Dose: 20 mg Ferrous Sulfate (Ferrous Sulfate 325 Mg Tab) 325 mg PO DAILY@[facility] Stop: 09/18/25 17:59 Last Admin: 08/23/25 18:18 Dose: Not Given Glucagon (Glucagon For Inj 1 Mg Vial) 1 mg SQ UD PRN; Protocol PRN Reason: Hypoglycemia Protocol Stop: 09/17/25 18:33 Glucose (Glucose 40% Gel 15 Gm Tube) 15 - 30 gm PO UD PRN; Protocol PRN Reason: Hypoglycemia Protocol Stop: 09/17/25 18:33 Glucose (Glucose 10 Tab/Tube) 4 - 8 tab PO UD PRN; Protocol PRN Reason: Hypoglycemia Protocol Stop: 09/17/25 18:33 Hyoscyamine (Hyoscyamine Sulfate 0.375 Mg Tabcr) 0.375 mg PO TID JOEL Stop: 09/17/25 20:59 Last Admin: 08/24/25 10:58 Dose: 0.375 mg Iron Sucrose 400 mg/ Sodium (Chloride) 270 mls @ 108 mls/hr IV ONE ONE Stop: 08/25/25 09:29 Insulin Aspart (Insulin Aspart Per Unit Charge) 0 units SC ACHS JOEL Stop: 09/17/25 20:59 Last Admin: 08/24/25 12:15 Dose: Not Given Loperamide HCl (Loperamide Hcl 2 Mg Cap) 2 mg PO BID PRN PRN Reason: Diarrhea Stop: 09/22/25 23:27 Lorazepam (Lorazepam 1 Mg Tab) 1 mg PO Q8H JOEL Stop: 09/17/25 22:59 Last Admin: 08/23/25 23:12 Dose: 1 mg Miscellaneous (Carbohydrates For Hypoglycemia ) 15 - 30 gm PO UD PRN PRN Reason: Hypoglycemia Protocol Stop: 09/17/25 18:33 Nystatin (Nystatin Powder 15gm Btl) 1 appln EXT BID PRN PRN Reason: Itching Stop: 09/17/25 20:45 Last Admin: 08/18/25 22:43 Dose: 1 appln Ondansetron HCl (Ondansetron Inj 2 Mg/Ml 2 Ml Vial) 4 mg IV Q4H PRN PRN Reason: Nausea Stop: 09/22/25 23:27 Last Admin: 08/24/25 09:30 Dose: 4 mg Psyllium Hydrophilic Mucilloid (Psyllium Husk 4gm Packet) 4 gm PO DAILY JOEL Stop: 09/18/25 08:59 Last Admin: 08/23/25 10:38 Dose: 4 gm Sodium Bicarbonate (Sodium Bicarbonate 650 Mg Tab) 1,300 mg PO BID JOEL Stop: 09/20/25 20:59 Last Admin: 08/24/25 11:33 Dose: 1,300 mg Topiramate (Topiramate 100 Mg Tab) 100 mg PO BID JOEL Stop: 09/21/25 21:44 Last Admin: 08/24/25 10:58 Dose: 100 mg Vitamin D (Cholecalciferol 25 Mcg (1000 Units) Tab) [address] [facility] Stop: 09/18/25 08:59 Last Admin: 08/24/25 11:34 Dose: 50 mcg
[2025-08-24 14:31] VITALS: O2SAT 96
[2025-08-24] MEDS: SERTRALINE HCL 50 MG TABLET PO SCH (14:39)
[2025-08-24] MEDS: POTASSIUM CHLORIDE CRTAB 20 MEQ TABCR PO STA (15:38)
--- NOTE | 2025-08-24 15:56 | Electrocardiogram Report ---
Test Reason : Blood Pressure : */* mmHG Vent. Rate : 82 BPM Atrial Rate : 82 BPM P-R Int : 162 ms QRS Dur : 112 ms QT Int : 396 ms P-R-T Axes : 61 54 8 degrees QTcB Int : 462 ms Normal sinus rhythm Incomplete right bundle branch block T wave abnormality, consider inferior ischemia Abnormal ECG When compared with ECG of 18-Aug-2025 10:46, Criteria for Inferior infarct are no longer Present Confirmed by Andriy Gaytan ([id number]) on 08/24/2025 3:56:07 PM Referred By: REFERRED SELF Confirmed By: Andriy Gaytan
[2025-08-24 16:00] LABS: Albumin Level 3.2 gm/dl (3.4-5.0); Creatine Kinase 46.0 U/L (26-192); Magnesium 1.8 mg/dl (1.7-2.4)
[2025-08-24 16:15] LABS: Thyroid Stimulating Hormone 1.259 uIu/ml (0.300-4.500)
--- NOTE | 2025-08-24 21:04 | Hospitalist Progress Note ---
Date of Service August 24, 2025 Assessment & Plan (1) BERE (acute kidney injury): Plan: cf., creatinine 2.71, GFR 20.75 mL/min (08/18/2025, 9:55am)(admission). cf., creatinine 2.20, GFR 26.65 mL/min (08/22/2025, 6:36am). cf., creatinine 2.01, GFR 29.70 mL/min (08/23/2025, 7:38am). cf., creatinine 1.98, GFR 30.24 mL/min (08/24/2025, 6:23am). cf., CKD stage III with baseline creatinine range, 1.60 - 1.73 (05/06/2024 - 04/02/2025). cf., last recorded creatinine prior to current admission, 2.00, GFR 30.00 mL/min (06/29/2025, 12:00am). Etiology of BERE is due to diarrhea. Hence, patient continues to be (1) held off lisinopril, (2) continue diamox at reduced 250mg PO bid, and (3) decrease topamax from 200mg PO bid to 100mg PO bid (08/22/2025, 9:45pm) to avoid further renal embarrassment. Etiology of CKD is due to HTN. (2) Stage 3b chronic kidney disease: Plan: Due to HTN. (3) Morbid obesity: Plan: BMI 66.9 (height 160.0 cm; weight 171.3 kg). Observe without recommendations for dietary modifications or lifestyle adjustments given patient's advanced age of 49 years and given patient's unwillingness to hear recommendations for dietary modifications or lifestyle adjustments (4) Weakness: Plan: Encourage patient to get up out of chair and out of bed, as patient has steadfastly refused to work with physical therapy service when physical therapy service comes to visit the patient, and yet, patient will arbitrarily decide to get out of chair and out of bed when she feels like getting out of chair and out of bed, primarily to go to the bathroom, unattended, to urinate or defecate. Of equally important note, patient has been discontinued from her home-scheduled omeprazole 40mg PO bid (given the association of this medication and other proton pump inhibitors with an increased risk of falls, fractures, hyponatremia, thrombocytopenia, and aspiration pneumonia) and her home-scheduled solifenacin 10mg PO qam (given the association of this highly anti-cholinergic medication with an increased risk of falls, confusion, dry mouth, blurry vision with dilated pupils, constipation, urinary retention, and heat intolerance) in this patient who concedes to increased weakness and/or falls at home alone, and in fact, who fell down onto the hallway floor while walking with Physical Therapy Service earlier this afternoon (08/24/2025, 3:00pm). (5) Normal anion gap metabolic acidosis: Plan: s/p diamox 500mg PO bid (start date/time, 08/18/2025, 9:44pm). s/p sodium bicarbonate 650mg PO bid (start date/time, 08/19/2025, 11:53am). s/p topamax 200mg PO bid (start date/time, 08/18/2025, 9:44pm) D/C'd diamox 250mg PO bid (start date/time, 08/21/2025, 9:16am)(subsequently given on 08/21/2025, 9:51pm; 08/22/2025, 9:02am, 10:21pm) as patient no longer has diarrhea and as patient does not have increased intracranial pressure, as per Neuro Service of Dr. Trevor Carson. Continue sodium bicarbonate 1300mg PO bid (start date/time, 08/21/2025, 9:52pm). Continue topamax 100mg PO bid (start date/time, 08/22/2025, 10:21pm) to mitigate further normal anion gap metabolic acidosis, which in turn, is caused by diarrhea. Plan 49 yrs old female with PMH of FULL CODE @ home alone, morbid obesity with BMI 66.9 (height 160.0 cm; weight 171.3 kg), hyperlipidemia, HTN, GERD on omeprazole 40mg PO bid, urinary incontinence on solifenacin 10mg PO qam, OCD, anxiety, iron deficiency, pseudotumor cerebri with papilledema of left eye, and staghorn calculus who presented to [facility] ER on 08/18/2025, because her legs were giving out leading to falls. She stated she wants to be evaluated for rehab or long term placement. 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 Given pt has no symptom, will hold off on further treatment - UCx: more than 3 types of organism present #Chronic anemia - Hgb stable between 7.5 - 8.5 - in the setting of CKD, chronic disease - Hgb stable, monitor at this time #Thrombocytopenia - Plt 136 on admission, currently 100 , increased to 122 - cont to monitor, if significantly decline, will request Heme eval #Hypertension - intermittently hypotensive while here, unsure accuracy given pt's underlying obesity - lisinopril on hold #HLD - cont statin #OCD #Anxiety - cont buspirone - psych recs appreciated- recommend increasing sertraline 200mg to 250mg and adding abilify 5mg po daily (08/19- pt did refuse to take Abilify and wanted to wait until 08/20) - EKG ordered for 08/21 #DM II - hold sitagliptin - sens correctional scale - A1c: 5 - hypoglycemic protocol #DVT ppx - lovenox subq #Dispo- resolution of metabolic acidosis, neurology eval #Code status: Full code Admission and Anticipated Discharge Date Admission Date: August 18, 2025 Subjective "I am not leaving this hospital until I go to [facility]; that is what the Curing Press Operator Rose Ryan told me earlier today. She spent 2 hours talking to me and telling me that she put in a referral for me to go to [facility]. I told her that I had already called up [facility] earlier this morning, and referred myself to go to [facility]. Curing Press Operator Rose Ryan told me that she might not hear back from [facility] until (08/25/2025), or Wednesday (08/26/2025), or even Wednesday (08/27/2025). In any case, I am not leaving this hospital. Oh yeah, the Psychiatrist Dr. Hui Huber also spoke to me earlier this morning after you spoke to me, and she told me that I can restart my zoloft 250mg daily dose. I don't know why I haven't gotten my zoloft 250mg daily dose. I need this medicine for my OCD. I got OCD real bad, if you can't tell already." Review of Systems Constitutional: Positive for high anxiety. Negative for antecedent/coincident fevers, chills, diaphoresis, cough, wheeze, sore throat, hemoptysis, SOB/CARD, chest pains, palpitations, pleurisy, nausea, vomiting, diarrhea, abdominal pain, pelvic pain, hematemesis, hematochezia, melena, hematuria, dysuria, frequency, urgency, headaches, dizziness, lightheadedness, visual changes, hearing changes, falls, syncope, trauma, travel history, sick contacts, or food/drug ingestions novel or new. All other review of systems are reported as negative by the patient on 08/24/2025. Physical Exam Constitutional: General: Comfortable, cooperative, coherent. Wide awake and alert. Not confused, lethargic, or obtunded. Patient speaks in complete, fluent, and articulate sentences without pause, interruption, cough, or wheeze. HEENT: NC/AT. EOMI. PERRL. No nystagmus, gaze paresis, anisocoria, miosis, mydriasis, chemosis, hyphema, scleral injection, conjunctivitis, or pterygium. No otorrhea. No rhinorrhea. Neck: Supple, no stridor, bruit, or goiter. Jugular venous pressure 5cm above the sternal angle of Rosas, which is typically 5 cm above the right atrium. Lymph: No anterior/posterior cervical lymphadenopathy, supraclavicular/infraclavicular lymphadenopathy, axilla/epitrochlear/inguinal lymphadenopathy. Chest: Symmetric rise and fall with respirations. Non-tender to palpation. Heart: RRR, S1 and S2. No S3 or S4 summation gallop. No tripartite friction rub. No murmur. Lungs: Clear to auscultation and percussion. No audible expiratory wheeze, egophony, pectoriloquy, increase in tactile fremitus, or flatness/dullness to percussion at the bases. Abd: Soft, non-tender, non-distended. Bowel sounds auscultated in all 4 quadrants. No rebound, guarding, López's sign, or organomegaly. Ext: No clubbing, cyanosis, or edema. 2+ pedal pulses bilaterally. Skin: No decubitus ulcer, exanthem, or enanthem. Neuro: No tremors, tics, or myoclonus. DTR+. Urology: No awad catheter. No urethral discharge. Results & Data Results & Data Vital Signs (Past 12 Hours) Vital Signs Pulse BP Pulse Ox O2 Del Method 08/24/25 14:15 85 127/77 96 Room Air Laboratory Results Hb 9.0 g/dL (08/18/2025, 9:55am). Hb 7.8 g/dL (08/19/2025, 6:30am). Hb 8.2 g/dL (08/20/2025, 6:34am). Hb 8.1 g/dL (08/21/2025, 7:05am). Hb 7.4 g/dL (08/23/2025, 9:54am). Hb 7.0 g/dL (08/24/2025, 6:23am). Hb 7.5 g/dL (08/24/2025, 3:16pm). cf., baseline Hb range, 7.3 g/dL (05/06/2024, 6:25am) to 8.7 g/dL (06/29/2025, 12:00am). K 3.8 mmol/L (08/17/2025, 12:00am). K 3.7 mmol/L (08/18/2025, 9:55am). K 3.7 mmol/L (08/19/2025, 6:30am). K 3.8 mmol/L (08/20/2025, 6:34am). K 3.5 mmol/L (08/21/2025, 7:05am). K 3.6 mmol/L (08/22/2025, 6:36am). K 3.7 mmol/L (08/23/2025, 7:38am). K 3.3 mmol/L (08/24/2025, 6:23am). PG Care Time/CCT Total # of Minutes Spent Total Time Spent with Patient: Total time spent is greater than 50% in coordination of care (as documented) at patient's floor/unit and/or counseling patient: Coding Level of Care Code 18369 SUB INP/OBS CARE 2/35MIN Diagnoses BERE (acute kidney injury) N17.9 Stage 3b chronic kidney disease N18.32 Morbid obesity E66.01 Weakness R53.1 Normal anion gap metabolic acidosis E87.20
[2025-08-24 22:39] VITALS: BP 128/78; PULSE 82; TEMP 97.9
[2025-08-25] MEDS: IRON SUCROSE 400 MG in SODIUM CHLORIDE 0.9% 250 ML IV ONE (06:19)
[2025-08-25] MEDS: LOPERAMIDE HCL 2 MG CAP PO PRN (09:02)
[2025-08-25 09:57] LABS: Anion Gap 9.0 (3-11); Blood Urea Nitrogen 34.0 mg/dl (6-23); Calcium 8.6 mg/dl (8.6-10.3); Carbon Dioxide 17.0 mmol/L (21-32); Chloride 117.0 mmol/L (98-107); Creatinine Clr Calc Pharmacy 50.0 ml/min; Glucose 126.0 mg/dl (70-99(Fasting)); Potassium 3.6 mmol/L (3.5-5.1); Sodium 143.0 mmol/L (136-145)
--- NOTE | 2025-08-25 14:34 | Discharge Summary ---
Discharge Summary Date of Service August 25, 2025 Principal Dx & Hospital Course #1 = Principal Diagnosis (1) BERE (acute kidney injury): cf., creatinine 2.71, GFR 20.75 mL/min (08/18/2025, 9:55am)(admission). cf., creatinine 2.20, GFR 26.65 mL/min (08/22/2025, 6:36am). cf., creatinine 2.01, GFR 29.70 mL/min (08/23/2025, 7:38am). cf., creatinine 1.98, GFR 30.24 mL/min (08/24/2025, 6:23am). cf., creatinine 2.13, GFR 27.70 mL/min (08/25/2025, 9:21am). cf., CKD stage III with baseline creatinine range, 1.60 - 1.73 (05/06/2024 - 04/02/2025). cf., last recorded creatinine prior to current admission, 2.00, GFR 30.00 mL/min (06/29/2025, 12:00am). Etiology of BERE is due to diarrhea. Hence, patient continues to be (1) held off lisinopril, (2) continue diamox at reduced 250mg PO bid, and (3) decrease topamax from 200mg PO bid to 100mg PO bid (08/22/2025, 9:45pm) to avoid further renal embarrassment. Etiology of CKD is due to HTN. (2) Stage 3b chronic kidney disease: Due to HTN. (3) Morbid obesity: BMI 66.9 (height 160.0 cm; weight 171.3 kg). Observe without recommendations for dietary modifications or lifestyle adjustments given patient's advanced age of 49 years and given patient's unwillingness to hear recommendations for dietary modifications or lifestyle adjustments (4) Weakness: Encourage patient to get up out of chair and out of bed, as patient has barbara hadley refused to work with physical therapy service when physical therapy service comes to visit the patient, and yet, patient will arbitrarily decide to get out of chair and out of bed when she feels like getting out of chair and out of bed, primarily to go to the bathroom, unattended, to urinate or defecate. Of equally important note, patient has been discontinued from her home-scheduled omeprazole 40mg PO bid (given the association of this medication and other proton pump inhibitors with an increased risk of falls, fractures, hyponatremia, thrombocytopenia, and aspiration pneumonia) and her home-scheduled solifenacin 10mg PO qam (given the association of this highly anti-cholinergic medication with an increased risk of falls, confusion, dry mouth, blurry vision with dilated pupils, constipation, urinary retention, and heat intolerance) in this patient who concedes to increased weakness and/or falls at home alone, and in fact, who fell down onto the hallway floor while walking with Physical Therapy Service earlier this afternoon (08/24/2025, 3:00pm). (5) Normal anion gap metabolic acidosis: s/p diamox 500mg PO bid (start date/time, 08/18/2025, 9:44pm). s/p sodium bicarbonate 650mg PO bid (start date/time, 08/19/2025, 11:53am). s/p topamax 200mg PO bid (start date/time, 08/18/2025, 9:44pm) D/C'd diamox 250mg PO bid (start date/time, 08/21/2025, 9:16am)(subsequently given on 08/21/2025, 9:51pm; 08/22/2025, 9:02am, 10:21pm) as patient no longer has diarrhea and as patient does not have increased intracranial pressure, as per Neuro Service of Dr. Trevor Carson. Continue sodium bicarbonate 1300mg PO bid (start date/time, 08/21/2025, 9:52pm). Continue topamax 100mg PO bid (start date/time, 08/22/2025, 10:21pm) to mitigate further normal anion gap metabolic acidosis, which in turn, is caused by diarrhea. Plan 49 yrs old female with PMH of FULL CODE @ home alone, and a raft of medical / psychiatric issues includin. Chronic morbid obesity with BMI 66.9 (height 160.0 cm; weight 171.3 kg). 2. Chronic primary HTN on home-scheduled lisinopril 5mg PO qhs. 3. Chronic hyperlipidemia on home-scheduled atorvastatin 10mg PO qhs. 4. Chronic non-insulin dependent DM2 with HbA1c 5.0% (08/19/2025, 6:30am) on home-scheduled sitagliptin 50mg PO qhs. 5. Chronic diarrhea-predominant IBS on home-scheduled loperamide 2mg PO q4 prn diarrhea. 6. Chronic normal anion gap metabolic acidosis, due to chronic diarrhea. 7. Chronic urinary incontinence on home-scheduled solifenacin 10mg PO qam. 8. Chronic GERD on home-scheduled omeprazole 40mg PO bid and famotidine 20mg PO qhs. 9. Chronic normocytic, normochromic anemia with baseline Hb range, 7.5 g/dL (05/03/2024, 2:48pm) to 8.7 g/dL (06/29/2025, 12:00am), due to anemia of chronic disease (e.g., CKD stage III), with low serum Fe 28 mcg/dL, low TIBC 179 mcg/dL, and normal ferritin 41.8 ng/mL (08/23/2025, 9:54am). 10.Chronic obsessive compulsive disorder on home-scheduled sertraline 200mg PO daily. 11.Chronic anxiety disorder on home-scheduled buspirone 30mg PO bid and lorazepam 1mg PO q8. 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 13.Former left staghorn calculus, s/p left ureteral stent (03/30/2024, 2:23am, [facility] Urologist Dr. Jake Betancourt), s/p multi-stage left ureteroscopy and laser lithotripsy (05/02/2024, 11:10am, [facility] Urologist Dr. Burt Trujillo; 05/16/2024, 7:30am, [facility] Urologist Dr. Burt Trujillo; 06/06/2024, 11:50am, [facility] Urologist Dr. Burt Trujillo; 07/11/2024, 9:10am, [facility] Urologist Dr. Burt Trujillo). who presented to [facility] ER on 08/18/2025, because her legs were giving out leading to falls. Patient stated she wants to be evaluated for rehab or [place] [facility] [place] placement. Patient was subsequently admitted to the inpatient hospitalist service @ [facility] on 08/18/2025 with the following diagnoses: 1. Acute ambulatory dysfunction, culminating in falls at home. Patient sustained an acute mechanical fall in the hallway floor @ [facility] Med-Surg floor on 08/24/2025 while on home-scheduled atorvastatin 10mg PO qhs, hospital-substitute pantoprazole 40mg PO bid (for patient's home-scheduled omeprazole 40mg PO bid), and hospital-substitute oxybutynin 10mg PO qam (for patient's home-scheduled solifenacin 10mg PO qam). Any/all of these three medications may have contributed to patient's acute mechanical fall. Subsequently, all three medications were discontinued immediately and permanently, and were not replaced with any substitute medications on hospital discharge back to her home alone on 08/25/2025. Instead, patient was advised to continue her home-scheduled famotidine 20mg PO qhs (to treat GERD) on hospital discharge back to her home alone on 08/25/2025. Of additional note, patient referred herself to [facility] on 08/24/2025, and which was also endorsed by [facility] Egg Breaking Machine Operator Ms. Rose Ryan; subsequently, [facility] rejected patient's self-referral for acute rehab services @ [facility] on 08/25/2025. Patient was also evaluated on a daily basis by Physical Therapy and Occupational Therapy Services and rebuffed their evaluations on two separate dates for unclear reasons. On the dates that patient agreed to participate with Physical Therapy and Occupational Therapy Services, patient was deemed safe for discharge back to her home alone as patient ambulates readily and easily without need for any assistive device or assistance from nursing staff to walk in her room or to walk in the hallways. On more than one occasion, patient was noted by nursing staff, hospitalists, Psychiatrist, Physical Therapist, Occupational Therapist, and Egg Breaking Machine Operator to engage in behavior/speech that appeared as if patient was exaggerating her symptoms in hysterical fits of anxiety, to find any reason or any justification in order to remain in [facility] to avoid being discharged back to her home alone, or to seek disposition/discharge to [facility] or to a sub-acute fpc facility. 2. Acute kidney injury with admission creatinine 2.90 mg/dL (08/17/2025, 12:00am), superimposed on CKD stage III with baseline creatinine range, 1.60 - 1.73 (05/06/2024 - 04/02/2025). cf., creatinine 2.71, GFR 20.75 mL/min (08/18/2025, 9:55am)(admission). cf., creatinine 2.20, GFR 26.65 mL/min (08/22/2025, 6:36am). cf., creatinine 2.01, GFR 29.70 mL/min (08/23/2025, 7:38am). cf., creatinine 1.98, GFR 30.24 mL/min (08/24/2025, 6:23am). cf., creatinine 2.13, GFR 27.70 mL/min (08/25/2025, 9:21am). cf., CKD stage III with baseline creatinine range, 1.60 - 1.73 (05/06/2024 - 04/02/2025). cf., last recorded creatinine level 2.00, GFR 30.00 mL/min (06/29/2025, 12:00am), which precedes current admission date 08/18/2025. Etiology of BERE is due to (1) chronic watery, non-bloody, non-oily diarrhea, which in turn, is due to chronic IBS and/or (2) home-scheduled lisinopril 5mg PO daily. Hence, patient continues to (1) HOLD off home-scheduled lisinopril 5mg PO daily, (2) RECEIVE a decreased dose, from patient's home-scheduled topiramate 200mg PO bid to hospital-started topiramate 100mg PO bid (08/22/2025, 9:45pm), to avoid further renal embarrassment, on hospital discharge back to her home on 08/25/2025. Etiology of CKD is due to chronic HTN and chronic non-insulin dependent DM2 with HbA1c 5.0% (08/19/2025, 6:30am) on home-scheduled sitagliptin 50mg PO qhs. 3. Chronic diarrhea-predominant IBS on home loperamide 2mg PO q4 prn diarrhea. Patient will continue this home loperamide 2mg PO q4 prn diarrhea medication on hospital discharge home on 08/25/2025. 4. Chronic normal anion gap metabolic acidosis, due to chronic diarrhea. cf., anion gap 18.6, CO2 14.2 mmol/L (08/17/2025, 12:00am). cf., anion gap 8.0, CO2 14.0 mmol/L (08/18/2025, 9:55am). cf., anion gap 9.0, CO2 13.0 mmol/L (08/19/2025, 6:30am). cf., anion gap 9.0, CO2 14.0 mmol/L (08/20/2025, 6:34am). cf., anion gap 11.0, CO2 14.0 mmol/L (08/21/2025, 7:05am). cf., anion gap 9.0, CO2 16.0 mmol/L (08/22/2025, 6:36am). cf., anion gap 8.0, CO2 16.0 mmol/L (08/23/2025, 7:38am). cf., anion gap 8.0, CO2 17.0 mmol/L (08/24/2025, 6:23am). cf., anion gap 9.0, CO2 17.0 mmol/L (08/25/2025, 9:21am). cf., baseline anion gap 8.0 - 10.8 (08/23/2023 - 06/29/2025; baseline CO2 range, 15.0 - 20.7 (08/23/2023 - 06/29/2025). 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 However, both home-scheduled medications can cause/exacerbate patient's chronic normal anion gap metabolic acidosis, which in turn, is due to chronic diarrhea- predominant IBS. Subsequently, [facility] Neurologist Dr. Trevor Carson conferred with [facility] Hearing Stenographer Dr. Darrian Redd, who surmised that both home-scheduled acetazolamide 500mg PO bid and topiramate 200mg PO bid can cause/exacerbate patient's chronic normal anion gap metabolic acidosis, which in turn, is due to chronic diarrhea-predominant IBS. Subsequently, [facility] Neurologist Dr. Trevor Carson conferred with patient's lead fire protection engineer Dr. Radha Santiago ([place]) on 08/23/2025, and Dr. Santiago stated that she saw the patient a year ago, and that the patient did not have any papilledema or any signs of increased intracranial pressure at that time. Dr. 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 Subsequently, [facility] Neurologist Dr. Trevor Carson surmised that patient could discontinue her home-scheduled acetazolamide 500mg PO bid, and that patient's home-scheduled topiramate 200mg PO bid could be decreased to 100mg PO bid, especially as patient does not have an acute/present history of seizure disorder to warrant continuation of patient's home-scheduled topiramate 200mg PO bi Subsequently, patient's home-scheduled acetazolamide 500mg PO bid x 1 dose (08/18/2025, 9:44pm) was decreased to hospital-started acetazolamide 250mg PO bid x 4 doses (08/21/2025, 9:16am, 9:51pm; 08/22/2025, 9:02am, 10:21pm), and then discontinued altogether thereafter. Subsequently, patient's home-scheduled topiramate 200mg PO bid x 8 doses (08/18/2025, 9:44pm; 08/19/2025, 8:22am, 8:13pm; 08/20/2025, 8:00am, 8:36pm; 08/21/2025, 9:26am, 9:52pm; 08/22/2025, 9:09am) was decreased to hospital-s tarted topiramate 100mg PO bid x 6 doses (08/22/2025, 10:21pm; 08/23/2025, 12:41pm, 11:12pm; 08/24/2025, 10:58am, 9:41pm; 08/25/2025, 9:03am). Of final note, patient was discharged back to her home alone on 08/25/2025 OFF hospital-started acetazolamide 250mg PO bid permanently, and ON hospital-started topiramate 100mg PO bid. To this end, patient's [id number], [address] [place] [employer] [address], received an electronic prescription for topiramate 100mg PO bid, #60 tablets, 3 refills, on 08/25/2025, prior to hospital discharge back to her home on 08/25/2025. Given patient's history of chronic diarrhea-predominant IBS, I do not anticipate that patient's chronic normal anion gap metabolic acidosis will ever correct to normal. 5. Chronic obsessive compulsive disorder on home-scheduled sertraline 200mg PO daily. Patient was evaluated by Psychiatry Service of Dr. Hui Huber on 08/19/2025, 2:50pm and again on 08/24/2025, 1:04pm, with recommendations that home-scheduled sertraline 200mg PO daily be increased to hospital-started sertraline 250mg PO daily (start date/time, 08/20/2025, 8:00am, 08/21/2025, 9:25am; 08/22/2025, 9:04am; 08/24/2025, 2:39pm; 08/25/2025, 9:03am). Patient was subsequently discharged back to her home alone on 08/25/2025 on hospital-started sertraline 250mg PO daily. To this end, patient's [id number], [address] [place] [address], received an electronic prescription for sertraline 250mg PO daily, #30 tablets, 3 refills, on 08/25/2025, prior to hospital discharge back to her home on 08/25/2025. 6. Chronic anxiety disorder on home-scheduled buspirone 30mg PO bid and lorazep am 1mg PO q8. Patient was evaluated by Psychiatry Service of Dr. Hui Huber on 08/19/2025, 2:50pm and again on 08/24/2025, 1:04pm, with recommendations that home-scheduled buspirone 30mg PO bid and lorazepam 1mg PO q8 be continued. Patient subsequently received her home-scheduled buspirone 30mg PO bid and lorazepam 1mg PO q8 while in [facility] from admission date 08/18/2025 to discharge date 08/25/2025. Patient was subsequently discharged back to her home alone on 08/25/2025 with home-scheduled buspirone 30mg PO bid and lorazepam 1mg PO q8. Admission HPI Per Admitting Provider 49 yr old F with PMHx of OCD, HLD, anxiety, GERD, iron deficiency, HTN presents to the hospital because her legs were giving out leading to falls. She stated she wants to be evaluated for rehab or [place] [facility] [place] placement. She also complained of increased urination without dysuria, fever pain or confusion). ED workup revealed abnormal UA. Pt was given Ceftriaxone and hospitalist consulted for admission. Pt herself has no other concerns. She did frequently ask if she will be ok and recognized that this is stemming from her OCD. Discharge Exam Constitutional General: Comfortable, cooperative, coherent. Wide awake and alert. Not confused, lethargic, or obtunded. Patient speaks in complete, fluent, and articulate sentences without pause, interruption, cough, or wheeze. HEENT: NC/AT. EOMI. PERRL. No nystagmus, gaze paresis, anisocoria, miosis, mydriasis, chemosis, hyphema, scleral injection, conjunctivitis, or pterygium. No otorrhea. No rhinorrhea. Neck: Supple, no stridor, bruit, or goiter. Jugular venous pressure 5cm above the sternal angle of Ros[place], which is typically 5 cm above the right atrium. Lymph: No anterior/posterior cervical lymphadenopathy, supraclavicular/infraclavicular lymphadenopathy, axilla/epitrochlear/inguinal lymphadenopathy. Chest: Symmetric rise and fall with respirations. Non-tender to palpation. Heart: RRR, S1 and S2. No S3 or S4 summation gallop. No tripartite friction rub. No murmur. Lungs: Clear to auscultation and percussion. No audible expiratory wheeze, egophony, pectoriloquy, increase in tactile fremitus, or flatness/dullness to percussion at the bases. Abd: Soft, non-tender, non-distended. Bowel sounds auscultated in all 4 quadrants. No rebound, guarding, López's sign, or organomegaly. Ext: No clubbing, cyanosis, or edema. 2+ pedal pulses bilaterally. Skin: No decubitus ulcer, exanthem, or enanthem. Neuro: No tremors, tics, or myoclonus. DTR+. Urology: No awad catheter. No urethral discharge. Discharge Plan Discharge Items Patient Disposition: Home - Self-Care Reason For Visit: WEAKNESS Discharge Diagnosis: 1. Acute kidney injury with admission creatinine 2.71, GFR 20.75 mL/min (08/18/2025, 9:55am), superimposed on CKD stage III with baseline creatinine range, 1.60 - 1.73 (05/06/2024 - 04/02/2025). 2. Acute ambulatory dysfunction culminating in fall on hallway floor @ [facility] Med-Surg floor on 08/24/2025 while on home-scheduled atorvastatin 10mg PO qhs, pantoprazole 40mg PO bid, oxybutynin 10mg PO qam. 3. Chronic morbid obesity with BMI 66.9 (height 160.0 cm; weight 171.3 kg). 4. Chronic primary HTN on home-scheduled lisinopril 5mg PO qhs, now OFF lisinopril 5mg PO qhs on hospital discharge home on 08/25/2025, given its potential contribution to patient's acute kidney injury. 5. Chronic hyperlipidemia on home-scheduled atorvastatin 10mg PO qhs, now OFF atorvastatin 10mg PO qhs on discharge home on 08/25/2025, given acute ambulatory dysfunction culminating in fall on hallway floor @ [facility] Med-Surg floor on 08/24/2025 while on atorvastatin 10mg PO qhs, pantoprazole 40mg PO bid, oxybutynin 10mg PO qam. 6. Chronic non-insulin dependent DM2 with HbA1c 5.0% (08/19/2025, 6:30am) on home-scheduled sitagliptin 50mg PO qhs. 7. Chronic diarrhea-predominant IBS on home-scheduled loperamide 2mg PO q4 prn diarrhea. 8. Chronic normal anion gap metabolic acidosis, due to chronic diarrhea. 9. Chronic urinary incontinence on home-scheduled solifenacin 10mg PO qam, now OFF solifenacin 10mg PO qam on discharge home on 08/25/2025. 10.Chronic GERD on home-scheduled omeprazole 40mg PO bid and famotidine 20mg PO qhs, now OFF omeprazole 40mg PO bid and ON famotidine 20mg PO qhs on discharge home on 08/25/2025, given acute ambulatory dysfunction culminating in fall on hallway floor @ [facility] Med-Surg floor on 08/24/2025 while on atorvastatin 10mg PO qhs, pantoprazole 40mg PO bid, oxybutynin 10mg PO qam. 11.Chronic normocytic, normochromic anemia with baseline Hb range, 7.5 g/dL (05/03/2024, 2:48pm) to 8.7 g/dL (06/29/2025, 12:00am), due to anemia of chronic disease (e.g., CKD stage III), with low serum Fe 28 mcg/dL, low TIBC 179 mcg/dL, and normal ferritin 41.8 ng/mL (08/23/2025, 9:54am). 12.Chronic obsessive compulsive disorder on home-scheduled sertraline 200mg PO daily, now ON sertraline 250mg PO qam on discharge home on 08/25/2025. 13.Chronic anxiety disorder on home-scheduled buspirone 30mg PO bid and lorazepam 1mg PO q8. 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 Radha Santiago ([place]) reports that patient no longer has increased intracranial pressure, and (2) acetazolamide causes metabolic acidosis, which can exacerbate patient's chronic normal anion gap metabolic acidosis, which in turn, is due to chronic diarrhea, which in turn, is due to chronic IBS; now ON topiramate 100mg PO bid. 15.Former left staghorn calculus, s/p left ureteral stent (03/30/2024, 2:23am, [facility] Urologist Dr. Jake Betancourt), s/p multi-stage left ureteroscopy and laser lithotripsy (05/02/2024, 11:10am, [facility] Urologist Dr. Burt Trujillo; 05/16/2024, 7:30am, [facility] Urologist Dr. Burt Trujillo; 06/06/2024, 11:50am, [facility] Urologist Dr. Burt Trujillo; 07/11/2024, 9:10am, [facility] Urologist Dr. Burt Trujillo). 16.FULL CODE @ home alone. Condition on Discharge: Fair Activity: Resume your previous activity Lifting: Gradually increase as tolerated Bathing: No limitations Exercise/Sports: Gradually increase as tolerated Weightbearing: Full weightbearing Non-emergency contact: Primary Care Provider Call non-emergency contact if: you have any medication questions Follow-up/Referrals: José Miguel Ohara [Primary Care Provider] - (PLEASE CALL PCP AND MAKE A HOSPITAL FOLLOW UP VISIT IN 5-7 DAYS FROM DISCHARGE.) Diet: Heart Healthy Addtl Attending Provider Instructions: See your PCP Dr. José Miguel Ohara within 5-7 days of hospital discharge. Pending Studies at Discharge: No Stand-Alone Forms: My [facility] [employer], Smoking Cessation Medications and DC Order Prescriptions: New sodium bicarbonate 650 mg Tablet 1,300 mg PO BID Qty: 120 3RF topiramate 100 mg Tablet 100 mg PO BID Qty: 60 3RF sertraline 50 mg Tablet 250 mg PO DAILY Qty: 150 3RF Continued famotidine [Pepcid] 20 mg tablet 20 mg PO HS cholecalciferol (vitamin D3) 50 mcg (2,000 unit) capsule 50 mcg PO QAM Patient Comments: 11am Januvia 50 mg tablet 50 mg PO HS Patient Comments: 11pm nystatin 100,000 unit/gram powder 1 applic topical DAILY ferrous sulfate [iron] 325 mg (65 mg iron) Tablet 325 mg PO QPM Patient Comments: 6pm buspirone 30 mg tablet 30 mg PO BID Patient Comments: 11am and 11pm hydrocortisone 2.5 % cream with perineal applicator 1 applic [place] BID PRN (Reason: hemorrhoids) hyoscyamine sulfate 0.375 mg tablet extended release 12 hr 0.375 mg PO TID Patient Comments: 9am, 5pm, 1am lorazepam 1 mg tablet 1 mg PO Q8H Patient Comments: 9am, 5pm, and 1 am loperamide [Imodium A-D] 2 mg Capsule 2 mg PO Q4H PRN (Reason: Diarrhea) Rx Instructions: administer after each loose stool until symptoms controlled; do not exceed 8 mg per 24 hrs psyllium Packet 1 packet PO DAILY Rx Instructions: mix into at least 8 oz of water or juice before administering Discontinued solifenacin [Vesicare] 10 mg tablet 10 mg PO QAM Qty: 30 3RF Patient Comments: 11am cyanocobalamin (vitamin B-12) 500 mcg tablet 1,000 mcg PO .Q OTHER DAY IN AM Rx Instructions: Unable to verify OTC meds at this date/time acetazolamide 500 mg capsule, extended release 500 mg PO BID Patient Comments: 11am and 11pm sertraline 100 mg tablet 200 mg PO QAM Patient Comments: 11am topiramate 200 mg tablet 200 mg PO BID Patient Comments: 11am and 11pm lisinopril 5 mg tablet 5 mg PO HS Patient Comments: 11pm ascorbic acid (vitamin C) [Vitamin C With Uyen Hips] 500 mg Tablet Extended Release 500 mg PO BID Patient Comments: 11 am and 11pm atorvastatin [Lipitor] 10 mg tablet 10 mg PO HS Patient Comments: 11pm omeprazole 40 mg capsule,delayed release(DR/EC) 40 mg PO BID clindamycin phosphate 1 % lotion 1 applic topical DAILY PRN (Reason: inflammed boils) Patient Comments: Rx Instructions: Apply to the lesions BID when inflamed. Discharge Orders: Discharge Order (Routine); Ordered 08/25/25 Ordered By: Levy Ziegler/Other Patient Handouts: How to Control Your Temper, Your Body's Response to Anxiety Admission Data Admit Date/Time: 08/18/25 15:46 Attending Provider: Levy Briseno Admit Provider: Goldie Lopez Primary Care Provider: José Miguel Ohara Other Providers: Goldie Lopez; Hui Huber; Tim Chiang; Brenda Bartlett; mAaya Salazar; Rigo Mercado; Heron Rojas; Lauren Baig; Emma Vyas; John Bean; Darrian Redd; [facility]; [facility],; [facility] Other Interventions: Discharge Summary Assessment (RN) Last Done: 08/25/25 14:25 Hospital Stay Data Consultations 08/18/25 11:25 ED Decision to Admit Stat 08/19/25 09:05 Consult Psychiatry Routine 08/19/25 16:12 Consult Neurology Routine 08/21/25 09:30 Consult Nephrology Routine 08/24/25 09:44 Consult Mental Health [Consult Psychiatry] Routine Pending Results Patient Have Any Pending Studies at Discharge: No Discharge Instructions Given to Patient (Per Discharging Provider) See your PCP Dr. José Miguel Ohara within 5-7 days of hospital discharge. Total Time Total Time Spent Total Time Spent (In Minutes): 35 minutes. Of this time period, 19 minutes were spent in coordinating patient's discharge. Coding Level of Care Code 76687 INP/OBS DISCH >30 MIN Diagnoses BERE (acute kidney injury) N17.9 Stage 3b chronic kidney disease N18.32 Morbid obesity E66.01 Weakness R53.1 Normal anion gap metabolic acidosis E87.20
== END 2025-08-25 16:59 | disposition home or self-care (01) | DRG 683 ==
LOC: ED 08:18 → 2W 15:46 → SUATTDRO 15:46 → 2W 18:10 → 3W 08-22 21:20